=== PATIENT | male | born 1975 | race Caucasian/White ===

== ENCOUNTER 2017-08-06 19:49 | Emergency (ER) | payer BC, SELFPAY ==
[2017-08-06 19:50] VITALS: BP 150/102; PULSE 95; RESP 18; TEMP 36.6; O2SAT 98; BMI 28.3
--- NOTE | 2017-08-06 21:22 | RAD_ITS ---
STUDY: X-RAY CHEST REASON FOR EXAM: Male, 42 years old. Chest pain TECHNIQUE: Single AP portable view of the chest. COMPARISON: 11/21/13. FINDINGS: The lungs are clear and expanded. There is no demonstrated pleural abnormality. Normal size heart. Normal mediastinum and yvonne. Normal visualized pulmonary arteries. Normal visualized aortic arch and descending thoracic aorta. Normal visualized thoracic spine. Normal visualized ribs, clavicles, and shoulders. There is no demonstrated abnormality of the visualized soft tissue structures of the upper abdomen. RAD/Chest 1 View (Portable) IMPRESSION: Normal x-ray examination of the chest. Electronically Signed: Alexandro Mishra MD at 21:53 EDT , Service support ,
--- NOTE | 2017-08-06 21:22 | EKG12_ITS ---
Test Reason : CP Blood Pressure : / mmHG Vent. Rate : 086 BPM Atrial Rate : 086 BPM P-R Int : 134 ms QRS Dur : 090 ms QT Int : 362 ms P-R-T Axes : 031 024 010 degrees QTc Int : 433 ms Normal sinus rhythm with sinus arrhythmia Normal ECG Confirmed by NIKITA STEVENS, CHRISSIE ([id number]), assistant production editor RUPINDER EPREZ ([id number] on 08/08/2017 1:10:08 PM Referred By: LINDA BASS Confirmed By:CHRISSIE SHELTON MD
[2017-08-06] MEDS: 0.9% Normal Saline 1,000 ML 1000 ML IV (21:24)
[2017-08-06 21:42] VITALS: BP 120/78; PULSE 78; RESP 17; O2SAT 95
[2017-08-06 22:11] VITALS: PULSE 61; RESP 15; O2SAT 97
--- NOTE | 2017-08-06 22:13 | ED.VISSUMM ---
- ER Visit Summary Date of Service: 08/06/17 Chief Complaint: Chest pain History of Present Illness: The patient is a 42 M evaluation of chest pain. Patient states that this afternoon between 2 and 3:00 can have a chest pain which she describes as a pressure and feeling very anxious and short of breath. He states he had tingling in his arms which she describes as icicles. This is been under a lot of stress. His dad recently is now having to move his mom to his place. He has children 19-year-old daughter who is etc. States he tried rest but could not. He states he feels exhausted now but the pain has subsided. He states he gets nervous about chest pain because his father had his first HI in his 40s. Mr. Estes is a smoker and chews tobacco. Physical Examination: Afebrile vital signs are stable Gen: Well-nourished well-developed Head: Normocephalic atraumatic Eyes: Perrl EOMI ENT: TMs clear no rhinorrhea moist mucous membranes Neck: Supple no lymphadenopathy no JVD nontender CVS: Regular rate rhythm no murmurs normal S1-S2 Respiratory: No distress clear to auscultation bilaterally chest nontender Abdomen: Soft nontender nondistended normal bowel sounds no masses Back: Nontender Extremity: Nontender no edema Skin: Normal color no rash Neuro: alert orientated ?3 CN II-XII intact normal strength sensation reflexes gait cerebellar Psych: Patient is slightly anxious Test Results: G shows a sinus rhythm at a rate of 86. This is unchanged from April 2017. His troponin is negative. Chest x-ray negative. Emergency Department Course and Treatment: The patient will be discharged home. He is to follow-up with his doctor. He is to do relaxation techniques when he is feeling stressed. Return if worsening. Impression: 1. Chest pain This note was generated with [employer] dictation software. It may contain incorrect words, spelling, and punctuation that were not noted in review of the chart prior to signing ED Disposition - Plan for ED Patient: Disposition: Home or Assisted Living Chief Complaint: Chest Pain Instructions: ED Panic Attack, ED Chest Pain Atypical Unkn Cause Referrals: Thony Neves DO [STAFF PHYSICIAN] - 1-2 Weeks
[2017-08-06 22:16] VITALS: BP 130/82
--- NOTE | 2017-08-06 22:17 | ED.DCSUM_ITS ---
- ER Visit Summary Date of Service: 08/06/17 Chief Complaint: Chest pain History of Present Illness: The patient is a 42 M evaluation of chest pain. Patient states that this afternoon between 2 and 3:00 can have a chest pain which she describes as a pressure and feeling very anxious and short of breath. He states he had tingling in his arms which she describes as icicles. This is been under a lot of stress. His dad recently is now having to move his mom to his place. He has children 19-year-old daughter who is etc. States he tried rest but could not. He states he feels exhausted now but the pain has subsided. He states he gets nervous about chest pain because his father had his first CT in his 40s. Mr. Estes is a smoker and chews tobacco. Physical Examination: Afebrile vital signs are stable Gen: Well-nourished well-developed Head: Normocephalic atraumatic Eyes: Perrl EOMI ENT: TMs clear no rhinorrhea moist mucous membranes Neck: Supple no lymphadenopathy no JVD nontender CVS: Regular rate rhythm no murmurs normal S1-S2 Respiratory: No distress clear to auscultation bilaterally chest nontender Abdomen: Soft nontender nondistended normal bowel sounds no masses Back: Nontender Extremity: Nontender no edema Skin: Normal color no rash Neuro: alert orientated ?3 CN II-XII intact normal strength sensation reflexes gait cerebellar Psych: Patient is slightly anxious Test Results: G shows a sinus rhythm at a rate of 86. This is unchanged from April 2017. His troponin is negative. Chest x-ray negative. Emergency Department Course and Treatment: The patient will be discharged home. He is to follow-up with his doctor. He is to do relaxation techniques when he is feeling stressed. Return if worsening. Impression: 1. Chest pain This note was generated with [employer] dictation software. It may contain incorrect words, spelling, and punctuation that were not noted in review of the chart prior to signing ED Disposition - Plan for ED Patient: Disposition: Home or Assisted Living Chief Complaint: Chest Pain Instructions: ED Panic Attack, ED Chest Pain Atypical Unkn Cause Referrals: Thony Neves DO [STAFF PHYSICIAN] - 1-2 Weeks
== END 2017-08-06 22:23 | disposition home or self-care (01) ==
PROVIDERS: Emergency Provider Emergency Medicine
DX: R07.9 Chest pain, unspecified (principal); R06.00 Dyspnea, unspecified; R20.2 Paresthesia of skin; R68.2 Dry mouth, unspecified; F17.200 Nicotine dependence, unspecified, uncomplicated; F17.220 Nicotine dependence, chewing tobacco, uncomplicated
CPT/HCPCS: 71045; 84484; 93005; 99285; J7030

== ENCOUNTER 2017-11-11 05:20 | Emergency (ER) | payer BC, SELFPAY ==
[2017-11-11 05:20] VITALS: BP 124/77; PULSE 66; RESP 16; TEMP 36.6; O2SAT 96; BMI 30.8
--- NOTE | 2017-11-11 05:54 | CT_ITS ---
STUDY: CT ABDOMEN AND PELVIS WITH CONTRAST REASON FOR EXAM: Male, 42 years old. RIGHT lower quadrant abdominal pain RADIATION DOSAGE (If Supplied By Facility): CTDIvol = ( 15.77 ) mGy, DLP = ( 982.42 ) mGycm TECHNIQUE: Transaxial images were obtained from the dome of the diaphragm to the symphysis pubis without oral contrast. 100 ml of Isovue 300 contrast was administered. Sagittal and coronal images were reconstructed. Individualized dose optimization techniques were used for this CT. COMPARISON: None. FINDINGS: The visualized lung bases are unremarkable. The visualized portions of the heart are within normal limits. Normal liver. Normal gallbladder and extrahepatic biliary system. Normal spleen. Normal pancreas. Normal bilateral adrenal glands. Normal right kidney. There is a 4 mm stone in the upper pole of the LEFT kidney. There are NO ureteral stones. There is NO hydronephrosis. Normal visualized stomach. Normal small intestine. Normal colon. The appendix is visualized and appears normal. Normal abdominal aorta. 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 Normal retroperitoneum. Normal urinary bladder. There is NO ascites, free air, abscess or adenopathy. Normal abdominal wall. Normal osseous structures. CT/Abdomen/Pelvis W IV Cont ONLY IMPRESSION: There is a 4 mm stone in the upper pole of the LEFT kidney. There are NO ureteral stones. There is NO hydronephrosis. Normal visualized stomach. Normal small intestine. Normal colon. The appendix is visualized and appears normal. 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 There is NO ascites, free air, abscess or adenopathy. Electronically Signed: Max Davis MD at 7:18 EDT , Service support ,
--- NOTE | 2017-11-11 05:58 | ED.DCSUM_ITS ---
- ER Visit Summary Date of Service: 11/11/17 Chief Complaint: Right lower quadrant abdominal pain History of Present Illness: The patient is a 42 M worsening right lower quadrant abdominal pain in the past 2 days. States pain started inside hip region radiated down into his back. Denies fever, chills, sweats. Worsen this morning. Worse with car rides. No history of similar. No past medical history. Last meal was 8 hours ago. No urinary symptoms. No surgical history. No allergies. Physical Examination: General: Alert and oriented ?3, mild distress HEENT: Normocephalic, atraumatic. Moist mucosa membranes Neck: supple, nontender. Cardiovascular: Regular rate and rhythm, no murmurs Respiratory: Normal breath sounds, symmetric, no distress Abdomen: Soft, positive McBurney's, positive Rovsing's, positive obturators. Positive peritoneal right lower quadrant. Extremities: Nontender, no edema, pulses intact ?4 Neuro: no focal neurological deficits. Test Results: CBC white count 8.3, hemoglobin 15.3. Potassium 4.0. Creatinine 0.85. Coags normal. CT abdomen pelvis pending. UA pending Emergency Department Course and Treatment: Patient peritoneal findings on my examination. Progressing symptoms. Workup initiated with labs and IV contrast scan. Given morphine, IV fluids, kept n.p.o. Initial discussion with on-call surgeon, Dr. Altamirano, states he has office and would not have time to see the patient immediately or to surgery this morning. He deferred to a.m. team. I spoke with Dr. Levy, who came and evaluated the patient in the ED. Labs were stable. Reviewed IV contrast studies of CT, he did not see any inflammation around the appendix, he evaluated the patient. He recommended p.o. delayed contrast for visualization of the appendix. This is pending. Patient will be signed out to morning physician. Treatment Plan: [] Disposition: Pending Impression: Right lower quadrant abdominal pain This note was generated with [employer] dictation software. It may contain incorrect words, spelling, and punctuation that were not noted in review of the chart prior to signing ED Disposition - Plan for ED Patient: Chief Complaint: Abd Pain Referrals: Care Physician,No Primary [Primary Care Provider] -
[2017-11-11] MEDS: 0.9% Normal Saline 1,000 ML 1000 ML IV (06:07)
[2017-11-11] MEDS: Morphine 4 MG/ML Syringe IV (06:07)
[2017-11-11 06:17] LABS: Absolute Lymphocyte Count 2.13 X10^3/ul (0.83-4.51); Basophil# 0.03 X10^3/uL; Basophil% 0.4 % (0-1); Eosinophil# 0.22 X10^3/uL; Eosinophils% 2.7 % (0-5); Hematocrit 43.8 % (40-54); Hemoglobin 15.3 g/dl (13.0-16.5); Lymphocyte # 2.13 X10^3/ul (4.0); Lymphocyte % 25.7 % (19-41); Mean Corp Hgb Conc 34.9 g/gl (32-36); Mean Corpuscular Volume 88.7 fL (80-94); Mean Platelet Vol. 8.6 fl (6.2-12.0); Monocyte# 0.89 X10^3/uL; Monocyte% 10.7 % (0-10); Neutrophil # 5.01 X10^3/uL (2.7-7.7); Neutrophil % 60.4 % (47-70); Platelet Count 208 K/mm3 (150-450); RBC Distribution Width CV 13.2 % (11.6-14.6); RBC Distribution Width SD 42.9 fl (35.1-43.9); Red Blood Count 4.94 M/mm3 (4.6-6.2); White Blood Count 8.3 K/mm3 (4.4-11.0)
[2017-11-11 06:25] LABS: POSITIVE COUNT NO; POSITIVE DIFFERENTIAL NO; POSITIVE MORPHOLOGY NO
[2017-11-11 06:26] LABS: Prothrombin Time (Protime)PT. 13.4 SECONDS (11.7-14.9)
[2017-11-11 06:27] LABS: Partial Thromboplast Time 30.8 Seconds (24.1-36.2)
[2017-11-11 06:28] LABS: Anion Gap 5 (5-15); BUN 8 mg/dL (7-18); BUN/Creat Ratio 9.5 RATIO (10-20); Calcium,Total 8.8 mg/dL (8.5-10.1); Chloride 108 mmol/L (98-107); Creatinine, Serum 0.85 mg/dL (0.70-1.30); EST Glomerular Filtration Rate 106 mL/min (>60); Est Glom Filt Rate - Afr Amer 128 mL/min (>60); Estimated Creatinine Clearance 103.21 ml/min; Glucose 101 mg/dL (74-106); Sodium Level 141 mmol/L (136-145)
--- NOTE | 2017-11-11 06:48 | NURSING ---
DR MADRID IN WITH PATIENT
--- NOTE | 2017-11-11 07:01 | CT_ITS ---
STUDY: CT ABDOMEN AND PELVIS WITHOUT CONTRAST REASON FOR EXAM: Male, 42 years old. Right lower quadrant pain. RADIATION DOSAGE (If Supplied By Facility): CTDIvol = ( 11.33 ) mGy, DLP = ( 336.61 ) mGycm TECHNIQUE: Transaxial images were obtained from the dome of the diaphragm to the symphysis pubis without oral contrast, and without intravenous contrast. Sagittal and coronal images were reconstructed. Individualized dose optimization techniques were used for this CT. COMPARISON: Comparison is made with prior examination done earlier in the day at 6:40 AM. FINDINGS: Mild degree of mucosal thickening of the terminal ileum. Small mesenteric lymph nodes are seen in the mesentery in the right lower quadrant. Normal colon. The appendix is visualized and appears normal. Normal abdominal aorta. 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 Normal retroperitoneum. Normal urinary bladder. Normal abdominal wall. Normal osseous structures. CT/Limited or Localized F/U CT IMPRESSION: Mild degree of mucosal thickening of the terminal ileum. Small mesenteric lymph nodes in the right lower quadrant. The appendix is unremarkable. Electronically Signed: Noe Barr MD at 10:25 EDT Tel [phone], Service support ,
[2017-11-11 07:20] LABS: Bacteria 0 SEEN /hpf (None Seen); Mucous, Urine 0 SEEN /hpf (<or=2+); Red Blood Cells-Urine 0 SEEN /hpf (0-5); Squamous Epithelial Cells - UA 0 SEEN /hpf (0-5); White Blood Cells 0 SEEN /hpf (0-5)
[2017-11-11 07:27] LABS: Color, Urine Yellow (Yellow); Glucose, Dipstick Normal (Normal); Ketone-Dipstick Negative (Negative); Leukocyte Esterase-Dipstick Negative /ul (Negative); Nitrite-Dipstick Negative (Negative); Occult Blood-Urine Negative /ul (Negative); Protein-Dipstick Negative (Negative); Urine Bilirubin Dipstick Negative (Negative); Urine Clarity Clear (Clear); Urine Urobilinogen Normal (Normal); Urine pH 6.5 (5.0 - 8.0)
[2017-11-11 08:29] VITALS: BP 97/66; PULSE 58; RESP 14; O2SAT 99
[2017-11-11] MEDS: 0.9% Normal Saline 1,000 ML 150 ML IV (08:30)
[2017-11-11 10:06] VITALS: BP 110/52; PULSE 66; RESP 18; O2SAT 100
--- NOTE | 2017-11-11 11:17 | NURSING ---
DR MADRID PAGEYamilet
--- NOTE | 2017-11-11 11:35 | PCM.CONS.GEN ---
Reason for Consult Date of Consultation: 11/11/17 History of Present Illness: The patient is a 42 year old M with a 2 day history of right lower quadrant abdominal pain. The pain started in his right lower quadrant and his persistent in his right lower quadrant since Friday evening. The pain has actually seemed to spread and is a little more posterior and heading towards the entire right side. He notes no true peritoneal signs, but does note discomfort when going over bumps in the car. He denies diarrhea. He denies change in bowel habits. He denies fever or chills. He notes some degree of anorexia but ate last night. He notes no nausea or vomiting. Due to persistent pain. The patient presented to [facility] emergency department. Clinically, with significant pain in the right lower quadrant. I was contacted for probable appendicitis early on in his presentation. I presented to evaluate the patient. A CT scan of the abdomen and pelvis was obtained with IV and without oral contrast. This demonstrated a left-sided renal stone. Normal-appearing appendix without obvious abnormalities. Laboratory studies demonstrated normal white blood cell count with a degree of monocytosis. the patient had been in the emergency department approximately 7 months previously for epigastric symptoms. He had an unremarkable CT scan of the abdomen and pelvis at that time. Past Medical History Past Medical History (Chronic Problems): Chronic Problems Tobacco use (Chronic) Chew and cigarette usage Irritable bowel syndrome (Chronic) Anxiety disorder (Chronic) Allergies No Known Allergies Allergy (Verified 11/11/17 05:23) Home Medications: Ambulatory Orders Medication Instructions Recorded Naproxen [Naprosyn] 500 mg PO BID PRN #20 tab 11/11/17 Surgical History: no surgical history Psychiatric History: Anxiety Smoking Status: Current every day smoker - *Family History Maternal History Items: Diabetes, Hypertension Paternal History Items: Heart Disease Review of Systems Constitutional: Reports: Malaise. Denies: Chills, Fever, Weight Change HEENT: Denies: Head Aches, Sinus Congestion, Sinus Drainage Cardiovascular: Denies: Chest Pain, Palpitations Respiratory: Denies: Cough, Shortness of breath at rest, Sputum production Gastrointestinal: Reports: Abdominal Pain. Denies: Nausea, Vomiting Genitourinary: Denies: Dysuria Musculoskeletal: Denies: Joint Pain, Joint Tenderness Skin: Denies: Rash, Wounds Neurological: Denies: Numbness, Tingling, Focal weakness Psychiatric: Denies: Anxiety, Depression, Homicidal Ideations, Suicidal Ideations Hematologic/ Lymphatic: Denies: Easy Bruising, Easy Bleeding - Physical Exam General: Alert, Oriented x3, Cooperative Lungs: Clear to auscultation, Normal air movement Cardiovascular: Regular rate, No murmurs Abdomen: Bowel Sounds Present, Soft, Tender - right side, mostly in the right lower quadrant without peritoneal signs. No CVA tenderness. No suprapubic tenderness. No palpable hernias Vital Signs Temp Pulse Resp BP Pulse Ox 97.8 F 66 18 110/52 L 100 11/11/17 05:20 11/11/17 10:06 11/11/17 10:06 11/11/17 10:06 11/11/17 10:06 Oxygen Delivery Method Room Air Weight: 86.6 kg Body Mass Index (BMI) 30.8 Laboratory Tests Past 24 Hrs 11/11/17 11/11/17 11/11/17 06:00 06:00 06:00 WBC 8.3 RBC 4.94 Hgb 15.3 Hct 43.8 MCV 88.7 MCH 31.0 MCHC 34.9 RDW 13.2 RDW Differential 42.9 Plt Count 208 MPV 8.6 Immature Gran % (Auto) 0.100 Neut % (Auto) 60.4 Lymph % (Auto) 25.7 [place] % (Auto) 10.7 H Eos % (Auto) 2.7 Baso % (Auto) 0.4 Absolute Neuts (auto) 5.0 Absolute Lymphs (auto) 2.13 Total Counted Not Reportable PT 13.4 INR 1.0 APTT 30.8 Sodium 141 Potassium 4.0 Chloride 108 H Carbon Dioxide 28.0 Anion Gap 5 BUN 8 Creatinine 0.85 Estim Creat Clear Calc 103.21 Est GFR (MDRD) Af Amer 128 Est GFR (MDRD) Non-Af 106 BUN/Creatinine Ratio 9.5 L Glucose 101 Calcium 8.8 Urine Color Urine Clarity Urine pH Ur Specific [place] Urine Protein Urine Glucose (UA) Urine Ketones Urine Occult Blood Urine Nitrite Urine Bilirubin Urine Urobilinogen Ur Leukocyte Esterase Urine RBC Urine WBC Ur Squamous Epith Cells Urine Bacteria Urine Mucus Blood Type Antibody Screen 11/11/17 11/11/17 06:00 07:15 WBC RBC Hgb Hct MCV MCH MCHC RDW RDW Differential Plt Count MPV Immature Gran % (Auto) Neut % (Auto) Lymph % (Auto) [place] % (Auto) Eos % (Auto) Baso % (Auto) Absolute Neuts (auto) Absolute Lymphs (auto) Total Counted PT INR APTT Sodium Potassium Chloride Carbon Dioxide Anion Gap BUN Creatinine Estim Creat Clear Calc Est GFR (MDRD) Af Amer Est GFR (MDRD) Non-Af BUN/Creatinine Ratio Glucose Calcium Urine Color Yellow Urine Clarity Clear Urine pH 6.5 Ur Specific [place] 1.010 Urine Protein Negative Urine Glucose (UA) Normal Urine Ketones Negative Urine Occult Blood Negative Urine Nitrite Negative Urine Bilirubin Negative Urine Urobilinogen Normal Ur Leukocyte Esterase Negative Urine RBC 0 SEEN Urine WBC 0 SEEN Ur Squamous Epith Cells 0 SEEN Urine Bacteria 0 SEEN Urine Mucus 0 SEEN Blood Type O POSITIVE Antibody Screen NEGATIVE Assessment/Plan All Active Problems GI bleed (Acute) given the relatively impressive right lower quadrant exam and a negative CT scan without oral contrast, I asked that the CT scan be repeated with oral contrast and the urinalysis be obtained. Urinalysis was unremarkable. Repeat CT scan was interpreted as some terminal ileal thickening and lymph nodes, possibly consistent with ileitis. When impression therefore is right lower quadrant abdominal pain-not consistent with appendicitis. Questionable viral infection. Feel its reasonable for the patient discharged home on nonsteroidal medications and liquid diet until his symptoms improve. If the patient is a persistent issues, I would have him follow up in my office for repeat evaluation and likely plan for colonoscopy, hopefully, small bowel enteroscopy.
--- NOTE | 2017-11-11 11:35 | ED.DEP ---
ED Disposition - Plan for ED Patient: Disposition: Home or Assisted Living Chief Complaint: Abd Pain Instructions: ED Abdominal Pain Unkn Cause Prescriptions: Naproxen [Naprosyn] 500 mg PO BID PRN #20 tab Referrals: Care Physician,No Primary [Primary Care Provider] - Tom Levy MD [STAFF PHYSICIAN] -
[2017-11-11 11:48] VITALS: BP 123/95; PULSE 76; RESP 18; O2SAT 99
== END 2017-11-11 11:52 | disposition home or self-care (01) ==
PROVIDERS: Surgery; Emergency Provider Emergency Medicine
PROC: 0DTJ4ZZ Resection of Appendix, Percutaneous Endoscopic Approach (ICD-10-PCS; CPT 44970; principal; 2017-11-11 11:40)
DX: K52.9 Noninfective gastroenteritis and colitis, unspecified (principal); R10.31 Right lower quadrant pain; Z72.0 Tobacco use
CPT/HCPCS: 74177; 76380; 80048; 81001; 85025; 85610; 85730; 86850; 86900; 96361; 96374; 99283; J7030; Q9967; A4216

== ENCOUNTER 2021-08-15 23:20 | Emergency (ER) | payer MEDICAID, SELFPAY ==
[2021-08-15 23:21] VITALS: BP 129/88; PULSE 126; RESP 19; TEMP 36.4; O2SAT 99; BMI 30.5
--- NOTE | 2021-08-15 23:37 | EKG12_ITS ---
Test Reason : OTHER\PAIN Blood Pressure : / mmHG Vent. Rate : 072 BPM Atrial Rate : 072 BPM P-R Int : 128 ms QRS Dur : 094 ms QT Int : 380 ms P-R-T Axes : 030 055 023 degrees QTc Int : 416 ms Normal sinus rhythm Normal ECG Confirmed by KRISTOFER STEVENS, SAMINA ([id number]), brands editor ADRIENNE BOOTH ([id number]) on 08/17/2021 9:41:43 AM Referred By: XIN Confirmed By:TRISTAN MINER MD
--- NOTE | 2021-08-15 23:44 | EX.ED.DYSGE1 ---
HPI History of Present Illness Chief Complaint: Other, Pain/Inj Narrative Narrative: Patient is a 46-year-old male who states for the past 2 days he has been having intractable hiccups. He states with this intermittent bouts where he has shortness of breath. He states that he also has noticed some pain radiating up into the mid chest after the hiccups have been present for the past 24 hours. He denies any nausea or vomiting or diaphoresis with the persistent hiccups and worsening symptoms presents for evaluation [facility] Medical History no medical history Home Medications NK 08/15/21 [History Last Taken Unknown] Allergy/AdvReac Type Severity Reaction Status Date / Time No Known Allergies Allergy Verified 08/15/21 23:22 Social History Smoking Status: Current every day smoker tobacco type: cigarettes ROS ROS ED Constitutional Constitutional ED: Denies chills or fever(s) ENT ENT ED: Denies sore throat Cardiovascular Cardiovascular: Denies chest pain Respiratory/Chest Respiratory/Chest: Reports dyspnea; Denies cough Gastrointestinal Gastrointestinal: Denies abdominal pain, diarrhea, nausea or vomiting Genitourinary Genitourinary ED: Denies dysuria Musculoskeletal Musculoskeletal: Denies myalgias Integumentary Denies rash Neurologic Neurologic: Denies headache(s) Hematologic/Lymphatic Hematologic/Lymphatic: Denies easy bleeding or easy bruising EXAM Physical Exam Const Vital Signs: 08/15/21 23:21 Temperature 97.6 F L Temperature Source Temporal Pulse Rate 126 H Respiratory Rate 19 H Blood Pressure 129/88 H Blood Pressure Mean 101 Pulse Ox 99 Oxygen Delivery Method Room Air Positive well nourished and well developed General Appearance ED: well developed HEENT Reports moist mucous membranes HEENT Narrative: No tongue or lip swelling no oral lesions no airway edema or compromise Eyes PERRL and EOMs intact bilaterally Neck supple Neck Narrative: No crepitance palpated Resp normal respiratory effort and clear to auscultation bilaterally Cardio regular rhythm Rate: tachycardic and other Other Details: Radial pulses are +2-4 bilaterally are equal and symmetric GI normal to inspection, nondistended, normoactive bowel sounds, non-tender, non-distended and no masses Auscultation: normoactive bowel sounds Palpation: soft Extremity normal to inspection Extremity Narrative: No asymmetric edema no pitting edema negative Homans' sign bilaterally Neuro oriented x3 and CN's II-XII intact bilaterally Sensorium / Orientation: alert Motor Exam: strength 5/5 throughout Psych mental status grossly normal Skin no rashes or lesions noted MDM MDM MDM Narrative Medical decision making narrative: Patient presented to the ER slightly tachycardic but afebrile. He was able to talk in full sentences and his pulse ox on room air was 99%. I felt that based on his history and physical exam his symptoms of shortness of breath remain related to spasm of the diaphragm. However as he did complain of mild shortness of breath I did elect to perform basic laboratory studies EKG and chest x-ray. Work-up revealed no acute findings and after treatment with Thorazine the hiccups resolved. He also had normalization of his vital signs. On reevaluation he is resting comfortably and remains in no acute respiratory distress and is therefore safe for discharge. Lab Data Attestation: I reviewed the patient's lab results. Labs: Laboratory Results - last 24 hr 08/15/21 08/15/21 23:54 23:54 WBC 9.5 RBC 4.62 Hgb 14.5 Hct 41.2 MCV 89.2 MCH 31.4 MCHC 35.2 RDW Std Deviation 39.8 RDW Coeff of Jorge 12.4 Plt Count 282 MPV 9.2 Immature Gran % (Auto) 0.300 Neut % (Auto) 66.4 Lymph % (Auto) 20.0 [place] % (Auto) 9.3 Eos % (Auto) 3.4 Baso % (Auto) 0.6 Absolute Neuts (auto) 6.3 Absolute Lymphs (auto) 1.90 Nucleated RBC % 0 Sodium 136 Potassium 3.7 Chloride 101 Carbon Dioxide 29.0 Anion Gap 6 BUN 16 Creatinine 0.87 Estim Creat Clear Calc 100.25 Est GFR (MDRD) Af Amer 121 Est GFR (MDRD) Non-Af 100 BUN/Creatinine Ratio 18.3 Glucose 130 H Calcium 8.8 Magnesium 2.2 Radiography Diagnostic Testing: Clinical Impression(s) from Imaging Studies Chest X-Ray 08/16/21 00:00 IMPRESSION: Normal x-ray examination of the chest. Electronically Signed: Moris Blackwood MD at 0:26 EDT , 2 view chest x-ray as interpreted by the emergency medicine physician reveals no acute infiltrate pneumothorax or pleural effusion Discharge Plan Triage Chief Complaint: Other, Pain/Inj ED Provider: Carmelo Barnett Dx/Rx/DC Orders Clinical Impression: Intractable hiccups Instructions: ED Hiccups Prescriptions: No Action NK RF: 0 Primary Care Provider: Care Physician,No Primary Referrals: Teo Mora MD [STAFF PHYSICIAN] - 3-5 Days if not improving Care Physician,No Primary [Primary Care Provider] - Disposition Disposition: Home, Self Care
[2021-08-15] MEDS: 0.9% Normal Saline 1,000 ML 999 ML IV (23:49)
[2021-08-15 23:57] LABS: Absolute Neutrophil Count 6.3 X10^3/uL (2.0-7.7); Basophil# 0.06 X10^3/uL; Basophil% 0.6 % (0-1); Eosinophil# 0.32 X10^3/uL; Eosinophils% 3.4 % (0-5); Hematocrit 41.2 % (40-54); Hemoglobin 14.5 g/dL (13.0-16.5); Mean Corp Hgb Conc 35.2 g/dL (32-36); Mean Corpuscular Hgb 31.4 pg (27.0-32.0); Mean Corpuscular Volume 89.2 fL (80-94); Mean Platelet Vol. 9.2 fl (6.2-12.0); Monocyte# 0.88 X10^3/uL; Monocyte% 9.3 % (0-10); NRBC Flagged by Analyzer 0 % (0-5); Neutrophil # 6.29 X10^3/uL (2.7-7.7); Neutrophil % 66.4 % (47-70); Platelet Count 282 K/mm3 (150-450); RBC Distribution Width CV 12.4 % (11.6-14.6); RBC Distribution Width SD 39.8 fl (35.1-43.9); Red Blood Count 4.62 M/mm3 (4.6-6.2); White Blood Count 9.5 K/mm3 (4.4-11.0)
[2021-08-16] MEDS: ChlorproMAZINE 50 MG/2 ML Ampul IM
--- NOTE | 2021-08-16 | RAD_ITS ---
STUDY: X-RAY CHEST REASON FOR EXAM: Male, 46 years old. dyspnea TECHNIQUE: PA and lateral COMPARISON: 08/06/2017 FINDINGS: The lungs are clear and expanded. There is no demonstrated pleural abnormality. Normal size heart. Normal mediastinum and yvonne. Normal visualized pulmonary arteries. Normal visualized aortic arch and descending thoracic aorta. Normal visualized thoracic spine. Normal visualized ribs, clavicles, and shoulders. There is no demonstrated abnormality of the visualized soft tissue structures of the upper abdomen. RAD/Chest PA and Lateral IMPRESSION: Normal x-ray examination of the chest. Electronically Signed: Moris Blackwood MD at 0:26 EDT ,
[2021-08-16 00:18] LABS: Anion Gap 6 (5-15); BUN 16 mg/dL (7-18); BUN/Creat Ratio 18.3 RATIO (10-20); Calcium,Total 8.8 mg/dL (8.5-10.1); Chloride 101 mmol/L (98-107); Creatinine, Serum 0.87 mg/dL (0.70-1.30); EST Glomerular Filtration Rate 100 mL/min (>60); Est Glom Filt Rate - Afr Amer 121 mL/min (>60); Estimated Creatinine Clearance 100.25 ml/min; Glucose 130 mg/dL (74-106); Magnesium 2.2 mg/dL (1.6-2.6); Potassium 3.7 mmol/L (3.5-5.1); Sodium Level 136 mmol/L (136-145)
== END 2021-08-16 00:45 | disposition home or self-care (01) ==
PROVIDERS: Emergency Provider Emergency Medicine; Visit Provider Emergency Medicine
DX: R06.6 Hiccough (principal); R07.9 Chest pain, unspecified; R06.02 Shortness of breath; F17.210 Nicotine dependence, cigarettes, uncomplicated
CPT/HCPCS: 71046; 80048; 83735; 85025; 93005; 96360; 96372; 99283; J7030; A4216

== ENCOUNTER 2023-08-14 20:50 | Observation (INO) | payer MEDICAID, SELFPAY ==
[2023-08-14 20:51] VITALS: BP 134/87; PULSE 115; RESP 18; TEMP 36.4; O2SAT 99; BMI 28.2
[2023-08-14 21:07] VITALS: BP 128/90; PULSE 111; RESP 18; O2SAT 97
--- NOTE | 2023-08-14 21:10 | EDS_ITS ---
HPI History of Present Illness Chief Complaint: Substance Abuse Informant: patient Narrative Narrative: Presents requesting detox from fentanyl. Has been using this for years. Relapse in 2020 uses almost daily multiple times a day. Last use this morning. Will have withdrawal symptoms with cramps and sweats. Currently denies any other symptoms. 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 His last rehab was 2018. Denies alcohol denies any other recreational drugs. He is IV drug user and denies any serious infections in the past. Prior similar symptoms: Yes PFSH PFSH Medical History Anxiety and depression Irritable bowel syndrome IV drug abuse Polysubstance abuse Tobacco use Home Medications NK 08/15/21 [History Last Taken Unknown] Allergy/AdvReac Type Severity Reaction Status Date / Time No Known Allergies Allergy Verified 08/14/23 20:52 Family History (Updated 08/14/23 @ 22:[address] Carmita Spann MD) Mother Rheumatoid arthritis Diabetes Father CAD (coronary artery disease) Heart disease Hypertension Myocardial infarction Surgical History History of dental surgery Social History (Updated 08/14/23 @ 22:[address] Carmita Spann MD) household members: family Smoking Status: Current every day smoker tobacco type: cigarettes Smoking packs per day: 1 Smoking cigarettes per day: 20.0 alcohol intake: former details: Used to remotely drink more heavy, currently rare intake. substance use type: heroin, opiates, IV drugs and methamphetamine ROS ROS ED Constitutional Constitutional ED: Denies chills, fever(s) or sweats Eyes Eyes: Denies change in vision ENT ENT ED: Denies dysphagia or sore throat Cardiovascular Cardiovascular: Denies chest pain, leg edema, palpitations or racing heartbeat Respiratory/Chest Respiratory/Chest: Denies cough, dyspnea or dyspnea on exertion Gastrointestinal Gastrointestinal: Denies abdominal pain, diarrhea, nausea or vomiting Genitourinary Genitourinary ED: Denies dysuria, hematuria or urinary frequency Musculoskeletal Musculoskeletal: Denies back pain, extremity pain or neck pain Integumentary Denies rash or wounds Neurologic Neurologic: Denies headache(s), paresthesias or weakness EXAM Physical Exam Const Vital Signs: 08/14/23 20:51 08/14/23 21:07 Temperature 97.6 F L Temperature Source Temporal Pulse Rate 115 H 111 H Respiratory Rate 18 18 Blood Pressure 134/87 H 128/90 H Blood Pressure Mean 102 102 Pulse Ox 99 97 Oxygen Delivery Method Room Air Room Air Positive well nourished and well developed General Appearance ED: well developed and NAD HEENT Reports moist mucous membranes normocephalic and atraumatic Eyes PERRL, EOMs intact bilaterally and conjunctivae normal General Eye ED: Yes normal appearance of both eyes Neck no lymphadenopathy and supple General: Negative for tenderness Chest Wall Chest: Negative for tenderness Resp normal respiratory effort and normal air movement Effort and Inspection: symmetric chest movement; Negative for respiratory distress Cardio regular rhythm and no murmurs Rate: tachycardic Peripheral Pulses: pulses 2+ throughout GI normal to inspection, nondistended, normoactive bowel sounds and non-tender Palpation: Negative for guarding or rebound tenderness present Back/Spine no CVA tenderness and no thoracic nor lumbar tenderness Extremity normal to inspection General Extremety ED: Negative for edema or tenderness General Extremity: Negative for edema Neuro oriented x3 and no sensory deficits noted Sensorium / Orientation: awake and alert Skin Skin Narrative: Multiple puncture IV sticks right forearm, no surrounding erythema or drainage. MDM MDM MDM Narrative Medical decision making narrative: Interventions / MDM: Differential diagnosis: Opioid dependence, opiate withdrawal, IV drug user Diagnosis considered but do not suspect: N/A My EKG interpretation: N/A Imaging independently reviewed and interpreted by myself: N/A External documents reviewed: N/A Test considered but not ordered:N/A ED course: Patient nontoxic no active symptoms. No infections from IV punctures. Medical labs will be obtained. Will discuss with hospitalist for admission. Patient labs are stable alcohol negative. His talk screen was pending. I discussed with hospitalist Dr. Spann for admission. After admission toxicology screen returning positive for cocaine, amphetamines, ecstasy. Re-evaluation: stable Disposition discussed with patient/family/significant other: Patient Case discussed with consulting clinician: Hospitalist This note was generated with [employer] dictation software. It may contain incorrect words, spelling, and punctuation that were not noted in checking the note before signing. Lab Data Attestation: I reviewed the patient's lab results. Labs: Laboratory Results - last 24 hr 08/14/23 08/14/23 21:14 22:00 WBC 7.7 RBC 4.98 Hgb 14.5 Hct 42.3 MCV 84.9 MCH 29.1 MCHC 34.3 RDW Std Deviation 39.0 RDW Coeff of Jorge 12.6 Plt Count 286 MPV 8.6 Immature Gran % (Auto) 0.300 Neut % (Auto) 56.6 Lymph % (Auto) 29.3 [place] % (Auto) 8.2 Eos % (Auto) 4.8 Baso % (Auto) 0.8 Absolute Neuts (auto) 4.4 Absolute Lymphs (auto) 2.25 Nucleated RBC % 0 Sodium 142 Potassium 3.6 Chloride 108 H Carbon Dioxide 27.0 Anion Gap 7 BUN 16 Creatinine 0.95 Estim Creat Clear Calc 98.37 Est GFR (MDRD) Af Amer 109 Est GFR (MDRD) Non-Af 90 BUN/Creatinine Ratio 16.8 Glucose 109 H Calcium 9.1 Total Bilirubin 0.50 AST 18 ALT 24 Alkaline Phosphatase 83 Total Protein 7.8 Albumin 3.7 Globulin 4.1 Albumin/Globulin Ratio 0.9 Urine Opiates Screen NEGATIVE Urine Methadone Screen NEGATIVE Ur Barbiturates Screen NEGATIVE Ur Phencyclidine Scrn NEGATIVE Ur Amphetamines Screen POSITIVE H MDMA (Ecstasy) Screen POSITIVE H U Benzodiazepines Scrn NEGATIVE Urine Cocaine Screen POSITIVE H U Cannabinoids Screen NEGATIVE Ur Drug Screen Comment Ethyl Alcohol < 3.0 Discharge Plan Dx/Rx/DC Orders Clinical Impression: Opioid withdrawal, Opioid dependence, Intravenous drug user Disposition Disposition: Acute Care Hospital [facility] Discharge Date/Time: 08/14/23 23:00
[2023-08-14 21:35] LABS: Absolute Lymphocyte Count 2.25 X10^3/uL (0.83-4.51); Absolute Neutrophil Count 4.4 X10^3/uL (2.0-7.7); Basophil# 0.06 X10^3/uL; Basophil% 0.8 % (0-1); Eosinophil# 0.37 X10^3/uL; Eosinophils% 4.8 % (0-5); Hematocrit 42.3 % (40-54); Hemoglobin 14.5 g/dL (13.0-16.5); Lymphocyte # 2.25 X10^3/ul (0.83-4.51); Lymphocyte % 29.3 % (19-41); Mean Corp Hgb Conc 34.3 g/dL (32-36); Mean Corpuscular Hgb 29.1 pg (27.0-32.0); Mean Corpuscular Volume 84.9 fL (80-94); Mean Platelet Vol. 8.6 fl (6.2-12.0); Monocyte# 0.63 X10^3/uL; Monocyte% 8.2 % (0-10); NRBC Flagged by Analyzer 0 % (0-5); Neutrophil # 4.35 X10^3/uL (2.7-7.7); Neutrophil % 56.6 % (47-70); Platelet Count 286 K/mm3 (150-450); RBC Distribution Width CV 12.6 % (11.6-14.6); Red Blood Count 4.98 M/mm3 (4.6-6.2); White Blood Count 7.7 K/mm3 (4.4-11.0)
[2023-08-14 21:48] LABS: Alcohol, Blood (Medical)-Serum < 3.0 mg/dL
[2023-08-14 21:53] LABS: ALB/GLOB Ratio 0.9 RATIO (0.9-2.4); AST(SGOT) 18 U/L (15-37); Alanine Aminotransfer ALT/SGPT 24 U/L (16-61); Albumin, Serum 3.7 g/dL (3.2-5.0); Alkaline Phosphatase 83 U/L (45-117); Anion Gap 7 (5-15); BUN 16 mg/dL (7-18); BUN/Creat Ratio 16.8 RATIO (10-20); Calcium,Total 9.1 mg/dL (8.5-10.1); Chloride 108 mmol/L (98-107); Creatinine, Serum 0.95 mg/dL (0.70-1.30); EST Glomerular Filtration Rate 90 mL/min (>60); Est Glom Filt Rate - Afr Amer 109 mL/min (>60); Estimated Creatinine Clearance 98.37 ml/min; Globulin 4.1 g/dL (2.2-4.2); Glucose 109 mg/dL (74-106); Potassium 3.6 mmol/L (3.5-5.1); Protein, Total 7.8 g/dL (6.4-8.2); Sodium Level 142 mmol/L (136-145)
[2023-08-14 22:26] LABS: Amphetamine Urine VISTA POSITIVE (<1000 ng/mL); Barbiturate Urine VISTA NEGATIVE (< 200 ng/mL); Benzodiazepine Urine VISTA NEGATIVE (< 200 ng/mL); Cocaine Urine VISTA POSITIVE (< 300 ng/mL); Ecstacy Urine VISTA POSITIVE (< 500 ng/mL); Methadone Urine VISTA NEGATIVE (< 300 ng/mL); PCP Urine VISTA NEGATIVE (< 25 ng/mL); THC Urine VISTA NEGATIVE (< 50 ng/mL); Vista UDS pH Range 5
--- NOTE | 2023-08-14 22:27 | HP.PCM.HOS_ITS ---
HPI - General General Date of Admission: 08/14/23 Date of Service: 08/14/23 Chief Complaint: Acute Opiate Withdrawal HPI Narrative The patient is a 48 y/o M w/ PMHx: Prior diagnosis Anxiety/Depression but patient believes it was misdiagnosis in his youth, Tobacco use, Polysubstance use (Prior Heroin/Meth, currently IV Fentanyl 1/2 gm daily, started using again 2020 has been clean on suboxone prior) who presents to the [facility] ED on 08/14/23 w/ noted acute opiate withdrawal onset starting this evening following last dose of Fentanyl at ~ 11 am-noon on day of presentation with abdominal cramping, generalized body aches and pains, rhinorrhea, fatigue, restless leg, mild diaphoresis. Patient interested in attaining clean status. Workup in the ED included T97.6, heart rate 115, BP 134/87, respiratory rate 18, 99% on room air, CBC with WBC 7.7, hemoglobin 14.5, platelet 286 without marked shift, CMP with chloride 108, glucose 109 otherwise unremarkable, UDS with positive amphetamine, MDMA, cocaine, ethyl alcohol less than 3. [facility] Medical History Anxiety and depression Irritable bowel syndrome IV drug abuse Polysubstance abuse Tobacco use Home Medications NK 08/15/21 [History Last Taken Unknown] Allergy/AdvReac Type Severity Reaction Status Date / Time No Known Allergies Allergy Verified 08/14/23 20:52 Family History (Updated 08/14/23 @ 22:[address] Carmita Spann MD) Mother Rheumatoid arthritis Diabetes Father CAD (coronary artery disease) Heart disease Hypertension Myocardial infarction Surgical History (Updated 08/14/23 @ 22:[address] Carmita Spann MD) History of dental surgery Social History (Updated 08/14/23 @ 22:[address] Carmita Spann MD) household members: family Smoking Status: Current every day smoker tobacco type: cigarettes Smoking packs per day: 1 Smoking cigarettes per day: 20.0 alcohol intake: former details: Used to remotely drink more heavy, currently rare intake. substance use type: heroin, opiates, IV drugs and methamphetamine ROS ROS Narrative Admission Review of Systems: CONSTITUTIONAL: No weight loss, fever, chills, + weakness or fatigue. HEENT: + Rhinorrhea, congestion. Eyes: No visual loss, blurred vision, double vision or yellow sclerae. Ears, Nose, Throat: No hearing loss, sneezing. SKIN: No rash or itching, lesions, wounds. CARDIOVASCULAR: No chest pain, chest pressure or chest discomfort, palpitations, edema, orthopnea, syncopal events. RESPIRATORY: No shortness of breath, cough or sputum, wheezing, hemoptysis. GASTROINTESTINAL: + anorexia, mild abdominal cramping, nausea. No emesis, abdominal pain, melena, BRBPR. GENITOURINARY: No dysuria, frequency, urgency or retention. NEUROLOGICAL: No headache, dizziness, syncope, paralysis, ataxia, numbness or tingling in the extremities, focal weakness, change in bowel or bladder control, seizure. MUSCULOSKELETAL: + muscle, back pain, joint pain or stiffness. HEMATOLOGIC: No anemia, bleeding or bruising. LYMPHATICS: No enlarged nodes. No history of splenectomy. PSYCHIATRIC: + Prior diagnosis of anxiety and depression, denied per patient. ENDOCRINOLOGIC: + reports of sweating, cold or heat intolerance. No polyuria or polydipsia. ALLERGIES: No history of asthma, hives, eczema or rhinitis. Vital Signs Vital Signs Vital Signs: 08/14/23 20:51 08/14/23 21:07 Temperature 97.6 F L Temperature Source Temporal Pulse Rate 115 H 111 H Respiratory Rate 18 18 Blood Pressure 134/87 H 128/90 H Blood Pressure Mean 102 102 Pulse Ox 99 97 Oxygen Delivery Method Room Air Room Air Weight Weight: 180 lb 3 oz Body Mass Index (BMI) 28.2 Physical Exam Narrative Physical Examination: General: Awake, alert, oriented x 3 and cooperative, seated upright in the ED bed, fatigued, yawning, restless. Skin: Normal color, normal turgor, no icterus, no cyanosis except various tattoos, staged ecchymoses. HEENT: AT/NC, EOMI, PERRLA, dry MM, no carotid bruits or JVD noted. Lungs: CTA bilaterally, moderate effort, mild decrease BL bases, no rales, ronchi or wheezing. Heart: Tachycardic with regular rhythm; no gallop, rub audible. Abdomen: Soft, mild generalized discomfort but no rebound or guarding, ND, hyperactive BS, no appreciated HSM. Extremities: No cyanosis, clubbing, or edema. Neurological: Patient awake, alert, oriented as noted, cognitive function intact; pupils equally reactive to light and accommodation, cranial nerves grossly normal, moving all 4 extremities, no focal deficits, strength moderately globally decreased given withdrawal symptoms, restless. Psychiatric: Affect appears fatigued, restless, no acute evidence of depressive or anxiety feelings but does report a remote history but reports feeling this was a misdiagnosis. Results Lab / Micro Data 08/14/23 21:14 08/14/23 21:14 Labs: Laboratory Results - last 24 hr 08/14/23 21:14: WBC 7.7, RBC 4.98, Hgb 14.5, Hct 42.3, MCV 84.9, MCH 29.1, MCHC 34.3, RDW Std Deviation 39.0, RDW Coeff of Jorge 12.6, Plt Count 286, MPV 8.6, Immature Gran % (Auto) 0.300, Neut % (Auto) 56.6, Lymph % (Auto) 29.3, [place] % (Auto) 8.2, Eos % (Auto) 4.8, Baso % (Auto) 0.8, Absolute Neuts (auto) 4.4, Absolute Lymphs (auto) 2.25, Nucleated RBC % 0, Sodium 142, Potassium 3.6, Chloride 108 H, Carbon Dioxide 27.0, Anion Gap 7, BUN 16, Creatinine 0.95, Estim Creat Clear Calc 98.37, Est GFR (MDRD) Af Amer 109, Est GFR (MDRD) Non-Af 90, BU N/Creatinine Ratio 16.8, Glucose 109 H, Calcium 9.1, Total Bilirubin 0.50, AST 18, ALT 24, Alkaline Phosphatase 83, Total Protein 7.8, Albumin 3.7, Globulin 4.1, Albumin/Globulin Ratio 0.9, Ethyl Alcohol < 3.0 08/14/23 22:00: Urine Opiates Screen NEGATIVE, Urine Methadone Screen NEGATIVE, Ur Barbiturates Screen NEGATIVE, Ur Phencyclidine Scrn NEGATIVE, Ur Amphetamines Screen POSITIVE H, MDMA (Ecstasy) Screen POSITIVE H, U Benzodiazepines Scrn NEGATIVE, Urine Cocaine Screen POSITIVE H, U Cannabinoids Screen NEGATIVE, Ur Drug Screen Comment Assessment & Plan Assessment/Plan (1) Opioid withdrawal: PLAN: Plan The patient is a 48 y/o M w/ PMHx: Prior diagnosis Anxiety/Depression but patient believes it was misdiagnosis in his youth, Tobacco use, Polysubstance use (Prior Heroin/Meth, currently IV Fentanyl 1/2 gm daily, started using again 2020 has been clean on suboxone prior) who presents to the [facility] ED on 08/14/23 w/ noted acute opiate withdrawal. #1. Acute Opiate Withdrawal: Will admit to [facility], routine labs including CBC, CMP, urine for drug screen obtained in the ED, will initiate and continue on protocol with tapering course of Subutex, as needed tylenol, ibuprofen, bowel regimen, gabapentin, Bentyl, Vistaril, methocarbamol, clonidine, PRN nightly trazodone for insomnia, IV fluids, IV antiemetics. Once patient clinically improved and completion of taper nearing will plan consultation with case management for transition to next level of rehabilitation care. #2. Elevated BP without hypertensive diagnosis: BP in the ED with elevated diastolic blood pressure, potentially related with withdrawal, continue to monitor and add regimen if appropriate. #3. Polysubstance Abuse, IVDA: Given ongoing substance abuse with IV drug abuse discussed with patient and will obtain hepatitis panel, HIV and syphilis. #4. Prior diagnoses anxiety/depression: Noted to been diagnosed in his youth, he believes it was a misdiagnosis but given polysubstance abuse certainly could be an underlying diagnosis and encourage continued outpatient evaluation and treatment if appropriate. #5. Tobacco Abuse: Encouraged cessation, inpatient consultation per RT, NR if desired. #6. DVT prophylaxis: Low risk for type of admission. Charges/Coding Visit Charges Inpatient E&M: 89511 Init Hosp L2
[2023-08-14 22:53] VITALS: BP 121/110; PULSE 100; RESP 18; TEMP 36.4; O2SAT 97
[2023-08-14 23:37] VITALS: BMI 28.4
[2023-08-14 23:44] VITALS: BP 133/93; PULSE 84; RESP 18; TEMP 36.6; O2SAT 100
[2023-08-15 06:19] VITALS: BP 110/80; PULSE 73; RESP 18; TEMP 36.6; O2SAT 97
[2023-08-15 08:42] LABS: HIV - WCH Non-Reactive (Nonreactive); Hepatitis B Surface Antibody Reactive; Hepatitis B Surface Antigen Non-Reactive (Nonreactive); Hepatitis C Antibody Non-Reactive (Nonreactive); Syphilis Antibodies Non-reactive
[2023-08-15 11:03] VITALS: BP 129/83; PULSE 72; RESP 18; TEMP 37.1; O2SAT 98
--- NOTE | 2023-08-15 11:44 | PCM.PN.HOSP ---
Reason for Visit Reason for Visit: Diagnoses Opioid use, unspecified with withdrawal (08/14/23) Subjective Subjective Patient admitted yesterday evening for opiate detoxification. Seen at bedside this morning. Patient had not received any doses of Subutex yet when I saw him apparently given concern for other substances noted on his UDS. He did appear fatigued and mildly diaphoretic. Noted that he felt fairly nauseous but did want to try to eat breakfast this morning. He otherwise felt generally achy and somewhat sick. Denies any fevers or chills. No other acute concerns. Objective Data Objective Data Vital Signs: Vital Signs Temp Pulse Resp BP Pulse Ox O2 Del Method 98.7 F 72 18 129/83 H 98 Room Air 08/15/23 11:03 08/15/23 11:08/15/23 11:03 08/15/23 11:03 08/15/23 11:03 08/15/23 11:03 Oxygen Delivery Method Room Air Weight: 82.372 kg Body Mass Index (BMI) 28.4 Lab / Micro Data 08/14/23 21:14 08/14/23 21:14 Labs: Laboratory Results - last 24 hr 08/14/23 21:14: WBC 7.7, RBC 4.98, Hgb 14.5, Hct 42.3, MCV 84.9, MCH 29.1, MCHC 34.3, RDW Std Deviation 39.0, RDW Coeff of Jorge 12.6, Plt Count 286, MPV 8.6, Immature Gran % (Auto) 0.300, Neut % (Auto) 56.6, Lymph % (Auto) 29.3, [place] % (Auto) 8.2, Eos % (Auto) 4.8, Baso % (Auto) 0.8, Absolute Neuts (auto) 4.4, Absolute Lymphs (auto) 2.25, Nucleated RBC % 0, Sodium 142, Potassium 3.6, Chloride 108 H, Carbon Dioxide 27.0, Anion Gap 7, BUN 16, Creatinine 0.95, Estim Creat Clear Calc 98.37, Est GFR (MDRD) Af Amer 109, Est GFR (MDRD) Non-Af 90, BUN/Creatinine Ratio 16.8, Glucose 109 H, Calcium 9.1, Total Bilirubin 0.50, AST 18, ALT 24, Alkaline Phosphatase 83, Total Protein 7.8, Albumin 3.7, Globulin 4.1, Albumin/Globulin Ratio 0.9, Ethyl Alcohol < 3.0 08/14/23 22:00: Urine Opiates Screen NEGATIVE, Urine Methadone Screen NEGATIVE, Ur Barbiturates Screen NEGATIVE, Ur Phencyclidine Scrn NEGATIVE, Ur Amphetamines Screen POSITIVE H, MDMA (Ecstasy) Screen POSITIVE H, U Benzodiazepines Scrn NEGATIVE, Urine Cocaine Screen POSITIVE H, U Cannabinoids Screen NEGATIVE, Ur Drug Screen Comment 08/15/23 06:19: Syphilis Total Ab Non-reactive, Hep Bs Antigen Non-Reactive, Hep Bs Antibody Reactive, Hepatitis C Antibody Non-Reactive, HIV 1&2 Antibody Non-Reactive Physical Exam Const alert and oriented x3 Constitutional Narrative: Middle-age male, sitting up in bed, fatigued and somewhat diaphoretic appearing, otherwise answering questions appropriately and conversing normally. General Appearance: cooperative HEENT normocephalic, head/scalp atraumatic, hearing grossly normal bilaterally and nasal mucous membranes and turbinates normal Eyes PERRL, EOMs intact bilaterally and conjunctivae normal Neck full ROM Chest inspection of chest normal Resp normal respiratory effort, normal air movement, no use of accessory muscles and clear to auscultation bilaterally Cardio regular rate, regular rhythm, no murmurs and peripheral pulses 2+ throughout GI normal to inspection, nondistended, normoactive bowel sounds, soft to palpation, non-tender and non-distended Back/Spine normal ROM Extremity normal to inspection, full ROM and no pedal edema Skin no rashes or lesions noted Neuro moves all extremities and no focal motor deficits Speech: speech normal Psych mental status grossly normal Mood & Affect: anxious Assessment & Plan Assessment/Plan (1) Opioid withdrawal: (2) Opioid dependence: PLAN: Plan Patient is a 48-year-old male who presented to [facility] ED on 08/14/2023 for opiate detoxification. 1. Opiate use disorder with acute withdrawal, polysubstance abuse ? Reported IV fentanyl use daily recently with prior history of heroin and meth abuse. Last used on morning of admission. UDS on admit positive for amphetamines, MDMA, cocaine. Notably negative for opiates but fentanyl does not show up. Suspect patient's fentanyl was being cut with these other drugs. Okay for Subutex taper and other as needed medications per opiate withdrawal order set. Addiction medicine following. 2. Tobacco abuse ? Encouraged cessation. Nicotine patch ordered per patient request. DVT prophylaxis: Lovenox CODE STATUS: Full code, verified Expected disposition: Home, 2 to 3 days Total clinical time spent by myself addressing the patient's medical issues, reviewing all the data, and collaborating with patient's care team: 25 minutes. Charges/Coding Visit Charges Inpatient E&M: 89275 Subs Hosp L1
[2023-08-15] MEDS: hydrOXYzine PAM 25 MG Capsule 50 MG PO (13:43)
[2023-08-15] MEDS: Ibuprofen 600 MG Tablet PO (13:43)
[2023-08-15] MEDS: Gabapentin 300 MG Capsule PO (13:43)
[2023-08-15] MEDS: Buprenorphine HCl 2 MG TAB.SUBL SL ×2 (16:08→22:25)
[2023-08-15 18:00] VITALS: BP 127/81; PULSE 70; RESP 18; TEMP 36.8; O2SAT 98
[2023-08-15 19:36] VITALS: O2SAT 97
[2023-08-15 22:23] VITALS: BP 138/91; PULSE 65; RESP 18; TEMP 36.6; O2SAT 97
[2023-08-16] MEDS: cloNIDine HCl 0.1 MG Tablet PO ×2 (00:03→16:46)
[2023-08-16] MEDS: traZODone 100 MG Tablet PO ×2 (00:03→20:14)
[2023-08-16] MEDS: Gabapentin 300 MG Capsule PO ×2 (00:03→18:38)
[2023-08-16] MEDS: Methocarbamol 750 MG Tablet PO ×3 (00:03→18:38)
[2023-08-16] MEDS: hydrOXYzine PAM 25 MG Capsule 50 MG PO ×4 (00:03→20:13)
[2023-08-16] MEDS: Dicyclomine 10 MG Capsule 20 MG PO ×2 (00:46→18:38)
[2023-08-16] MEDS: Ibuprofen 600 MG Tablet PO ×2 (00:46→23:20)
[2023-08-16 06:12] VITALS: BP 131/91; PULSE 80; RESP 18; TEMP 36.4; O2SAT 96
[2023-08-16 08:01] VITALS: O2SAT 96
--- NOTE | 2023-08-16 09:24 | PCM.PN.HOSP ---
Reason for Visit Reason for Visit: Diagnoses Opioid dependence, uncomplicated (08/14/23) Opioid use, unspecified with withdrawal (08/14/23) Subjective Subjective No acute events overnight. Patient seen in bed this morning. Patient was sleeping on my arrival to the room. He did appear fatigued during our encounter. Patient took 2 doses of Subutex yesterday but notably refused his dose this morning; when asked why he stated he felt like the Subutex caused worsening withdrawal symptoms yesterday. Stated he would not like to take anymore Subutex going forward, would rather like to manage the withdrawal symptoms with the other as needed medications. He reported mild to moderate withdrawal symptoms this morning, slightly improved from yesterday. No other acute concerns this morning. Objective Data Objective Data Vital Signs: Vital Signs Temp Pulse Resp BP Pulse Ox O2 Del Method 97.6 F L 80 18 131/91 H 96 Room Air 08/16/23 06:12 08/16/23 06:12 08/16/23 06:12 08/16/23 06:12 08/16/23 08:01 08/16/23 08:01 Oxygen Delivery Method Room Air Weight: 82.372 kg Body Mass Index (BMI) 28.4 Intake & Output: Intake and Output for Last 24 Hours 08/14/23 08/15/23 08/16/23 23:59 23:59 23:59 Intake Total 1650 / 1650 Balance 1650 / 1650 Lab / Micro Data 08/14/23 21:14 08/14/23 21:14 Physical Exam Const alert and oriented x3 Constitutional Narrative: Middle-age male, lying comfortably in bed, fatigued appearing, otherwise answering questions appropriately and conversing normally. General Appearance: cooperative HEENT normocephalic, head/scalp atraumatic, hearing grossly normal bilaterally and nasal mucous membranes and turbinates normal Eyes PERRL, EOMs intact bilaterally and conjunctivae normal Neck full ROM Chest inspection of chest normal Resp normal respiratory effort, normal air movement, no use of accessory muscles and clear to auscultation bilaterally Cardio regular rate, regular rhythm, no murmurs and peripheral pulses 2+ throughout GI normal to inspection, nondistended, normoactive bowel sounds, soft to palpation, non-tender and non-distended Back/Spine normal ROM Extremity normal to inspection, full ROM and no pedal edema Skin no rashes or lesions noted Neuro moves all extremities and no focal motor deficits Speech: speech normal Psych mental status grossly normal Mood & Affect: anxious Assessment & Plan Assessment/Plan (1) Opioid withdrawal: (2) Opioid dependence: PLAN: Plan Patient is a 48-year-old male who presented to [facility] ED on 08/14/2023 for opiate detoxification. 1. Opiate use disorder with acute withdrawal, polysubstance abuse ? Reported IV fentanyl use daily recently with prior history of heroin and meth abuse. Last used on morning of admission. UDS on admit positive for amphetamines, MDMA, cocaine. Notably negative for opiates but fentanyl does not show up. Suspect patient's fentanyl was being cut with these other drugs. Started on Subutex taper with other as needed medications per opiate withdrawal order set on admission. Took 2 doses of Subutex and felt like this precipitated withdrawal symptoms so he does not want to take this going forward, prefers to manage withdrawal symptoms with other as needed medications which is reasonable. Addiction medicine following. Likely planning for outpatient follow-up with 180 on discharge. 2. Tobacco abuse ? Encouraged cessation. Nicotine patch ordered per patient request. DVT prophylaxis: Lovenox CODE STATUS: Full code, verified Expected disposition: Home, 1 to 2 days Total clinical time spent by myself addressing the patient's medical issues, reviewing all the data, and collaborating with patient's care team: 25 minutes. Charges/Coding Visit Charges Inpatient E&M: 27083 Subs Hosp L1
--- NOTE | 2023-08-16 09:59 | ADDICTION ---
This selling underwriter met with patient for ASAM and discharge planning. Pt. is a 48 year old male, admitted 08/14/23 for fentanyl detox. Reports IV use for the last few years, has been using Opiods for the last 20 years-denied further use of substances. Pt.is lying in bed, appears avoidant-turns away from this selling underwriter multiple times during assessment. Answering yes/no questions-not engaged in conversation. Refused AoD referrals. Verbalizes he plans to contact/follow-up with [facility] for outpatient services. He signed DUSTY for [facility] strategic intelligence officer (Crow Chau). No further plans noted at this time. Charge nurse and hospital liaison notified.
[2023-08-16 11:00] VITALS: BP 109/70; PULSE 65; RESP 12; TEMP 36.8; O2SAT 98
[2023-08-16] MEDS: Enoxaparin 40 MG/0.4 ML Syringe SC (11:03)
[2023-08-16] MEDS: Ondansetron 8 MG Tablet PO (16:46)
[2023-08-16] MEDS: Buprenorphine HCl 2 MG TAB.SUBL SL ×2 (16:47→23:21)
[2023-08-16 16:51] VITALS: BP 133/98; PULSE 83; RESP 12; TEMP 36.5; O2SAT 99
[2023-08-16 20:05] VITALS: BP 104/70; PULSE 94; RESP 16; TEMP 36.8; O2SAT 99
[2023-08-16] MEDS: Acetaminophen 325 MG Tablet 650 MG PO ×2 (20:14→23:21)
[2023-08-16 23:29] VITALS: BP 122/83; PULSE 70; RESP 16; TEMP 36.9; O2SAT 98
[2023-08-17 06:00] VITALS: BP 121/74; PULSE 79; RESP 20; TEMP 36.7; O2SAT 96
[2023-08-17] MEDS: Methocarbamol 750 MG Tablet PO (06:11)
[2023-08-17] MEDS: hydrOXYzine PAM 25 MG Capsule 50 MG PO ×2 (06:11→12:16)
[2023-08-17] MEDS: Dicyclomine 10 MG Capsule 20 MG PO (06:11)
[2023-08-17] MEDS: Buprenorphine HCl 2 MG TAB.SUBL SL (06:12)
[2023-08-17 10:00] VITALS: O2SAT 96
--- NOTE | 2023-08-17 11:14 | PN.HOSP_ITS ---
Reason for Visit Reason for Visit: Diagnoses Opioid dependence, uncomplicated (08/14/23) Opioid use, unspecified with withdrawal (08/14/23) Subjective Subjective No acute events overnight. Patient seen at bedside this morning. Patient was sleeping on arrival to the room. Reported feeling fatigued but withdrawal symptoms were improved today. Did start taking Subutex again yesterday evening with some relief of withdrawal symptoms. No other acute concerns today. Objective Data Objective Data Vital Signs: Vital Signs Temp Pulse Resp BP Pulse Ox O2 Del Method 98.1 F 79 20 H 121/74 H 96 Room Air 08/17/23 06:00 08/17/23 06:00 08/17/23 06:00 08/17/23 06:00 08/17/23 06:00 08/17/23 06:00 Oxygen Delivery Method Room Air Weight: 82.372 kg Body Mass Index (BMI) 28.4 Intake & Output: Intake and Output for Last 24 Hours 08/15/23 08/16/23 08/17/23 23:59 23:59 23:59 Intake Total 1650 / 1650 500 / 500 Balance 1650 / 1650 500 / 500 Lab / Micro Data 08/14/23 21:14 08/14/23 21:14 Physical Exam Const alert and oriented x3 Constitutional Narrative: Middle-age male, lying comfortably in bed, fatigued appearing, otherwise answering questions appropriately and conversing normally. General Appearance: cooperative HEENT normocephalic, head/scalp atraumatic, hearing grossly normal bilaterally and nasal mucous membranes and turbinates normal Eyes PERRL, EOMs intact bilaterally and conjunctivae normal Neck full ROM Chest inspection of chest normal Resp normal respiratory effort, normal air movement, no use of accessory muscles and clear to auscultation bilaterally Cardio regular rate, regular rhythm, no murmurs and peripheral pulses 2+ throughout GI normal to inspection, nondistended, normoactive bowel sounds, soft to palpation, non-tender and non-distended Back/Spine normal ROM Extremity normal to inspection, full ROM and no pedal edema Skin no rashes or lesions noted Neuro moves all extremities and no focal motor deficits Speech: speech normal Psych mental status grossly normal Mood & Affect: anxious Assessment & Plan Assessment/Plan (1) Opioid withdrawal: (2) Opioid dependence: PLAN: Plan Patient is a 48-year-old male who presented to [facility] ED on 08/14/2023 for opiate detoxification. 1. Opiate use disorder with acute withdrawal, polysubstance abuse Reported IV fentanyl use daily recently with prior history of heroin and meth abuse. Last used on morning of admission. UDS on admit positive for amphetamines, MDMA, cocaine. Notably negative for opiates but fentanyl does not show up. Suspect patient's fentanyl was being cut with these other drugs. ? Continue Subutex taper with other as needed medications per opiate withdrawal order set. Addiction medicine following. Likely stable for home tomorrow with outpatient follow up with [facility] on discharge. 2. Tobacco abuse ? Encouraged cessation. Nicotine patch ordered per patient request. DVT prophylaxis: Lovenox CODE STATUS: Full code, verified Expected disposition: Home, 1 to 2 days Total clinical time spent by myself addressing the patient's medical issues, reviewing all the data, and collaborating with patient's care team: 25 minutes. Charges/Coding Visit Charges Inpatient E&M: [address] [facility] Hosp L1
[2023-08-17 12:00] VITALS: BP 127/83; PULSE 71; RESP 14; TEMP 36.2; O2SAT 98
[2023-08-17] MEDS: Ondansetron 8 MG Tablet PO (12:16)
[2023-08-17] MEDS: Enoxaparin 40 MG/0.4 ML Syringe SC (12:16)
--- NOTE | 2023-08-17 14:35 | PCM.DC ---
Discharge Instructions Diet Discharge Diet: No restrictions Activity Discharge Activity: No Restrictions Follow Up Care Test Results: Test results from this visit will be discussed in further detail at your follow-up appointment, if applicable. Discharge Plan Admission Admit Date/Time: 08/14/23 22:28 Primary Reason for Your Visit: opiate detox Attending Provider: Anthony Villanueva Primary Care Provider: Care Physician,No Primary Consulting Providers: Carmita Spann Discharge Orders/Prescriptions Prescriptions: No Action NK Referrals / Follow Up: Care Physician,No Primary [Primary Care Provider] - Disposition Disposition (needs filled in before D/C Order can be placed): Home, Self Care
--- NOTE | 2023-08-17 14:36 | DS.PCM_ITS ---
Providers Date of Admission: 08/14/23 Date of Discharge: 08/17/23 Primary Care Physician: No Primary Care Phys Reason For Visit: ACUTE OPIATE WITHDRAWL Diagnosis Discharge Diagnosis (1) Opioid withdrawal: Status: Acute Code(s): F11.93 - Opioid use, unspecified with withdrawal (2) Opioid dependence: Status: Acute Code(s): F11.20 - Opioid dependence, uncomplicated Medications at Discharge Home Medications NK 08/15/21 Hospital Course Operations None Procedures None Summary of Care Provided Minutes Spent on Discharge: 25 Hospital Course: Patient is a 48-year-old male who presented to [facility] ED on 08/14/2023 for opiate detoxification. Hospital course as noted below. Patient discharged home in stable condition on 08/16. 1. Opiate use disorder with acute withdrawal, polysubstance abuse Reported IV fentanyl use daily recently with prior history of heroin and meth abuse. Last used on morning of admission. UDS on admit positive for amphetamines, MDMA, cocaine. Notably negative for opiates but fentanyl does not show up. Suspect patient's fentanyl was being cut with these other drugs. ? Treated with Subutex taper with other as needed medications per opiate withdrawal order set during hospitalization with good symptom control. Addiction medicine followed. Discharged home with plan for outpatient follow-up with [facility]. 2. Tobacco abuse ? Encouraged cessation. Nicotine patch provided per patient request while inpatient. Total clinical time spent by myself addressing the patient's medical issues, reviewing all the data, and collaborating with patient's care team: 25 minutes. Physical Exam Const alert and oriented x3 Constitutional Narrative: Middle-age male, lying comfortably in bed, fatigued appearing, otherwise answering questions appropriately and conversing normally. General Appearance: cooperative HEENT normocephalic, head/scalp atraumatic, hearing grossly normal bilaterally and nasal mucous membranes and turbinates normal Eyes PERRL, EOMs intact bilaterally and conjunctivae normal Neck full ROM Chest inspection of chest normal Resp normal respiratory effort, normal air movement, no use of accessory muscles and clear to auscultation bilaterally Cardio regular rate, regular rhythm, no murmurs and peripheral pulses 2+ throughout GI normal to inspection, nondistended, normoactive bowel sounds, soft to palpation, non-tender and non-distended Back/Spine normal ROM Extremity normal to inspection, full ROM and no pedal edema Skin no rashes or lesions noted Neuro moves all extremities and no focal motor deficits Speech: speech normal Psych mental status grossly normal Mood & Affect: anxious Weight / BMI Weight Weight: 82.372 kg Body Mass Index (BMI) 28.4 ABG / Lab / Microbiology Data 08/14/23 21:14 08/14/23 21:14 D/C Instructions Discharge Diet: No restrictions Meaningful Use Info Meaningful Use Meaningful Use Diagnoses (Choose all that apply): None applicable Ischemic Stroke Statin Dosing Therapy Reference: STATIN DOSE THERAPY REFERENCE: * Patients > 75 years receive moderate or high dose statin therapy. * Patients 75 years or YOUNGER should receive HIGH intensity statin dose unless contraindicated. You will be required to document reason for non-treatment if statin daily dose does not meet guidelines. HIGH DOSE STATIN THERAPY DAILY Atorvastatin > than or = to 40 mg Rosuvastatin > than or = to 20 mg Amlodipine + Atorvastatin > than or = to 2.5/40 mg Ezetimibe + Simvastatin 10/80 mg Simvastatin 80mg Discharge Plan Admission Admit Date/Time: 08/14/23 22:28 Primary Reason for Your Visit: opiate detox Attending Provider: Anthony Villanueva Primary Care Provider: Care Physician,No Primary Consulting Providers: Carmita Spann Discharge Orders/Prescriptions Prescriptions: No Action NK Referrals / Follow Up: Care Physician,No Primary [Primary Care Provider] - Disposition Disposition (needs filled in before D/C Order can be placed): Home, Self Care Charges/Coding Visit Charges Inpatient E&M: 69658 Disch Hosp
== END 2023-08-17 15:23 | disposition home or self-care (01) | DRG 897 ==
LOC: ED 21:27 → MS3 22:53
PROVIDERS: Admitting Provider Family Medicine; Emergency Provider Emergency Medicine; Visit Provider Hospitalist
DX: F11.23 Opioid dependence with withdrawal (principal); F14.19 Cocaine abuse with unspecified cocaine-induced disorder; F15.10 Other stimulant abuse, uncomplicated; F16.10 Hallucinogen abuse, uncomplicated; F17.210 Nicotine dependence, cigarettes, uncomplicated; R03.0 Elevated blood-pressure reading, without diagnosis of hypertension
CPT/HCPCS: 36415; 80053; 80307; 82077; 85025; 86703; 86706; 86780; 86803; 87340; 96372; 99221; 99283; G0378

== ENCOUNTER 2024-12-31 17:09 | Emergency (ER) | payer MEDICAID, SELFPAY ==
[2024-12-31 17:11] VITALS: BP 131/94; PULSE 109; RESP 18; TEMP 37; O2SAT 97; BMI 36.1
--- OUTSIDE RECORDS SUMMARY | 2024-12-31 19:08 | XMS RPT_ITS | CCD ---
Author Organization [facility] Care Team Providers Care Issue Clerk Name Role Phone PROVIDER, UNKNOWN Unavailable Unavailable Marisa, PCP Unavailable Unavailable Almaz Cagle Unavailable Unavailable ADRIENNE RICHEY (PA) Unavailable Unavailable TOM MADRID Unavailable Unavailable Care Physician, No Primary Primary Care Provider Unavailable Dr. Davonte Cole Emergency Provider Dr. Carmita Spann Admit Provider [phone] Carmita Spann Other Provider [phone] Anthony Villanueva Attending Provider [phone] Dr. Anthony Villanueva Other Provider [phone] Carmita Spann Consulting Unavailable Anthony Villanueva Attending Unavailable Carmita Spann Admitting Unavailable Care Physician, No Primary Primary Care Unava ilable Anthony Villanueva Consulting Unavailable Carmita Spann Attending Unavailable Anthony Villanueva Attending Unavailable Carmita Spann Consulting Unavailable Care Physician, No Primary Primary Care Unava ilable Carmita Spann Admitting Unavailable Problems Active Problems Problem Classification Problem Date Documented Da te Episodic/Chronic Anxiety disorders (2 sources) Anxiety disorder; Translations: [Anxiety disorder, unspecified] 11-11-2017 Chronic Gastrointestinal hemorrhage (2 sources) Gastrointestinal hemorrhage; Translations: [Gastrointestinal hemorrhage, unspecified] 11-11-2017 Episodic Other gastrointestinal disorders (2 sources) Irritable bowel syndrome; Translations: [Irritable bowel syndrome without diarrhea] 08-14-2023 Chronic Other lower respiratory disease (2 sources) Hiccoughs; Translations: [Hiccough] 08-24-2021 Episodic Residual codes; unclassified (2 sources) Tobacco use and exposure - finding; Translations: [Tobacco use] 08-14-2023 Episodic Substance-related disorders (6 sources) Opioid dependence; Translations: [Opioid dependence, uncomplicated] Onset: 4 08-14-2023 Chronic Past or Other Problems Problem Classification Problem Date Documented Da te Episodic/Chronic Substance-related disorders (9 sources) Opioid withdrawal; Translations: [Opioid use, unspecified with withdrawal] Onset: 08-21-2023 08-14-2023 Episodic Results Test Name Value Interpretation Reference Range Facility Discharge Instructionon Discharge Instruction [facility] Medical Records Department [address] [place] [address] Instructions for Home/Discharge Instructions 08/17/23 1435 MR#: [id number] Acct: [id number] Name: ALMAZ ESTES Rep #: [id number] : 1975 48 From: Anthony Villanueva DO PCP: Care Physician,No Primary Status:ADM IN Discharge Instructions Diet Discharge Diet: No restrictions Activity Discharge Activity: No Restrictions Follow Up Care Test Results: Test results from this visit will be discussed in further detail at your follow-up appointment, if applicable. Discharge Plan Admission Admit Date/Time: 08/14/23 22:28 Primary Reason for Your Visit: opiate detox Attending Provider: Anthony Villanueva Primary Care Provider: Care Physician,No Primary Consulting Providers: Carmita Spann Discharge Orders/Prescriptions Prescriptions: No Action NK Referrals / Follow Up: Care Physician,No Primary [Primary Care Provider] - Disposition Disposition (needs filled in before D/C Order can be placed): Home, Self Care 08/17/231435 Anthony Villanueva DO CC: Dr. Carmita Spann MD; No Primary Care Physician Signed Normal [facility] HIV - WCHon 08-15-2023 HIV Non-Reactive Normal Nonreactive [facility] Comment on above: Order Comment: Reaso n for Exam: substance abuse Reason for Exam: Hepatitis Screen Performed By: #### L 3890.6200, L3890.6005, L3890.6300, L509.8000, L3890.6100 #### [facility] [address] [place], [address] HIV 1 and HIV-2 antibody ass ay with HIV-1 p24 antigen detectionOrdered By: Carmita Spann on 08-15-2023 HIV 1+2 Ab+HIV1 p24 Ag IA Ql Non-Reactive Nonreactive [facility] Hepatitis B Surface Antibody on 08-15-2023 HEP B Surf Ab Reactive Normal [facility] Comment on above: Order Comment: Reaso n for Exam: substance abuse Reason for Exam: Hepatitis Screen Result Comment: Non Reactive: Inconsistent with immunity less than <10 mIU/mL Reactive: Consistent with immunity greater than or equal to 10 mIU/mL Performed By: #### L 3890.6200, L3890.6005, L3890.6300, L509.8000, L3890.6100 #### [facility] [address] [place], [place], [id number] Hepatitis B Surface Antigeno n 08-15-2023 HEP B Surf Ag Non-Reactive Normal Nonreactive [facility] Comment on above: Order Comment: Reaso n for Exam: substance abuse Reason for Exam: Hepatitis Screen Performed By: #### L 3890.6200, L3890.6005, L3890.6300, L509.8000, L3890.6100 #### [facility] [address] [place], [place], [id number] Hepatitis C Antibodyon 08-14 Hepatitis C AB Non-Reactive Normal Nonreactive [facility] Comment on above: Order Comment: Reaso n for Exam: substance abuse Reason for Exam: Hepatitis Screen Result Comment: Non Reactive: < 0.8 Equivocal: >/= 0.8 to < 1.0 Reactive: >/= 1.0 The CDC requires that a reactive/equivocal HCV antibody result be sent out for confirmation. HCV Quant by PCR testing. Performed By: #### L 3890.6200, L3890.6005, L3890.6300, L509.8000, L3890.6100 #### [facility] [address] [place], [place], [address] L509.8000on 08-15-2023 Syphilis Abs Non-Reactive Normal [facility] Comment on above: Order Comment: Reaso n for Exam: substance abuse Reason for Exam: Hepatitis Screen Performed By: #### L 3890.6200, L3890.6005, L3890.6300, L509.8000, L3890.6100 #### [facility] [address] [place], [place], [id number] No Panel InformationOrdered By: Carmita Spann on 08-15-2023 Hepatitis B Surface Antigen Non-Reactive Nonreactive [facility] Hepatitis C Antibody Non-Reactive Nonreactive [facility] Comment on above: Non Reactive: < 0.8 Equivocal: >/= 0.8 to < 1.0 Reactive: >/= 1.0The [facility] requires that a reactive/equivocal HCV antibody result be sent out for confirmation. HCV Quant by PCR testing. Serum Treponema species anti body detectionOrdered By: Carmita Spann on 08-15-2023 Treponema sp Ab Ql (S) Non-Reactive [facility] Serum hepatitis B virus surf rudy antibody IgG detectionOrdered By: Carmita Spann on 08-15-2023 HBV surface IgG Ql (S) Reactive [facility] Comment on above: Non Reactive: Incons istent with immunity less than <10 mIU/mL Reactive: Consistent with immunity greater than or equal to 10 mIU/mL Absolute lymphocyte countOrd ered By: Davonte Cole on 08-14-2023 Lymphocytes Auto (Unsp spec) [#/Vol] 2.25 10*3/uL 0.83-4.51 [facility] Alcohol, Blood (Medical)-Ser umon 08-14-2023 SERUM ETOH < 3.0 Normal [facility] Comment on above: Result Comment: The serum:whole blood ethanol ratio is approximately 1.14 and varies slightly with hematocrit. Medical Alcohol reference interval and critical value in non-tolerant individuals; 50 - 100 Impairment 100 Intoxication 100 - 250 Severe Poisoning 250 - 400 Deep/possible fatal coma Performed By: #### L 505.5000, L500.4050, L501.9100, L100.0100 #### [facility] [address] [place], [place], [address] Automated lymphocyte count a s percentage of total leukocytesOrdered By: Davonte Cole on 08-14-2023 Lymphocytes/100 WBC Auto (Unsp spec) 29.3 % 19-41 [facility] Basophil percentageOrdered B y: Davonte Cole on 08-14-2023 Basophils/100 WBC (Bld) 0.8 % 0-1 [facility] Bilirubin [Mass/Vol] 0.50 mg/dL 0.20-1.00 [facility] Comment on above: For patients on eltr ombopag therapy, use of Dimension [place] TBIL is not recommended. Chloride [Moles/Vol] 108 mmol/L 98-107 [facility] Eosinophils/100 WBC (Bld) 4.8 % 0-5 [facility] Glucose [Mass/Vol] 109 mg/dL 74-106 [facility] Comment on above: Fasting Glucose resu lt from 100 to 125 mg/dL suggests IMPAIRED HOMEOSTASIS per A.D.A. criteria. Hemoglobin (Bld) [Mass/Vol] 14.5 g/dL 13.0-16.5 [facility] Monocytes/100 WBC (Bld) 8.2 % 0-10 [facility] Neutrophils (Bld) [#/Vol] 4.4 10*3/uL 2.0-7.7 [facility] Neutrophils/100 WBC (Bld) 56.6 % 47-70 [facility] Potassium [Moles/Vol] 3.6 mmol/L 3.5-5.1 [facility] Protein [Mass/Vol] 7.8 g/dL 6.4-8.2 [facility] Sodium [Moles/Vol] 142 mmol/L 136-145 [facility] WBC (Bld) [#/Vol] 7.7 10*3/uL 4.4-11.0 [facility] CBC W/Diff, Automatedon 05-0 Absolute Lymph 2.25 X10 3/uL Normal 0.83-4.51 [facility] Comment on above: Performed By: #### L 505.5000, L500.4050, L501.9100, L100.0100 #### [facility] [address] [place], [address] Absolute Neut 4.4 X10 3/uL Normal 2.0-7.7 [facility] Comment on above: Performed By: #### L 505.5000, L500.4050, L501.9100, L100.0100 #### [facility] [address] [place], [address] Basophils/100 WBC (Bld) 0.8 % Normal 0-1 [facility] Comment on above: Performed By: #### L 505.5000, L500.4050, L501.9100, L100.0100 #### [facility] [address] [place], [address] Eosinophils/100 WBC (Bld) 4.8 % Normal 0-5 [facility] Comment on above: Performed By: #### L 505.5000, L500.4050, L501.9100, L100.0100 #### [facility] [address] [place], [address] Erythrocyte distribution width (RBC) [Ratio] 12.6 % Normal 11.6-14.6 [facility] Comment on above: Performed By: #### L 505.5000, L500.4050, L501.9100, L100.0100 #### [facility] [address] [place], [address] Hematocrit (Bld) [Volume fraction] 42.3 % Normal 40-54 [facility] Comment on above: Performed By: #### L 505.5000, L500.4050, L501.9100, L100.0100 #### [facility] [address] [place], [address] Hemoglobin (Bld) [Mass/Vol] 14.5 g/dL Normal 13.0-16.5 [facility] Comment on above: Performed By: #### L 505.5000, L500.4050, L501.9100, L100.0100 #### [facility] [address] [place], [address] IG% 0.300 Normal 0.0-0.9 [facility] Comment on above: Result Comment: IG% - Immature Granulocytes (promyelocytes, myelocytes and metamyelocytes) > 1% indicates that a LEFT SHIFT is Present. Performed By: #### L 505.5000, L500.4050, L501.9100, L100.0100 #### [facility] [address] [place], [address] Lymphocytes/100 WBC (Bld) 29.3 % Normal 19-41 [facility] Comment on above: Performed By: #### L 505.5000, L500.4050, L501.9100, L100.0100 #### [facility] [address] [place], [address] MCH (RBC) [Entitic mass] 29.1 pg Normal 27.0-32.0 [facility] Comment on above: Performed By: #### L 505.5000, L500.4050, L501.9100, L100.0100 #### [facility] [address] [place], [address] MCHC (RBC) [Mass/Vol] 34.3 g/dL Normal 32-36 [facility] Comment on above: Performed By: #### L 505.5000, L500.4050, L501.9100, L100.0100 #### [facility] [address] [place], [address] MCV (RBC) [Entitic vol] 84.9 fL Normal 80-94 [facility] Comment on above: Performed By: #### L 505.5000, L500.4050, L501.9100, L100.0100 #### [facility] [address] [place], [address] Monocytes/100 WBC (Bld) 8.2 % Normal 0-10 [facility] Comment on above: Performed By: #### L 505.5000, L500.4050, L501.9100, L100.0100 #### [facility] [address] [place], [address] Neutrophils/100 WBC (Bld) 56.6 % Normal 47-70 [facility] Comment on above: Performed By: #### L 505.5000, L500.4050, L501.9100, L100.0100 #### [facility] [address] [place], [address] Nucleated RBC (Bld) [#/Vol] 0 10*3/uL Normal 0-5 [facility] Comment on above: Performed By: #### L 505.5000, L500.4050, L501.9100, L100.0100 #### [facility] [address] [place], [address] Platelet mean volume (Bld) [Entitic vol] 8.6 fL Normal 6.2-12.0 [facility] Comment on above: Performed By: #### L 505.5000, L500.4050, L501.9100, L100.0100 #### [facility] [address] [place], [address] Platelets (Bld) [#/Vol] 286 10*3/uL Normal 150-450 [facility] Comment on above: Performed By: #### L 505.5000, L500.4050, L501.9100, L100.0100 #### [facility] [address] [place], [address] RBC (Bld) [#/Vol] 4.98 10*6/uL Normal 4.6-6.2 [facility] Comment on above: Performed By: #### L 505.5000, L500.4050, L501.9100, L100.0100 #### [facility] [address] [place], [address] RDW SD 39.0 fl Normal 35.1-43.9 [facility] Comment on above: Performed By: #### L 505.5000, L500.4050, L501.9100, L100.0100 #### [facility] [address] [place], [address] WBC (Bld) [#/Vol] 7.7 10*3/uL Normal 4.4-11.0 [facility] Comment on above: Performed By: #### L 505.5000, L500.4050, L501.9100, L100.0100 #### [facility] [address] [place], [address] Comprehensive Metabolic Prof ilon 08-14-2023 Albumin [Mass/Vol] 3.7 g/dL Normal 3.2-5.0 [facility] Comment on above: Performed By: #### L 505.5000, L500.4050, L501.9100, L100.0100 ####[facility] [address] [place], [address] Albumin/Globulin [Mass ratio] 0.9 {ratio} Normal 0.9-2.4 [facility] Comment on above: Performed By: #### L 505.5000, L500.4050, L501.9100, L100.0100 ####[facility] [address] [place], [address] ALK P 83 U/L Normal 45-117 [facility] Comment on above: Performed By: #### L 505.5000, L500.4050, L501.9100, L100.0100 ####[facility] [address] [place], [address] ALT [Catalytic activity/Vol] 24 U/L Normal 16-61 [facility] Comment on above: Performed By: #### L 505.5000, L500.4050, L501.9100, L100.0100 ####[facility] [address] [place], [address] AST [Catalytic activity/Vol] 18 U/L Normal 15-37 [facility] Comment on above: Performed By: #### L 505.5000, L500.4050, L501.9100, L100.0100 ####[facility] [address] [place], [address] Bilirubin [Mass/Vol] 0.50 mg/dL Normal 0.20-1.00 [facility] Comment on above: Result Comment: For patients on eltrombopag therapy, use of Dimension [place] TBIL is not recommended. Performed By: #### L 505.5000, L500.4050, L501.9100, L100.0100 ####[facility] [address] [place], [address] BUN/CRE 16.8 RATIO Normal 10-20 [facility] Comment on above: Performed By: #### L 505.5000, L500.4050, L501.9100, L100.0100 ####[facility] [address] [place], [address] CA,Total 9.1 mg/dL Normal 8.5-10.1 [facility] Comment on above: Performed By: #### L 505.5000, L500.4050, L501.9100, L100.0100 ####[facility] [address] [place], [address] Chloride [Moles/Vol] 108 mmol/L High 98-107 [facility] Comment on above: Performed By: #### L 505.5000, L500.4050, L501.9100, L100.0100 ####[facility] [address] [place], [address] CO2 [Moles/Vol] 27.0 mmol/L Normal 21.0-32.0 [facility] Comment on above: Performed By: #### L 505.5000, L500.4050, L501.9100, L100.0100 ####[facility] [address] [place], [address] Creatinine [Mass/Vol] 0.95 mg/dL Normal 0.70-1.30 [facility] Comment on above: Result Comment: The validity of the calculated GFR GFRAA in patients over 70 years has not been determined. Clinical correlation is essential. Performed By: #### L 505.5000, L500.4050, L501.9100, L100.0100 ####[facility] [address] [place], [address] ECRCL 98.37 ml/min Normal [facility] Comment on above: Performed By: #### L 505.5000, L500.4050, L501.9100, L100.0100 ####[facility] [address] [place], [address] EST GFR - AA 109 mL/min Normal >60 [facility] Comment on above: Result Comment: Afri can Swazi GFR Calc Performed By: #### L 505.5000, L500.4050, L501.9100, L100.0100 ####[facility] [address] [place], [address] GAP 7 Normal 5-15 [facility] Comment on above: Performed By: #### L 505.5000, L500.4050, L501.9100, L100.0100 ####[facility] [address] [place], [address] GFR/1.73 sq M.predicted among non-blacks MDRD (S/P/Bld) [Vol rate/Area] 90 mL/min/{1.73_m2} Normal >60 [facility] Comment on above: Result Comment: Non- GFR Calc Performed By: #### L 505.5000, L500.4050, L501.9100, L100.0100 ####[facility] [address] [place], [address] Globulin (S) [Mass/Vol] 4.1 g/dL Normal 2.2-4.2 [facility] Comment on above: Performed By: #### L 505.5000, L500.4050, L501.9100, L100.0100 ####[facility] [address] [place], [address] Glucose [Mass/Vol] 109 mg/dL High 74-106 [facility] Comment on above: Result Comment: Fast ing Glucose result from 100 to 125 mg/dL suggests IMPAIRED HOMEOSTASIS per A.D.A. criteria. Performed By: #### L 505.5000, L500.4050, L501.9100, L100.0100 ####[facility] [address] [place], [address] Potassium [Moles/Vol] 3.6 mmol/L Normal 3.5-5.1 [facility] Comment on above: Performed By: #### L 505.5000, L500.4050, L501.9100, L100.0100 ####[facility] [address] [place], [address] Sodium [Moles/Vol] 142 mmol/L Normal 136-145 [facility] Comment on above: Performed By: #### L 505.5000, L500.4050, L501.9100, L100.0100 ####[facility] [address] [place], [address] T PROT 7.8 g/dL Normal 6.4-8.2 [facility] Comment on above: Performed By: #### L 505.5000, L500.4050, L501.9100, L100.0100 ####[facility] [address] [place], [address] Urea nitrogen [Mass/Vol] 16 mg/dL Normal 7-18 [facility] Comment on above: Performed By: #### L 505.5000, L500.4050, L501.9100, L100.0100 ####[facility] [address] [place], [address] Determination of erythrocyte mean corpuscular volume (MCV)Ordered By: Davonte Cole on 08-14-2023 MCV (RBC) [Entitic vol] 84.9 fL 80-94 [facility] Emergency Department Summary on 08-14-2023 Emergency Department Summary [facility] Medical Records Department [address] [place] [address] Emergency Department Summary 08/14/23 MR#: [id number] Acct: [id number] Name: ALMAZ ESTES Rep #: [id number] : 1975 48 From: Davonte [place] PCP: Care Physician,No Primary Status:ADM IN Location: [place] [address] HPI History of Present Illness Chief Complaint: Substance Abuse Informant: patient Narrative Narrative: Presents requesting detox from fentanyl. Has been using this for years. Relapse in 2019 uses almost daily multiple times a day. Last use this morning. Will have withdrawal symptoms with cramps and sweats. Currently denies any other symptoms. 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 His last rehab was 2017. Denies alcohol denies any other recreational drugs. He is IV drug user and denies any serious infections in the past. Prior similar symptoms: Yes PFSH PFSH Medical History Anxiety and depression Irritable bowel syndrome IV drug abuse Polysubstance abuse Tobacco use Home Medications NK 08/15/21 [History Last Taken Unknown] Allergy/AdvReac Type Severity Reaction Status Date / Time No Known Allergies Allergy Verified 08/14/23 20:52 Family History (Updated 08/14/23 @ 22:[address] Carmita Spann MD) Mother Rheumatoid arthritis Diabetes Father CAD (coronary artery disease) Heart disease Hypertension Myocardial infarction Surgical History History of dental surgery Social History (Updated 08/14/23 @ 22:[address] Carmita Spann MD) household members: family Smoking Status: Current every day smoker tobacco type: cigarettes Smoking packs per day: 1 Smoking cigarettes per day: 20.0 alcohol intake: former details: Used to remotely drink more heavy, currently rare intake. substance use type: heroin, opiates, IV drugs and methamphetamine ROS ROS ED Constitutional Constitutional ED: Denies chills, fever(s) or sweats Eyes Eyes: Denies change in vision ENT ENT ED: Denies dysphagia or sore throat Cardiovascular Cardiovascular: Denies chest pain, leg edema, palpitations or racing heartbeat Respiratory/Chest Respiratory/Chest: Denies cough, dyspnea or dyspnea on exertion Gastrointestinal Gastrointestinal: Denies abdominal pain, diarrhea, nausea or vomiting Genitourinary Genitourinary ED: Denies dysuria, hematuria or urinary frequency Musculoskeletal Musculoskeletal: Denies back pain, extremity pain or neck pain Integumentary Denies rash or wounds Neurologic Neurologic: Denies headache(s), paresthesias or weakness EXAM Physical Exam Const Vital Signs: 08/14/23 20:51 08/14/23 21:07 Temperature 97.6 F L Temperature Source Temporal Pulse Rate 115 H 111 H Respiratory Rate 18 18 Blood Pressure 134/87 H 128/90 H Blood Pressure Mean 102 102 Pulse Ox 99 97 Oxygen Delivery Method Room Air Room Air Positive well nourished and well developed General Appearance ED: well developed and NAD HEENT Reports moist mucous membranes normocephalic and atraumatic Eyes PERRL, EOMs intact bilaterally and conjunctivae normal General Eye ED: Yes normal appearance of both eyes Neck no lymphadenopathy and supple General: Negative for tenderness Chest Wall Chest: Negative for tenderness Resp normal respiratory effort and normal air movement Effort and Inspection: symmetric chest movement; Negative for respiratory distress Cardio regular rhythm and no murmurs Rate: tachycardic Peripheral Pulses: pulses 2+ throughout GI normal to inspection, nondistended, normoactive bowel sounds and non-tender Palpation: Negative for guarding or rebound tenderness present Back/Spine no CVA tenderness and no thoracic nor lumbar tenderness Extremity normal to inspection General Extremety ED: Negative for edema or tenderness General Extremity: Negative for edema Neuro oriented x3 and no sensory deficits noted Sensorium / Orientation: awake and alert Skin Skin Narrative: Multiple puncture IV sticks right forearm, no surrounding erythema or drainage. MDM MDM MDM Narrative Medical decision making narrative: Interventions / MDM: Differential diagnosis: Opioid dependence, opiate withdrawal, IV drug user Diagnosis considered but do not suspect: N/A My EKG interpretation: N/A Imaging independently reviewed and interpreted by myself: N/A External documents reviewed: N/A Test considered but not ordered:N/A ED course: Patient nontoxic no active symptoms. No infections from IV punctures. Medical labs will be obtained. Will discuss with hospitalist for admission. Patient labs are stable alcohol negative. His talk screen was pending. I discussed with hospitalist Dr. Spann for admission. A (more content not included)... Normal [facility] Erythrocyte distribution wid th ratioOrdered By: Davonte Kelsey on 08-14-2023 Erythrocyte distribution width (RBC) [Ratio] 12.6 % 11.6-14.6 [facility] Erythrocyte distribution wid th standard deviationOrdered By: Davonte Cole on 08-14-2023 Erythrocyte distribution width (RBC) [Entitic vol] 39.0 fL 35.1-43.9 [facility] H AND P Exam - Hospitaliston 08-14-2023 H&P Exam - Hospitalist [facility] Medical Records Department [address] [place] [address] H P Exam - Hospitalist 08/14/232226 MR#: [id number] Acct: [id number] Name: ALMAZ ESTES Rep #: [id number] : 1975 48 From: Carmita Spann MD PCP: Care Physician,No Primary Status:ADM IN Location: [facility] [id number] HPI - General General Date of Admission: 08/14/23 Date of Service: 08/14/23 Chief Complaint: Acute Opiate Withdrawal HPI Narrative The patient is a 48 y/o M w/ PMHx: Prior diagnosis Anxiety/Depression but patient believes it was misdiagnosis in his youth, Tobacco use, Polysubstance use (Prior Heroin/Meth, currently IV Fentanyl 1/2 gm daily, started using again 2020 has been clean on suboxone prior) who presents to the [facility] ED on 08/14/23 w/ noted acute opiate withdrawal onset starting this evening following last dose of Fentanyl at 11 am-noon on day of presentation with abdominal cramping, generalized body aches and pains, rhinorrhea, fatigue, restless leg, mild diaphoresis. Patient interested in attaining clean status. Workup in the ED included T97.6, heart rate 115, BP 134/87, respiratory rate 18, 99% on room air, CBC with WBC 7.7, hemoglobin 14.5, platelet 286 without marked shift, CMP with chloride 108, glucose 109 otherwise unremarkable, UDS with positive amphetamine, MDMA, cocaine, ethyl alcohol less than 3. [facility] Medical History Anxiety and depression Irritable bowel syndrome IV drug abuse Polysubstance abuse Tobacco use Home Medications NK 08/15/21 [History Last Taken Unknown] Allergy/AdvReac Type Severity Reaction Status Date / Time No Known Allergies Allergy Verified 08/14/23 20:52 Family History (Updated 08/14/23 @ 22:[address] Carmita Spann MD) Mother Rheumatoid arthritis Diabetes Father CAD (coronary artery disease) Heart disease Hypertension Myocardial infarction Surgical History (Updated 08/14/23 @ 22:[address] Carmita Spann MD) History of dental surgery Social History (Updated 08/14/23 @ 22:[address] Carmita Spann MD) household members: family Smoking Status: Current every day smoker tobacco type: cigarettes Smoking packs per day: 1 Smoking cigarettes per day: 20.0 alcohol intake: former details: Used to remotely drink more heavy, currently rare intake. substance use type: heroin, opiates, IV drugs and methamphetamine ROS ROS Narrative Admission Review of Systems: CONSTITUTIONAL: No weight loss, fever, chills, + weakness or fatigue. HEENT: + Rhinorrhea, congestion. Eyes: No visual loss, blurred vision, double vision or yellow sclerae. Ears, Nose, Throat: No hearing loss, sneezing. SKIN: No rash or itching, lesions, wounds. CARDIOVASCULAR: No chest pain, chest pressure or chest discomfort, palpitations, edema, orthopnea, syncopal events. RESPIRATORY: No shortness of breath, cough or sputum, wheezing, hemoptysis. GASTROINTESTINAL: + anorexia, mild abdominal cramping, nausea. No emesis, abdominal pain, melena, BRBPR. GENITOURINARY: No dysuria, frequency, urgency or retention. NEUROLOGICAL: No headache, dizziness, syncope, paralysis, ataxia, numbness or tingling in the extremities, focal weakness, change in bowel or bladder control, seizure. MUSCULOSKELETAL: + muscle, back pain, joint pain or stiffness. HEMATOLOGIC: No anemia, bleeding or bruising. LYMPHATICS: No enlarged nodes. No history of splenectomy. PSYCHIATRIC: + Prior diagnosis of anxiety and depression, denied per patient. ENDOCRINOLOGIC: + reports of sweating, cold or heat intolerance. No polyuria or polydipsia. ALLERGIES: No history of asthma, hives, eczema or rhinitis. Vital Signs Vital Signs Vital Signs: 08/14/23 20:51 08/14/23 21:07 Temperature 97.6 F L Temperature Source Temporal Pulse Rate 115 H 111 H Respiratory Rate 18 18 Blood Pressure 134/87 H 128/90 H Blood Pressure Mean 102 102 Pulse Ox 99 97 Oxygen Delivery Method Room Air Room Air Weight Weight: 180 lb 3 oz Body Mass Index (BMI) 28.2 Physical Exam Narrative Physical Examination: General: Awake, alert, oriented x 3 and cooperative, seated upright in the ED bed, fatigued, yawnin g, restless. Skin: Normal color, normal turgor, no icterus, no cyanosis except various tattoos, staged ecchymoses. HEENT: AT/NC, EOMI, PERRLA, dry MM, no carotid bruits or JVD noted. Lungs: CTA bilaterally, moderate effort, mild decrease BL bases, no rales, ronchi or wheezing. Heart: Tachycardic with regular rhythm; no gallop, rub audible. Abdomen: Soft, mild generalized discomfort but no rebound or guarding, ND, hyperactive BS, no appreciated HSM. Extremities: No cyanosis, clubbing, or edema. Neurological: Patient awake, alert, oriented as noted, cognitive function intact; pupils equally chelsi ctive to light and accommodation, cranial nerves grossly normal, moving a (more content not included)... Normal [facility] Hematocrit Auto (Bld) [Volum e fraction]Ordered By: Davonte Cole on 08-14-2023 Hematocrit (Bld) [Volume fraction] 42.3 % 40-54 [facility] Immature granulocytes/100 WB C Auto (Bld)Ordered By: Davonte Cole on 08-14-2023 Immature granulocytes/100 WBC (Bld) 0.300 % 0.0-0.9 [facility] Comment on above: IG% - Immature Granu locytes (promyelocytes, myelocytes and metamyelocytes) > 1% indicates that a LEFT SHIFT is Present. Laboratory - Chemistry and C hemistry - challengeOrdered By: Davonte Cole on 08-14-2023 Albumin/Globulin [Mass ratio] 0.9 {ratio} 0.9-2.4 [facility] ALP [Catalytic activity/Vol] 83 U/L 45-117 [facility] ALT [Catalytic activity/Vol] 24 U/L 16-61 [facility] CO2 [Moles/Vol] 27.0 mmol/L 21.0-32.0 [facility] Globulin (S) [Mass/Vol] 4.1 g/dL 2.2-4.2 [facility] Urea nitrogen/Creatinine [Mass ratio] 16.8 mg/mg 10-20 [facility] Laboratory - Drug toxicology Ordered By: Davonte Cole on 08-14-2023 Amphetamines Ql (U) Positive <1000 ng/mL [facility] Benzodiazepines Ql (U) Negative < 200 ng/mL [facility] Cannabinoids Screen Ql (U) Negative < 50 ng/mL [facility] Cocaine Ql (U) Positive < 300 ng/mL [facility] Opiates Ql (U) Negative < 300 ng/mL [facility] Laboratory - Hematology and Cell countsOrdered By: Davonte Cole on 08-14-2023 MCH (RBC) [Entitic mass] 29.1 pg 27.0-32.0 [facility] MCHC (RBC) [Mass/Vol] 34.3 g/dL 32-36 [facility] Nucleated RBC/100 WBC (Bld) [Ratio] 0 % 0-5 [facility] Platelet mean volume (Bld) [Entitic vol] 8.6 fL 6.2-12.0 [facility] Platelets (Bld) [#/Vol] 286 10*3/uL 150-450 [facility] No Panel InformationOrdered By: Davonte Cole on 08-14-2023 MDMA (Ecstasy) Screen Positive < 500 ng/mL [facility] Urine Barbiturates Screen Negative < 200 ng/mL [facility] Urine Drug Screen Comment [facility] Comment on above: CONFIRMATORY TESTING FOR ALL POSITIVE URINE DRUG SCREENRESULTS WILL ONLY BE SENT OUT UPON PHYSICIAN ORDER. VISTA Urine Drug Screen methods provide only preliminaryanalytical test results. A more specific alternate chemicalmethod must be used in order to obtain a confirmedanalytical result. Gas chromatography/mass spectrometery(GC/MS) is the preferred confirmatory method. Clinicalconsideration and professional judgement should be appliedto any drug of abuse test result, particularly whenpreliminary positive results are used. URINE TCA TESTING MUST BE ORDERED SEPARATELY. USE TESTMNEMONIC: [facility] Urine Methadone Screen Negative < 300 ng/mL [facility] Estimated Creatinine Clearance Calc 98.37 ml/min [facility] Estimated GFR (MDRD) Amer 109 mL/min >60 [facility] Comment on above: GFR Calc Estimated GFR (MDRD) Non-Af Amer 90 mL/min >60 [facility] Comment on above: Non- GFR Calc Ethyl Alcohol Level < 3.0 mg/dL [facility] Comment on above: The serum:whole bloo d ethanol ratio is approximately 1.14and varies slightly with hematocrit. Medical Alcohol reference interval and critical value innon-tolerant individuals; 50 - 100 Impairment 100 Intoxication 100 - 250 Severe Poisoning 250 - 400 Deep/possible fatal coma RBC Auto (Bld) [#/Vol]Ordere d By: Davonte Cole on 08-14-2023 RBC (Bld) [#/Vol] 4.98 10*6/uL 4.6-6.2 [facility] Serum or plasma calcium john urement (mass/volume)Ordered By: Davonte Cole on 08-14-2023 Calcium [Mass/Vol] 9.1 mg/dL 8.5-10.1 [facility] Serum or plasma creatinine m easurement (mass/volume)Ordered By: Davonte Cole on 08-14-2023 Creatinine [Mass/Vol] 0.95 mg/dL 0.70-1.30 [facility] Comment on above: The validity of the calculated GFR & GFRAA in patients over 70 years has not been determined. Clinical correlation is essential. Serum or plasma urea nitroge n measurement (mass/volume)Ordered By: Davonte Cole on 08-14-2023 Urea nitrogen [Mass/Vol] 16 mg/dL 7-18 [facility] Thin prep Papanicolaou smear with manual screeningOrdered By: Davonte Cole on 08-14-2023 Thin prep Papanicolaou smear with manual screening 3.7 g/dL 3.2-5.0 [facility] Thin prep Papanicolaou smear with manual screening 18 U/L 15-37 [facility] Thin prep Papanicolaou smear with manual screening 7 5-15 [facility] Urine Drug Screen (VISTA)on 08-14-2023 AMPHETAMINES Positive Abnormal <1000 ng/mL [facility] Comment on above: Performed By: #### L 505.5000, L500.4050, L501.9100, L100.0100 ####[facility] [address] [place], [address] BARBITIURATES Negative Normal < 200 ng/mL [facility] Comment on above: Performed By: #### L 505.5000, L500.4050, L501.9100, L100.0100 ####[facility] [address] [place], [address] BENZODIAZIPINE Negative Normal < 200 ng/mL [facility] Comment on above: Performed By: #### L 505.5000, L500.4050, L501.9100, L100.0100 ####[facility] [address] [place], [place], [phone] COCAINE Positive Abnormal < 300 ng/mL [facility] Comment on above: Performed By: #### L 505.5000, L500.4050, L501.9100, L100.0100 ####[facility] [address] [place], [place], [phone] ECSTACY Positive Abnormal < 500 ng/mL [facility] Comment on above: Performed By: #### L 505.5000, L500.4050, L501.9100, L100.0100 ####[facility] [address] [place], [place], [phone] METHADONE Negative Normal < 300 ng/mL [facility] Comment on above: Performed By: #### L 505.5000, L500.4050, L501.9100, L100.0100 ####[facility] [address] [place], [place], [phone] OPIATES Negative Normal < 300 ng/mL [facility] Comment on above: Performed By: #### L 505.5000, L500.4050, L501.9100, L100.0100 ####[facility] [address] [place], [address] PCP Negative Normal < 25 ng/mL [facility] Comment on above: Performed By: #### L 505.5000, L500.4050, L501.9100, L100.0100 ####[facility] [address] [place], [address] THC Negative Normal < 50 ng/mL [facility] Comment on above: Performed By: #### L 505.5000, L500.4050, L501.9100, L100.0100 ####[facility] [address] [place], [address] VISTA UDS PH 5 Normal [facility] Comment on above: Performed By: #### L 505.5000, L500.4050, L501.9100, L100.0100 ####[facility] [address] [place], [address] Urine phencyclidine (PCP) de tectionOrdered By: Davonte Cole on 08-14-2023 Phencyclidine Ql (U) Negative < 25 ng/mL [facility] Comp Metabolic Panelon 09-17 Alanine aminotransferase (ALT) 34 U/L Normal 13-69 [facility] Comment on above: Performed By: #### C MP3, ETOH4, HEMDF ####[facility] [address] [place] [address] Alkaline phosphatase (ALP) 58 U/L Normal 38-126 [facility] Comment on above: Performed By: #### C MP3, ETOH4, HEMDF ####[facility] [address] [place] [address] Anion gap 13 Normal [facility] Comment on above: Performed By: #### C MP3, ETOH4, HEMDF ####[facility] [address] [place] [address] Aspartate aminotransferase (AST) 27 U/L Normal 15-46 [facility] Comment on above: Performed By: #### C MP3, ETOH4, HEMDF ####[id number] [place], [place] Bilirubin (total) 0.9 mg/dL Normal 0.2-1.3 [facility] Comment on above: Performed By: #### C MP3, ETOH4, HEMDF ####[address] [place], [place] Calcium 9.7 mg/dL Normal 8.4-10.2 [facility] Comment on above: Performed By: #### C MP3, ETOH4, HEMDF ####[address] [place], [place] CO2 26 mmol/L Normal 22-30 [facility] Comment on above: Performed By: #### C MP3, ETOH4, HEMDF ####[address] [place], [place] Glucose mass conc 108 mg/dL High 70-100 [facility] Comment on above: Performed By: #### C MP3, ETOH4, HEMDF ####[address] [place], [place] Protein 8.1 g/dL Normal 6.3-8.2 [facility] Comment on above: Performed By: #### C MP3, ETOH4, HEMDF ####[address] [place], [place] Urea nitrogen 10 mg/dL Normal 7-20 [facility] Comment on above: Performed By: #### C MP3, ETOH4, HEMDF ####[address] [place], [place] Creatinine 0.74 mg/dL Normal 0.52-1.25 [facility] Comment on above: Performed By: #### C MP3, ETOH4, HEMDF ####[address] [place], [place] eGFR (black) mL/min/{1.73_m2} Normal >60 [facility] Comment on above: Performed By: #### C MP3, ETOH4, HEMDF ####[address] [place], [place] eGFR (non-black) mL/min/{1.73_m2} Normal >60 [facility] Comment on above: Result Comment: Sour ce- MDRD equation with creatinine calibration to IDMS(NKDEP) eGFR not recommended for drug dose adjustment Performed By: #### C MP3, ETOH4, HEMDF ####[address] [place], [place] Potassium molar conc 4.5 mmol/L Normal 3.5-5.1 [facility] Comment on above: Performed By: #### C MP3, ETOH4, HEMDF ####[id number] [place], [place] Albumin 4.9 g/dL Normal 3.5-5.0 [facility] Comment on above: Performed By: #### C MP3, ETOH4, HEMDF ####[address] [place], [place] Chloride 104 mmol/L Normal 98-107 [facility] Comment on above: Performed By: #### C MP3, ETOH4, HEMDF ####[address] [place], [place] Sodium 144 mmol/L Normal 137-145 [facility] Comment on above: Performed By: #### C MP3, ETOH4, HEMDF ####[address] Drugs of Abuseon 09-17-2017 Oxycodone/Oxymorphin e,Ur Negative Normal [facility] Comment on above: Performed By: #### U AMAC, THC4, DRGA4 ####[id number] [place], [place] Phencyclidine (PCP), Ur Negative Normal [facility] Comment on above: Result Comment: The expected value for all of the drugs listedabove is Negative.The following drugs or drug groups have been screenedfor by Immunoassay at the following thresholds:Amphetamine class (1000 ng/mL), Barbiturates (200 ng/mL),Benzodiazepines (200 ng/mL), Cocaine (300 ng/mL),Methadone (300 ng/mL), Opiates (300 ng/mL),Oxycodone (100 ng/mL), and PCP (25 ng/mL).NOTE: These results are for medical treatment only.Analysis performed using non-forensic procedures. Performed By: #### U AMAC, THC4, DRGA4 ####[address] [address] [place], [place] Opiates, Ur Negative Normal [facility] Comment on above: Performed By: #### U AMAC, THC4, DRGA4 ####[address] [facility] [place] Cocaine, Ur Negative Normal [facility] Comment on above: Performed By: #### U AMAC, THC4, DRGA4 ####[address] Methadone, Ur Negative Normal [facility] Comment on above: Performed By: #### U AMAC, THC4, DRGA4 ####[address] Amphetamines, Ur Negative Normal [facility] Comment on above: Performed By: #### U AMAC, THC4, DRGA4 ####[address] Barbiturates, Ur Negative Normal [facility] Comment on above: Performed By: #### U AMAC, THC4, DRGA4 ####[address] Benzodiazepines, Ur Negative Normal [facility] Comment on above: Performed By: #### U AMAC, THC4, DRGA4 ####[address] [place], [place] Ethanol Serum/Plasmaon 09-17 Ethanol-Serum/Plasma < 0.010 Normal 0.000-0.010 [facility] Comment on above: Result Comment: NOTE : This result is for medical treatment only. Analysis performed using non-forensic procedures. Performed By: #### C MP3, ETOH4, HEMDF ####[address] [address] [place], [place] Hemogram w/ Autodiffon 09-17 Basophils/100 WBC Auto (Bld) 0.6 % Normal 0.0-2.0 [facility] Comment on above: Performed By: #### C MP3, ETOH4, HEMDF ####[address] [place], [place] Eosinophils/100 leukocytes 2.3 % Normal 1.0-6.0 [facility] Comment on above: Performed By: #### C MP3, ETOH4, HEMDF ####[address] [place], [place] Erythrocyte distribution width Auto Ratio (RBC) 13.3 % Normal 11.5-14.5 [facility] Comment on above: Performed By: #### C MP3, ETOH4, HEMDF ####[id number] [place], [place] Erythrocytes (RBC) 5.41 10*6/uL Normal 4.40-5.90 [facility] Comment on above: Performed By: #### C MP3, ETOH4, HEMDF ####[address] Granulocytes/100 WBC (Bld) 77.6 % Normal 40.0-80.0 [facility] Comment on above: Performed By: #### C MP3, ETOH4, HEMDF ####[address] [place], [place] Hematocrit (HCT) 47.2 % Normal 40.0-52.0 [facility] Comment on above: Performed By: #### C MP3, ETOH4, HEMDF ####[address] [place], [place] Hemoglobin mass conc (Bld) 16.6 g/dL Normal 13.0-18.0 [facility] Comment on above: Performed By: #### C MP3, ETOH4, HEMDF ####[address] Lymphocytes/100 leukocytes 13.6 % Low 20.0-40.0 [facility] Comment on above: Performed By: #### C MP3, ETOH4, HEMDF ####[id number] [place], [place] MCH 30.7 pg Normal 26.0-34.0 [facility] Comment on above: Performed By: #### C MP3, ETOH4, HEMDF ####[address] MCHC mass conc (RBC) 35.2 % Normal 32.0-36.0 [facility] Comment on above: Performed By: #### C MP3, ETOH4, HEMDF ####[address] MCV 87.1 fL Normal 80.0-98.0 [facility] Comment on above: Performed By: #### C MP3, ETOH4, HEMDF ####[address] Monocytes/100 leukocytes 5.9 % Normal 2.0-10.0 [facility] Comment on above: Performed By: #### C MP3, ETOH4, HEMDF ####[address] Platelet mean volume (PMV) 7.0 fL Low 7.4-10.4 [facility] Comment on above: Performed By: #### C MP3, ETOH4, HEMDF ####[address] Platelets 257 10*3/uL Normal 140-440 [facility] Comment on above: Performed By: #### C MP3, ETOH4, HEMDF ####[address] WBC (Leukocytes) 8.2 10*3/uL Normal 3.6-10.7 [facility] Comment on above: Performed By: #### C MP3, ETOH4, HEMDF ####[address] Abs Baso Cnt 0.0 10*3/uL Normal 0.0-0.2 [facility] Comment on above: Performed By: #### C MP3, ETOH4, HEMDF ####[id number] [place], [place] Eosinophils 0.0 10*3/uL Normal 0.0-0.5 [facility] Comment on above: Performed By: #### C MP3, ETOH4, HEMDF ####[address] THC, Urineon 09-17-2017 THC, Ur Negative Normal [facility] Comment on above: Result Comment: Thre shold= 50 ng/mL Performed By: #### U AMAC, THC4, DRGA4 ####[address] Urinalysis,Macroon 8 Bilirubin (direct) Negative Normal Negative [facility] Comment on above: Performed By: #### U AMAC, THC4, DRGA4 ####[address] Ketone,Urine Negative Normal Negative [facility] Comment on above: Performed By: #### U AMAC, THC4, DRGA4 ####[id number] [place], [place] Occult Blood,Ur Negative Normal Negative [facility] Comment on above: Performed By: #### U AMAC, THC4, DRGA4 ####[address] Specific [place],Urine 1.005 Normal 1.005-1.030 [facility] Comment on above: Performed By: #### U AMAC, THC4, DRGA4 ####[address] Total Protein,Urine Negative Normal Negative [facility] Comment on above: Performed By: #### U AMAC, THC4, DRGA4 ####[address] Urine, appearance clear Normal Clear [facility] Comment on above: Performed By: #### U AMAC, THC4, DRGA4 ####[facility] [address] [place] [address] Urine, color yellow Normal Lt. Yellow [facility] Comment on above: Performed By: #### U AMAC, THC4, DRGA4 ####[facility] [address] [facility] [address] Urine, glucose presence NORM Normal Negative [facility] Comment on above: Performed By: #### U AMAC, THC4, DRGA4 ####[facility] [address] [facility] [place] Urine, nitrite presence Negative Normal Negative [facility] Comment on above: Performed By: #### U AMAC, THC4, DRGA4 ####[facility] [address] [place], [place] Urine, pH 7.0 Normal 5.0-8.0 [facility] Comment on above: Performed By: #### U AMAC, DANISHA4, DRGA4 ####[facility] [address] [facility], [place] Urine, urobilinogen NORM Normal 0-1 [facility] Comment on above: Performed By: #### U AMAC, THC4, DRGA4 ####[facility] [address] [place], [place] WBC (Leukocytes) Negative Normal Negative [facility] Comment on above: Performed By: #### U AMAC, DANISHA4, DRGA4 ####[facility] [address] [place], [place] PROGRESSon 05-04-2017 PROGRESS HNO ID: [id number] thor: Tom Burtervice: (none)Author Type: PhysicianType: Progress NotesFiled: 05/04/2017 11:40 AMNote Text:OPERATIVE NOTATION FOR [facility] SURGICAL PROCEDURE.April 18, 2017Daheydi Estes 1975 [id number] malePROCEDURE: EGD WITH BIOPSY - [id number]: [place] Madrid M.D. 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, opiates.- Tendonitis- Unspecified gastritis and gastroduodenitis without mention of hemorrhageCOMORBIDITIES - Chronic Drug Abuse and Smoking/TobaccoPost Op Occurrences - NoneWound Classification - Clean ContaminatedOperative note dictated in the [facility] dictationsystem.Tom Madrid MD [facility] CNOVon 04-23-2017 CNOV Office Visit (GENSWS) -------ALMAZ ESTES ([id number]) 1975 MDate Time Provider Department04/23/17 1:30 PM ADRIENNE RICHEY) [place] During your visit today, we recorded the following information about you:Adrienne Richey PA-C 04/23/2017 2:07 PM Signed-Continue Protonix-Strongly recommend tobacco cessation, avoidance of caffeine and foods high incitric acid-Call immediately if symptoms worsen or not resolved in the next 3 monthsdespite above measuresThe following instructions are important for you related to your office visittoday with the [facility].INSTRUCTIONS FOR PEPTIC ULCER DISEASE - ESOPHAGITISI discussed with you the findings of your upper endoscopy. Your upperendoscopy demonstrated esophagitisEsophagitis may be a form of peptic irritation, with acid moving from thestomach to the esophagus (gastroesophageal reflux)Factors that increase acid production include smoking and stress. If yousmoke, stopping smoking will often cure these issues without needing othermedications.Over the counter medications including antiacids and acid reducing medicationsincluding H2 blockers (Zantac and the like) and proton pump inhibitors(prilosec, prevacid and the like) neutralize or prevent acid production.Prescription strength proton pump inhibitors (PPIs) may be necessary if yoursymptoms persist. Carafate may be added to PPI treatment in refractory cases.Avoiding smoking, alcohol and antiinflammatory medications are important in thesuccessful treatment of reflux esophagitis and peptic diseases.Other factors that contribute to GERD and esophagitis are being overweight,eating large meals before laying down and certain foods.Weight loss will help improve many GERD complaints. Remaining upright aftereating large meals and having a small supper will also help symptoms. Avoidingfood that contribute to reflux - chocolate, caffeine, cheddar cheese may alsohelp.Follow up upper endoscopy may be recommended to assure healing of the esophagus.New or worsening symptoms such are epigastric pain, burning, difficultyswallowing or food sticking should be relayed to your physician. Feeling fullearly after eating, or black, tarry, foul smelling stools are also worrisome.If you have any difficulties or concerns, you should contact our officeimmediately.If you note any additional difficulties, questions, or concerns, you shouldcontact our office immediately @ [phone] and [facility].Adrienne Richey PA-C 04/23/2017 4:58 PM SignedFOLLOW UP VISIT - ENDOSCOPYNAME: Almaz Bang NO.: [id number] OF SERVICE: 04/23/2017DOB: 1975REFERRING PHYSICIAN: Haylee Galicia is a patient I am following with Dr. Madrid for suspected upper GIbleeding. Dr. Madrid performed upper endoscopy on 04/18/16. The patient wasfound to have gastritis, duodenitis and distal esophagitis suspicious forcandidal esophagitis. Pathology demonstrated:MICROSCOPIC DIAGNOSISA. Gastric antrum, biopsy: Gastritis.B. Distal esophagus, biopsy: Fragment of squamous mucosa with mild acute inflammation. Fibrinopurulent material. Fragments of superficial gastric mucosa with mild chronic inflammation. Negative for fungal organisms.AM:patrizia 04/21/17COMMENTA. Immunohistochemistry ([id number]) supports the above diagnosis.B. GMS stain with matched control was used in the evaluation of this case.MICROSCOPIC DESCRIPTIONSlides are reviewed.A. Sections show small collections and groups of plasma cells in the mucosa.Active inflammation is not present. These findings are consistent with mildchronic gastritis.GROSS DESCRIPTIONA - Received in fixative is one container labeled with the patient's name anddesignated ANDquot;antral biopsy.ANDquot; The specimen consists of one irregularfragment of light ace soft tissue that measures 0.5 x 0.1 x 0.1 cm. Thespecimen is totally submitted in one cassette.B - Received in fixative is one container labeled with the patient's name anddesignated ANDquot;distal esophageal biopsy.ANDquot; The specimen consists ofmultiple irregular fragments of light ace soft tissue that in aggregate measure0.5 x 0.3 x 0.1 cm. The specimen is totally submitted in one cassette. /SJ:patrizia 04/18/17 TC:2CPT: 24846 x2, 88312 ___- Electronically Signed by: Dr. Tate Dietrich04/21/17 1414RESULTS:ANTIBODY / CLONE RESULTBlock AH Pylori (polyclonal) negativeThese tests were developed and [facility]. They may not have been cleared orapproved by the U.S. Food and Drug Administration. The FDA has determined thatsuch clearance or approval is not necessary.INTERPRETATION:A. Antral biopsy: Negative for Helicobacter pylori organisms.AM:patrizia 04/22/17The patient notes no new complaints since the procedure. His symptoms areimproving currently although not completely resolved. The patient admits hechews tobacco regularly and does sometimes swallow the tobacco juice. He alsoconsumes a large amount of black coffee and admits to poor eating habits.VITALS: There were no vitals taken for this visit.On examination, the abdomen is benign.AssessmentIMPRESSION : gastritis and esophagitis, heavy caffeine and tobacco usePLAN:-Continue Protonix-Strongly recommend tobacco cessation, as well as avoidance of caffeine andfoods high in citric acid-Avoid eating or drinking at night/within 2 hours before laying down to sleep-Call immediately if symptoms worsen or not resolved in the next 3 monthsdespite above measures-if still symptomatic would plan for follow-up EGD atthat time. Otherwise recommend repeat EGD in 2-3 yearsDiagnoses: (K29.50) Chronic antral gastritis (primary encounter diagnosis)(K21.0) Gastro-esophageal reflux disease with esophagitisI spent 25 minutes in the visit, with more than 50% of the total xley-xr-dmaqytig of the visit in counseling / coordination of care. BUCK Cast-CReferring Provider: TOM MADRID [[id number]]Allergies As of Date: 04/23/2017(No Known Allergies)Date Reviewed: 04/23/2017Reviewed by: Adrienne Ray) - Fully AssessedReason for Visit: Post Op [174] Cmt: Endoscopy f/uPrimary Visit Diagnosis:Chronic antral gastritis [K29.50] Other Visit Diagnosis:Gastro-esophageal reflux disease with esophagitis [K21.0]Prescriptions as of 04/23/2017 Sig: PANTOPRAZOLE 40 MG TABLET,DEL*Problem List As Of Date 04/23/2017 Noted Resolved ROTATOR CUFF SYNDR ET AL [726.1] INVALID FOR* Abdominal Pain, Epigastric [R10.13] INVALID FOR* Abdominal Pain, Right Lower Quadrant [R10.31] INVALID FOR* Gastritis/Duodenitis [K29.70, K29.90] INVALID FOR* Right upper quadrant abdominal pain [R10.11] INVALID FOR* Abdominal bloating [R14.0] INVALID FOR* Malaise and fatigue [R53.81, R53.83] INVALID FOR* Other instructions from your clinician: -Continue Protonix -Strongly recommend tobacco cessation, avoidance of caffeine and foods high in citric acid -Call immediately if symptoms worsen or not resolved in the next 3 months despite above measures The following instructions are important for you related to your office visit today with the [facility]. INSTRUCTIONS FOR PEPTIC ULCER DISEASE - ESOPHAGITIS I discussed with you the findings of your upper endoscopy. Your upper endoscopy demonstrated esophagitis Esophagitis may be a form of peptic irritation, with acid moving from the stomach to the esophagus (gastroesophageal reflux) Factors that increase acid production include smoking and stress. If you smoke, stopping smoking will often cure these issues without needing other medications. Over the counter medications including antiacids and acid reducing medications including H2 blockers (Zantac and the like) and proton pump inhibitors (prilosec, prevacid and the like) neutralize or prevent acid production. Prescription strength proton pump inhibitors (PPIs) may be necessary if your symptoms persist. Carafate may be added to PPI treatment in refractory cases. Avoiding smoking, alcohol and antiinflammatory medications are important in the successful treatment of reflux esophagitis and peptic diseases. Other factors that contribute to GERD and esophagitis are being overweight, eating large meals before laying down and certain foods. Weight loss will help improve many GERD complaints. Remaining upright after eating large meals and having a small supper will also help symptoms. Avoiding food that contribute to reflux - chocolate, caffeine, cheddar cheese may also help. Follow up upper endoscopy may be recommended to assure healing of the esophagus. New or worsening symptoms such are epigastric pain, burning, difficulty swallowing or food sticking should be relayed to your physician. Feeling full early after eating, or black, tarry, foul smelling stools are also worrisome. If you have any difficulties or concerns, you should contact our office immediately. If you note any additional difficulties, questions, or concerns, you should contact our office immediately @ [phone] and ask to be transferred to the General Surgery department.Follow-up and Disposition History RecordedEncounter Number: [id number] Status:Closed by ADRIENNE RICHEY PA-C on 04/23/17 [facility] PROGRESSon 04-23-2017 PROGRESS HNO ID: [id number] thor: Adrienne (Buck) GrafService: (none)Author Type: Physician AssistantType: Progress NotesFiled: 04/23/2017 4:58 PMNote Text:FOLLOW UP VISIT - ENDOSCOPYNAME: Almaz Bang NO.: [id number] OF SERVICE: 04/23/2017DOB: 1975REFERRING PHYSICIAN: Haylee Galicia is a patient I am following with Dr. Madrid for suspected upper GIbleeding. Dr. Madrid performed upper endoscopy on 04/18/16. The patientwas found to have gastritis, duodenitis and distal esophagitis suspiciousfor candidal esophagitis. Pathology demonstrated:MICROSCOPIC DIAGNOSISA. Gastric antrum, biopsy: Gastritis.B. Distal esophagus, biopsy: Fragment of squamous mucosa with mild acute inflammation. Fibrinopurulent material. Fragments of superficial gastric mucosa with mild chronic inflammation. Negative for fungal organisms.AM:patrizia 04/21/17COMMENTA. Immunohistochemistry ([id number]) supports the above diagnosis.B. GMS stain with matched control was used in the evaluation of thiscase.MICROSCOPIC DESCRIPTIONSlides are reviewed.A. Sections show small collections and groups of plasma cells in themucosa. Active inflammation is not present. These findings areconsistent with mild chronic gastritis.GROSS DESCRIPTIONA - Received in fixative is one container labeled with the patient's nameand designated antral biopsy. The specimen consists of one irregularfragment of light ace soft tissue that measures 0.5 x 0.1 x 0.1 cm. Thespecimen is totally submitted in one cassette.B - Received in fixative is one container labeled with the patient's nameand designated distal esophageal biopsy. The specimen consists ofmultiple irregular fragments of light ace soft tissue that in aggregatemeasure 0.5 x 0.3 x 0.1 cm. The specimen is totally submitted in onecassette. / SJ:patrizia 04/18/17 TC:2CPT: 65883 x2, 88312 Electronically Signed by: Dr. Tate Dietrich 04/21/17 1414RESULTS:ANTIBODY / CLONE RESULTBlock AH Pylori (polyclonal) negativeThese tests were developed and their performance characteristicsdetermined by [facility]. They may not havebeen cleared or approved by the U.S. Food and Drug Administration. TheFDA has determined that such clearance or approval is not necessary.INTERPRETATION:A. Antral biopsy: Negative for Helicobacter pylori organisms.AM:patrizia 04/22/17The patient notes no new complaints since the procedure. His symptomsare improving currently although not completely resolved. The patientadmits he chews tobacco regularly and does sometimes swallow the tobaccojuice. He also consumes a large amount of black coffee and admits to pooreating habits.VITALS: There were no vitals taken for this visit.On examination, the abdomen is benign.AssessmentIMPRESSION : gastritis and esophagitis, heavy caffeine and tobacco usePLAN:-Continue Protonix-Strongly recommend tobacco cessation, as well as avoidance of caffeineand foods high in citric acid-Avoid eating or drinking at night/within 2 hours before laying down tosleep-Call immediately if symptoms worsen or not resolved in the next 3 monthsdespite above measures-if still symptomatic would plan for follow-up EGDat that time. Otherwise recommend repeat EGD in 2-3 yearsDiagnoses: (K29.50) Chronic antral gastritis (primary encounterdiagnosis)(K21.0) Gastro-esophageal reflux disease with esophagitisI spent 25 minutes in the visit, with more than 50% of the oqsylpdrq-ki-lxtn time of the visit in counseling / coordination of care. Adrienne Richey PA-C [facility] CNSWon 04-21-2017 [facility] Social Work ([place]) -------ALMAZ ESTES ([id number]) 1975 MDate Time Provider Department04/21/17 KEIRY MELO (SW) During your visit today, we recorded the following information about you:FIORELLA Mccray 04/21/2017 10:46 AM SignedSocial Work Problem Referral NoteINFORMATION/REFERRAL : Almaz Estes 42 year old male was referred to [facility] [facility] for the following reason(s): Short term disabilityPERSONS INTERVIEWED: could not reach patientINTERVENTION: attempted to call patientAffect/Mood: The patient is noted as patient not presentIDENTIFIED PROBLEMS/NEEDS: DisabilityIntervention/Refe rral to be provided:Could not contact patientIMPRESSION/PLAN: PAUL received paperwork for short-term disability for a Lorena, 1975. This is the only patient that comes up for that .This patient has never been seen by this department and has nohematology/oncology diagnosis. PAUL attempted to call patient to see what doctortracy needs to be directed to. Patient's phone went straight to voiceWeather Trends Internationalil, buthe does not have voicemail set up at this time, so SW was unable to leave amessage. PAUL then called patient's emergency contact. That number stated it wasno longer in services so SW was once again unable to leave a message. PAUL willattempt to call back again later.F/U APPOINTMENT: Jovanny Davidson As of Date: 04/21/2017(No Known Allergies)Date Reviewed: 08/06/2016Reviewed by: Zoraida Hudson) Nany Morillo AssessedReason for Visit: Social Work Services [507] Cmt: short term disabilityProblem List As Of Date 04/21/2017 Noted Resolved ROTATOR CUFF SYNDR ET AL [726.1] INVALID FOR* Abdominal Pain, Epigastric [R10.13] INVALID FOR* Abdominal Pain, Right Lower Quadrant [R10.31] INVALID FOR* Gastritis/Duodenitis [K29.70, K29.90] INVALID FOR* Right upper quadrant abdominal pain [R10.11] INVALID FOR* Abdominal bloating [R14.0] INVALID FOR* Malaise and fatigue [R53.81, R53.83] INVALID FOR* Status:Closed by KEIRY MELO on 04/21/17 Normal [facility] PROGRESSon 04-21-2017 PROGRESS HNO ID: [id number] thor: Keiry Terrazas) Nathanielvice: (none)Author Type: Social WorkerType: Progress NotesFiled: 04/21/2017 10:46 AMNote Text:Social Work Problem Referral NoteINFORMATION/REFERRAL : Almaz Estes 42 year old male was referred [facility] Work for the following reason(s): Short termdisabilityPERSONS INTERVIEWED: could not reach patientINTERVENTION: attempted to call patientAffect/Mood: The patient is noted as patient not presentIDENTIFIED PROBLEMS/NEEDS: DisabilityIntervention/Refe rral to be provided:Could not contact patientIMPRESSION/PLAN: SW received paperwork for short-term disability for VERONICA Her 1975. This is the only patient that comes up forthat . This patient has never been seen by this department and has nohematology/oncology diagnosis. SW attempted to call patient to see whatdoctor this needs to be directed to. Patient's phone went straight tovoicemail, but he does not have voicemail set up at this time, so SW wasunable to leave a message. SW then called patient's emergency contact.That number stated it was no longer in services so SW was once againunable to leave a message. SW will attempt to call back again later.F/U APPOINTMENT: FIORELLA Davidson [facility] CNChuyitan 04-18-2017 CNOP Operative Note (Enc) (GENSWS) -------Progress Notes:Tom Madrid MD 05/04/2017 11:40 AM SignedOPERATIVE NOTATION FOR [facility] SURGICAL PROCEDURE.April 18, 2017Almaz Estes 1975 [id number] malePROCEDURE: EGD WITH BIOPSY - 36[address]-7[address]CYBUREV: Berlin Madrid M.D. FACS MANUFACTURING COST ESTIMATOR: NoneDEPT: NO PROVIDER: A07=BfibvryTom Madrid MD POS:0Z2=EERLDZAATPTLWKIBLC: (K92.2, T39.395A) GI bleed due to NSAIDs (primary encounterdiagnosis)ASA CLASS: 3 - SevereFINDINGS: Gastritis, duodenitis and moderate esophagitisCOMPLICATIONS: NonePMHx -PAST MEDICAL HISTORYDiagnosis Date- Abdominal pain, right lower quadrant- Back pain- Chemical dependency (HCC)- Narcotic abuse in remission Heroin, opiates.- Tendonitis- Unspecified gastritis and gastroduodenitis without mention of hemorrhageCOMORBIDITIES - Chronic Drug Abuse and Smoking/TobaccoPost Op Occurrences - NoneWound Classification - Clean ContaminatedOperative note dictated in the [facility] dictation system.Tom Madrid MDEncounter Status:Closed by TOM MADRID MD on 05/04/17Encounter Number: [id number] Normal [facility] Vital Signs Date Time Vital Sign Value Performing Clinician Faci lity 08-17-2023 12:00-0400 Body temperature 97.2 [degF] No Primary Care Physician [facility] 08-17-2023 12:00-0400 Diastolic blood pressure 83 mm[Hg] No Primary Care Physician [facility] 08-17-2023 12:00-0400 Heart rate 71 /min No Primary Care Physician [facility] 08-17-2023 12:00-0400 Respiratory rate 14 /min No Primary Care Physician [facility] 08-17-2023 12:00-0400 SaO2% (BldA) [Mass fraction] 98 % No Primary Care Physician [facility] 08-17-2023 12:00-0400 Systolic blood pressure 127 mm[Hg] No Primary Care Physician [facility] 08-14-2023 23:37-0400 Body height 170.18 cm No Primary Care Physician [facility] 08-14-2023 23:37-0400 Body mass index (BMI) [Ratio] 28.4 kg/m2 No Primary Care Physician [facility] 08-14-2023 23:37-0400 Body weight 82.37 kg No Primary Care Physician [facility] 08-14-2023 22:53-0400 Body temperature 97.6 [degF] [facility] 08-14-2023 22:53-0400 Diastolic blood pressure 110 mm[Hg] [facility] 08-14-2023 22:53-0400 Heart rate 100 /min [facility] 08-14-2023 22:53-0400 Respiratory rate 18 /min [facility] 08-14-2023 22:53-0400 SaO2% (BldA) [Mass fraction] 97 % [facility] 08-14-2023 22:53-0400 Systolic blood pressure 121 mm[Hg] [facility] 08-14-2023 20:51-0400 Body height 170.18 cm [facility] 08-14-2023 20:51-0400 Body mass index (BMI) [Ratio] 28.2 kg/m2 [facility] 08-14-2023 20:51-0400 Body weight 81.73 kg [facility] Encounters Encounter Date Encounter Type Care Provider Facility Start: 08-17-2023 Non-patient / Non-visit No [facility] Work Phone: Start: 08-16-2023 Non-patient / Non-visit No [facility] Physician [facility] Work Phone: Start: 08-15-2023 Non-patient / Non-visit No [facility] Phys[facility] Work Phone: Start: 08-14-2023 End: 08-17-2023 ambulatory [facility] Facility:[facility] Start: 08-14-2023 End: 08-17-2023 Evaluation and management of inpatient [facility] Work Phone: Start: 09-17-2017 Emergency department patient visit UNKNOWN PROVIDER [facility] Start: 04-23-2017 End: 04-28-2017 Ambulatory ADRIENNE RICHEY (PA) [facility] Plan of Treatment Date Care Activity Detail Author Start: 08-17-2023 Patient discharge [facility] Start: 08-15-2023 Assessment using assessment scale [facility] Start: 08-15-2023 [facility] Start: 08-14-2023 Following clinical p athway protocol [facility] Start: 08-14-2023 Assessment of risk o f venous thromboembolism [facility] Start: 08-14-2023 Introduction of urinary catheter [facility] Start: 08-14-2023 Notification of physician [facility] Start: 08-14-2023 Provision of activity privileges [facility] Start: 08-14-2023 Referral to service [facility] Start: 08-14-2023 Vital signs measurements [facility] Start: 08-14-2023 [facility] Start: 08-14-2023 Verification routine [facility] Start: 08-14-2023 Admission procedure [facility] Start: 08-14-2023 Hospital admission, emergency, from emergency room, medical nature [facility] Start: 08-14-2023 [facility] Patient referral [facility] Work Phone: Payers Date Payer Category Payer Self-pay [id number] 2023 Unknown [id number] 2023 Unknown [id number] 2023 Unknown 1983 Unknown Unknown ANTHEM [id number] Unknown [facility] PLAN [id number] Unknown [facility] [id number] Unknown [id number] 2.16.8 [id number] Unknown [id number] 2.16.8 [id number] Unknown [id number] 2.16.8 [id number] Unknown [id number] 2.16.8 [id number] Unknown [id number] 2.16.8 [id number] Social History Date Type Detail Facility Start: 08-14-2023 End: 08-15-2023 Tobacco smoking status NHIS Unknown if ever smoked [facility] Start: 04-17-2017 None [facility] Start: 04-17-2017 With Family [facility] Start: 04-17-2017 Cigarettes;Chew [facility] Start: 1975 Sex Assigned At Male [facility] Goals Date Patient Goal Desired Activity /State Functional Status Date Assessment Result Facility 08-17-2023 Functional status Ambulates;Up ad hannah [facility] Work Phone: 08-16-2023 Functional status None [facility] Work Phone: Mental Status Date Assessment Result Facility 08-16-2023 Cognitive function Voice/Name [facility] Work Phone: Progress note 08-17-2023 Note Date & Type Note Facility 08-17-2023 Progress note Note Date/Time August 17, 2023 11:14a m [facility] Medical Records Department [address] [place] [address] Progress Note - Hospitalist 08/17/23 1114 MR#: [id number] Acct: [id number] Name: ALMAZ ESTES Rep #:[id number] : 1975 48 From: Anthony sterling DO PCP: Care Physician,No Primary Status :ADM IN Location: [address] Reason for Visit Reason for Visit: Diagnoses Opioid dependence, uncomplicated (08/14/23) Opioid use, unspecified with withdrawal (08/14/23) Subjective Subjective No acute events overnight. Patient seen at bedside this morning. Patient was sleeping on arrival to the room. Reported feeling fatigued but withdrawal symptoms were improved today. Did start taking Subutex again yesterday evening with some relief of withdrawal symptoms. No other acute concerns today. Objective Data Objective Data Vital Signs: Vital Signs Temp Pulse Resp BP Pulse Ox O2 Del Method 98.1 F 79 20 H 121/74 H 96 Room Air 08/17/23 06:00 08/17/23 06:00 08/17/23 06:00 08/17/23 06:00 08/17/23 06:00 08/17/23 06:00 Oxygen Delivery Method Room Air Weight: 82.372 kg Body Mass Index (BMI) 28.4 Intake & Output: Intake and Output for Last 24 Hours 08/15/23 08/16/23 08/17/23 23:59 23:59 23:59 Intake Total 1650 / 1650 500 / 500 Balance 1650 / 1650 500 / 500 Lab / Micro Data 08/14/23 21:14 08/14/23 21:14 Physical Exam Const alert and oriented x3 Constitutional Narrative: Middle-age male, lying comfortably in bed, fatigued appearing, otherwise answering questions appropriately and conversing normally. General Appearance: cooperative HEENT normocephalic, head/scalp atraumatic, hearing grossly normal bilaterally and nasal mucous membranes and turbinates normal Eyes PERRL, EOMs intact bilaterally and conjunctivae normal Neck full ROM Chest inspection of chest normal Resp normal respiratory effort, normal air movement, no use of accessory muscles and clear to auscultation bilaterally Cardio regular rate, regular rhythm, no murmurs and peripheral pulses 2+ throughout GI normal to inspection, nondistended, normoactive bowel sounds, soft to palpation,non-tender and non-distended Back/Spine normal ROM Extremity normal to inspection, full ROM and no pedal edema Skin no rashes or lesions noted Neuro moves all extremities and no focal motor deficits Speech: speech normal Psych mental status grossly normal Mood & Affect: anxious Assessment & Plan Assessment/Plan (1) Opioid withdrawal: (2) Opioid dependence: PLAN: Plan Patient is a 48-year-old male who presented to [facility] ED on 08/14/2023 for opiate detoxification. 1. Opiate use disorder with acute withdrawal, polysubstance abuse Reported IV fentanyl use daily recently with prior history of heroin and meth abuse. Last used on morning of admission. UDS on admit positive for amphetamines, MDMA, cocaine. Notably negative for opiates but fentanyl does notshow up. Suspect patient's fentanyl was being cut with these other drugs. ? Continue Subutex taper with other as needed medications per opiate withdrawal order set. Addiction medicine following. Likely stable for home tomorrow with outpatient follow up with [facility] on discharge. 2. Tobacco abuse ? Encouraged cessation. Nicotine patch ordered per patient request. DVT prophylaxis: Lovenox CODE STATUS: Full code, verified Expected disposition: Home, 1 to 2 days Total clinical time spent by myself addressing the patient's medical issues, reviewing all the data, and collaborating with patient's care team: 25 minutes. Charges/Coding Visit Charges Inpatient E&M: 20520 Subs Hosp L1 08/17/23 1248 <Electronically signed by Anthony Villanueva DO> Cosigner Signature (if applicable): CC: ~ Signed [facility] Work Phone: Discharge summary note 08-17-2023 Note Date & Type Note Facility 08-17-2023 Note [facility] Medical Records Department [address] [place] [address] Discharge Summary 08/17/23 1436 MR#: [id number] Acct: [id number] Name: ALMAZ ESTES Rep #: [id number] : 1975 48 From: Anthony Villanueva DO PCP: Care Physician,No Primary Status:ADM IN [id number] Prov[facility] Date of Admission: 08/14/23 Date of Discharge: 08/17/23 Primary Care Physician: No Primary Care Phys Reason For Visit: ACUTE OPIATE WITHDRAWL Diagnosis Discharge Diagnosis (1) Opioid withdrawal: Status: Acute Code(s): F11.93 - Opioid use, unspecified with withdrawal (2) Opioid dependence: Status: Acute Code(s): F11.20 - Opioid dependence, uncomplicated Medications at Discharge Home Medications NK 08/15/21 Hospital Course Operations None Procedures None Summary of Care Provided Minutes Spent on Discharge: 25 Hospital Course: Patient is a 48-year-old male who presented to [facility] ED on 08/14/2023 for opiate detoxification. Hospital course as noted below. Patient discharged home in stable condition on . 1. Opiate use disorder with acute withdrawal, polysubstance abuse Reported IV fentanyl use daily recently with prior history of heroin and meth abuse. Last used on morning of admission. UDS on admit positive for amphetamines, MDMA, cocaine. Notably negative for opiates but fentanyl does not show up. Suspect patient's fentanyl was being cut with these other drugs. ??? Treated with Subutex taper with other as needed medications per opiate withdrawal order set during hospitalization with good symptom control. Addiction medicine followed. Discharged home with plan for outpatient follow-up with [facility]. 2. Tobacco abuse ??? Encouraged cessation. Nicotine patch provided per patient request while inpatient. Total clinical time spent by myself addressing the patient's medical issues, reviewing all the data, and collaborating with patient's care team: 25 minutes. Physical Exam Const alert and oriented x3 Constitutional Narrative: Middle-age male, lying comfortably in bed, fatigued appearing, otherwise answering questions appropriately and conversing normally. General Appearance: cooperative HEENT normocephalic, head/scalp atraumatic, hearing grossly normal bilaterally and nasal mucous membranes and turbinates normal Eyes PERRL, EOMs intact bilaterally and conjunctivae normal Neck full ROM Chest inspection of chest normal Resp normal respiratory effort, normal air movement, no use of accessory muscles and clear to auscultation bilaterally Cardio regular rate, regular rhythm, no murmurs and peripheral pulses 2+ throughout GI normal to inspection, nondistended, normoactive bowel sounds, soft to palpation, non-tender and non- distended Back/Spine normal ROM Extremity normal to inspection, full ROM and no pedal edema Skin no rashes or lesions noted Neuro moves all extremities and no focal motor deficits Speech: speech normal Psych mental status grossly normal Mood Affect: anxious Weight / BMI Weight Weight: 82.372 kg Body Mass Index (BMI) 28.4 ABG / Lab / Microbiology Data 08/14/23 21:14 08/14/23 21:14 D/C Instructions Discharge Diet: No restrictions Meaningful Use Info Meaningful Use Meaningful Use Diagnoses (Choose all that apply): None applicable Ischemic Stroke Statin Dosing Therapy Reference: STATIN DOSE THERAPY REFERENCE: * Patients > 75 years receive moderate or high dose statin therapy. * Patients 75 years or YOUNGER should receive HIGH intensity statin dose unless contraindicated. You will be required to document reason for non-treatment if statin daily dose does not meet guidelines. HIGH DOSE STATIN THERAPY DAILY Atorvastatin > than or = to 40 mg Rosuvastatin > than or = to 20 mg Amlodipine + Atorvastatin > than or = to 2.5/40 mg Ezetimibe + Simvastatin 10/80 mg Simvastatin 80mg Discharge Plan Admission Admit Date/Time: 08/14/23 22:28 Primary Reason for Your Visit: opiate detox Attending Provider: Anthony Villanueva Primary Care Provider: Care Physician,No Primary Consulting Providers: Carmita Spann Discharge Orders/Prescriptions Prescriptions: No Action NK Referrals / Follow Up: Care Physician,No Primary [Primary Care Provider] - Disposition Disposition (needs filled in before D/C Order can be placed): Home, Self Care Charges/Coding Visit Charges Inpatient E M: 49044 Disch Hosp 08/17/23 1437 Cosigner Signature (if applicable): CC: Dr. Anthony Villanueva DO; No Primary Care Physician Signed [facility] Progress note 08-16-2023 Note Date & Type Note Facility 08-16-2023 Progress note Note Date/Time August 16, 2023 9:24am [facility] Medical Records Department [address] [place] [address] Progress Note - Hospitalist 08/16/23923 MR#: [id number] Acct: [id number] Name: ALMAZ ESTES Rep #:[id number] : 1975 48 From: Anthony sterling DO PCP: Care Physician,No Primary Status :ADM IN Location: [facility] RI025-8 Reason for Visit Reason for Visit: Diagnoses Opioid dependence, uncomplicated (08/14/23) Opioid use, unspecified with withdrawal (08/14/23) Subjective Subjective No acute events overnight. Patient seen in bed this morning. Patient was sleeping on my arrival to the room. He did appear fatigued during our encounter. Patient took 2 doses of Subutex yesterday but notably refused his dose this morning; when asked why he stated he felt like the Subutex caused worsening withdrawal symptoms yesterday. Stated he would not like to take anymore Subutex going forward, would rather like to manage the withdrawal symptoms with the other as needed medications. He reported mild to moderate withdrawal symptoms this morning, slightly improved from yesterday. No other acute concerns this morning. Objective Data Objective Data Vital Signs: Vital Signs Temp Pulse Resp BP Pulse Ox O2 Del Method 97.6 F L 80 18 131/91 H 96 Room Air 08/16/23 06:12 08/16/23 06:12 08/16/23 06:12 08/16/23 06:12 08/16/23 08:01 08/16/23 08:01 Oxygen Delivery Method Room Air Weight: 82.372 kg Body Mass Index (BMI) 28.4 Intake & Output: Intake and Output for Last 24 Hours 08/14/23 08/15/23 08/16/23 23:59 23:59 23:59 Intake Total 1650 / 1650 Balance 1650 / 1650 Lab / Micro Data 08/14/23 21:14 08/14/23 21:14 Physical Exam Const alert and oriented x3 Constitutional Narrative: Middle-age male, lying comfortably in bed, fatigued appearing, otherwise answering questions appropriately and conversing normally. General Appearance: cooperative HEENT normocephalic, head/scalp atraumatic, hearing grossly normal bilaterally and nasal mucous membranes and turbinates normal Eyes PERRL, EOMs intact bilaterally and conjunctivae normal Neck full ROM Chest inspection of chest normal Resp normal respiratory effort, normal air movement, no use of accessory muscles and clear to auscultation bilaterally Cardio regular rate, regular rhythm, no murmurs and peripheral pulses 2+ throughout GI normal to inspection, nondistended, normoactive bowel sounds, soft to palpation,non-tender and non-distended Back/Spine normal ROM Extremity normal to inspection, full ROM and no pedal edema Skin no rashes or lesions noted Neuro moves all extremities and no focal motor deficits Speech: speech normal Psych mental status grossly normal Mood & Affect: anxious Assessment & Plan Assessment/Plan (1) Opioid withdrawal: (2) Opioid dependence: PLAN: Plan Patient is a 48-year-old male who presented to [facility] ED on 08/14/2023 for opiate detoxification. 1. Opiate use disorder with acute withdrawal, polysubstance abuse ? Reported IV fentanyl use daily recently with prior history of heroin and meth abuse. Last used on morning of admission. UDS on admit positive for amphetamines, MDMA, cocaine. Notably negative for opiates but fentanyl does notshow up. Suspect patient's fentanyl was being cut with these other drugs. Started on Subutex taper with other as needed medications per opiate withdrawal order set on admission. Took 2 doses of Subutex and felt like this precipitatedwithdrawal symptoms so he does not want to take this going forward, prefers to manage withdrawal symptoms with other as needed medications which is reasonable. Addiction medicine following. Likely planning for outpatient follow-up with 180 on discharge. 2. Tobacco abuse ? Encouraged cessation. Nicotine patch ordered per patient request. DVT prophylaxis: Lovenox CODE STATUS: Full code, verified Expected disposition: Home, 1 to 2 days Total clinical time spent by myself addressing the patient's medical issues, reviewing all the data, and collaborating with patient's care team: 25 minutes. Charges/Coding Visit Charges Inpatient E&M: 09687 Subs Hosp L1 08/16/23 1026 <Electronically signed by Anthony Villanueva DO> Cosigner Signature (if applicable): CC: ~ Signed [facility] Work Phone: Progress note 08-15-2023 Note Date & Type Note Facility 08-15-2023 Progress note Note Date/Time August 15, 2023 11:44am [facility] Medical Records Department [address] [place] [address] Progress Note - Hospitalist 08/15/23 1144 MR#: [id number] Acct: [id number] Name: ALMAZ ESETS Rep #:[id number] : 1975 48 From: Anthony sterling DO PCP: Care Physician,No Primary Status :ADM IN [facility] Reason for Visit Reason for Visit: Diagnoses Opioid use, unspecified with withdrawal (08/14/23) Subjective Subjective Patient admitted yesterday evening for opiate detoxification. Seen at bedside this morning. Patient had not received any doses of Subutex yet when I saw him apparently given concern for other substances noted on his UDS. He did appear fatigued and mildly diaphoretic. Noted that he felt fairly nauseous but did want to try to eat breakfast this morning. He otherwise felt generally achy andsomewhat sick. Denies any fevers or chills. No other acute concerns. Objective Data Objective Data Vital Signs: Vital Signs Temp Pulse Resp BP Pulse Ox O2 Del Method 98.7 F 72 18 129/83 H 98 Room Air 08/15/23 11:03 08/15/23 11:03 08/15/23 11:03 08/15/23 11:08/15/23 11:08/15/23 11:03 Oxygen Delivery Method Room Air Weight: 82.372 kg Body Mass Index (BMI) 28.4 Lab / Micro Data 08/14/23 21:14 08/14/23 21:14 Labs: Laboratory Results - last 24 hr 08/14/23 21:14: WBC 7.7, RBC 4.98, Hgb 14.5, Hct 42.3, MCV 84.9, MCH 29.1, MCHC 34.3, RDW Std Deviation 39.0, RDW Coeff of Jorge 12.6, Plt Count 286, MPV 8.6, Immature Gran % (Auto) 0.300, Neut % (Auto) 56.6, Lymph % (Auto) 29.3, [place] % (Auto) 8.2, Eos % (Auto) 4.8, Baso % (Auto) 0.8, Absolute Neuts (auto) 4.4, Absolute Lymphs (auto) 2.25, Nucleated RBC % 0, Sodium 142, Potassium 3.6, Chloride 108 H, Carbon Dioxide 27.0, Anion Gap 7, BUN 16, Creatinine 0.95, EstimCreat Clear Calc 98.37, Est GFR (MDRD) Af Amer 109, Est GFR (MDRD) Non-Af 90, BUN/Creatinine Ratio 16.8, Glucose 109 H, Calcium 9.1, Total Bilirubin 0.50, AST 18, ALT 24, Alkaline Phosphatase 83, Total Protein 7.8, Albumin 3.7, Globulin 4.1, Albumin/Globulin Ratio 0.9, Ethyl Alcohol < 3.0 08/14/23 22:00: Urine Opiates Screen NEGATIVE, Urine Methadone Screen NEGATIVE, Ur Barbiturates Screen NEGATIVE, Ur Phencyclidine Scrn NEGATIVE, Ur AmphetaminesScreen POSITIVE H, MDMA (Ecstasy) Screen POSITIVE H, U Benzodiazepines Scrn NEGATIVE, Urine Cocaine Screen POSITIVE H, U Cannabinoids Screen NEGATIVE, Ur Drug Screen Comment 08/15/23 06:19: Syphilis Total Ab Non-reactive, Hep Bs Antigen Non-Reactive, HepBs Antibody Reactive, Hepatitis C Antibody Non-Reactive, HIV 1&2 Antibody Non-Reactive Physical Exam Const alert and oriented x3 Constitutional Narrative: Middle-age male, sitting up in bed, fatigued and somewhat diaphoretic appearing,otherwise answering questions appropriately and conversing normally. General Appearance: cooperative HEENT normocephalic, head/scalp atraumatic, hearing grossly normal bilaterally and nasal mucous membranes and turbinates normal Eyes PERRL, EOMs intact bilaterally and conjunctivae normal Neck full ROM Chest inspection of chest normal Resp normal respiratory effort, normal air movement, no use of accessory muscles and clear to auscultation bilaterally Cardio regular rate, regular rhythm, no murmurs and peripheral pulses 2+ throughout GI normal to inspection, nondistended, normoactive bowel sounds, soft to palpation,non-tender and non-distended Back/Spine normal ROM Extremity normal to inspection, full ROM and no pedal edema Skin no rashes or lesions noted Neuro moves all extremities and no focal motor deficits Speech: speech normal Psych mental status grossly normal Mood & Affect: anxious Assessment & Plan Assessment/Plan (1) Opioid withdrawal: (2) Opioid dependence: PLAN: Plan Patient is a 48-year-old male who presented to [facility] ED on 08/14/2023 for opiate detoxification. 1. Opiate use disorder with acute withdrawal, polysubstance abuse ? Reported IV fentanyl use daily recently with prior history of heroin and meth abuse. Last used on morning of admission. UDS on admit positive for amphetamines, MDMA, cocaine. Notably negative for opiates but fentanyl does notshow up. Suspect patient's fentanyl was being cut with these other drugs. Okayfor Subutex taper and other as needed medications per opiate withdrawal order set. Addiction medicine following. 2. Tobacco abuse ? Encouraged cessation. Nicotine patch ordered per patient request. DVT prophylaxis: Lovenox CODE STATUS: Full code, verified Expected disposition: Home, 2 to 3 days Total clinical time spent by myself addressing the patient's medical issues, reviewing all the data, and collaborating with patient's care team: 25 minutes. Charges/Coding Visit Charges Inpatient E&M: 08532 Subs Hosp L1 08/15/23 1536 <Electronically signed by Anthony Villanueva DO> Cosigner Signature (if applicable): CC: ~ Signed [facility] Work Phone: Discharge summary 08-15-2023 Note Date & Type Note Facility 08-15-2023 Discharge summary Note Date/Time August 14, 2023 9:13pm [facility] Medical Records Department [address] [place] [address] Emergency Department Summary 08/14/23 MR#: [id number] Acct: [id number] Name: ALMAZ ESTES Jazmine Rep #:[id number] : 1975 48 From: Davonte England PCP: Care Physician,No Primary Status :ADM IN Location: [place] [address] HPI History of Present Illness Chief Complaint: Substance Abuse Informant: patient Narrative Narrative: Presents requesting detox from fentanyl. Has been using this for years. Relapse in 2019 uses almost daily multiple times a day. Last use this morning. Will have withdrawal symptoms with cramps and sweats. Currently denies any other symptoms. 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 His last rehab was 2018. Denies alcohol denies any other recreational drugs. He is IV drug user and denies any serious infections in the past. Prior similar symptoms: Yes PFSH PFSH Medical History Anxiety and depression Irritable bowel syndrome IV drug abuse Polysubstance abuse Tobacco use Home Medications NK 08/15/21 [History Last Taken Unknown] Allergy/AdvReac Type Severity Reaction Status Date / Time No Known Allergies Allergy Verified 08/14/23 20:52 Family History (Updated 08/14/23 @ 22:[address] Carmita Spann MD) Mother Rheumatoid arthritis Diabetes Father CAD (coronary artery disease) Heart disease Hypertension Myocardial infarction Surgical History History of dental surgery Social History (Updated 08/14/23 @ 22:[address] Carmita Spann MD) household members: family Smoking Status: Current every day smoker tobacco type: cigarettes Smoking packsper day: 1 Smoking cigarettes per day: 20.0 alcohol intake: former details: Used to remotely drink more heavy, currently rare intake. substance use type: heroin, opiates, IV drugs and methamphetamine ROS ROS ED Constitutional Constitutional ED: Denies chills, fever(s) or sweats Eyes Eyes: Denies change in vision ENT ENT ED: Denies dysphagia or sore throat Cardiovascular Cardiovascular: Denies chest pain, leg edema, palpitations or racing heartbeat Respiratory/Chest Respiratory/Chest: Denies cough, dyspnea or dyspnea on exertion Gastrointestinal Gastrointestinal: Denies abdominal pain, diarrhea, nausea or vomiting Genitourinary Genitourinary ED: Denies dysuria, hematuria or urinary frequency Musculoskeletal Musculoskeletal: Denies back pain, extremity pain or neck pain Integumentary Denies rash or wounds Neurologic Neurologic: Denies headache(s), paresthesias or weakness EXAM Physical Exam Const Vital Signs: 08/14/23 20:51 08/14/23 21:07 Temperature 97.6 F L Temperature Source Temporal Pulse Rate 115 H 111 H Respiratory Rate 18 18 Blood Pressure 134/87 H 128/90 H Blood Pressure Mean 102 102 Pulse Ox 99 97 Oxygen Delivery Method Room Air Room Air Positive well nourished and well developed General Appearance ED: well developed and NAD HEENT Reports moist mucous membranes normocephalic and atraumatic Eyes PERRL, EOMs intact bilaterally and conjunctivae normal General Eye ED: Yes normal appearance of both eyes Neck no lymphadenopathy and supple General: Negative for tenderness Chest Wall Chest: Negative for tenderness Resp normal respiratory effort and normal air movement Effort and Inspection: symmetric chest movement; Negative for respiratory distress Cardio regular rhythm and no murmurs Rate: tachycardic Peripheral Pulses: pulses 2+ throughout GI normal to inspection, nondistended, normoactive bowel sounds and non-tender Palpation: Negative for guarding or rebound tenderness present Back/Spine no CVA tenderness and no thoracic nor lumbar tenderness Extremity normal to inspection General Extremety ED: Negative for edema or tenderness General Extremity: Negative for edema Neuro oriented x3 and no sensory deficits noted Sensorium / Orientation: awake and alert Skin Skin Narrative: Multiple puncture IV sticks right forearm, no surrounding erythema or drainage. MDM MDM MDM Narrative Medical decision making narrative: Interventions / MDM: Differential diagnosis: Opioid dependence, opiate withdrawal, IV drug user Diagnosis considered but do not suspect: N/A My EKG interpretation: N/A Imaging independently reviewed and interpreted by myself: N/A External documents reviewed: N/A Test considered but not ordered:N/A ED course: Patient nontoxic no active symptoms. No infections from IV punctures. Medical labs will be obtained. Will discuss with hospitalist for admission. Patient labs are stable alcohol negative. His talk screen was pending. I discussed with hospitalist Dr. Spann for admission. After admission toxicology screen returning positive for cocaine, amphetamines, ecstasy. Re-evaluation: stable Disposition discussed with patient/family/significant other: Patient Case discussed with consulting clinician: Hospitalist This note was generated with [employer] dictation software. It may contain incorrectwords, spelling, and punctuation that were not noted in checking the note beforesigning. Lab Data Attestation: I reviewed the patient's lab results. Labs: Laboratory Results - last 24 hr 08/14/23 08/14/23 21:14 22:00 WBC 7.7 RBC 4.98 Hgb 14.5 Hct 42.3 MCV 84.9 MCH 29.1 MCHC 34.3 RDW Std Deviation 39.0 RDW Coeff of Jorge 12.6 Plt Count 286 MPV 8.6 Immature Gran % (Auto) 0.300 Neut % (Auto) 56.6 Lymph % (Auto) 29.3 [place] % (Auto) 8.2 Eos % (Auto) 4.8 Baso % (Auto) 0.8 Absolute Neuts (auto) 4.4 Absolute Lymphs (auto) 2.25 Nucleated RBC % 0 Sodium 142 Potassium 3.6 Chloride 108 H Carbon Dioxide 27.0 Anion Gap 7 BUN 16 Creatinine 0.95 Estim Creat Clear Calc 98.37 Est GFR (MDRD) Af Amer 109 Est GFR (MDRD) Non-Af 90 BUN/Creatinine Ratio 16.8 Glucose 109 H Calcium 9.1 Total Bilirubin 0.50 AST 18 ALT 24 Alkaline Phosphatase 83 Total Protein 7.8 Albumin 3.7 Globulin 4.1 Albumin/Globulin Ratio 0.9 Urine Opiates Screen NEGATIVE Urine Methadone Screen NEGATIVE Ur Barbiturates Screen NEGATIVE Ur Phencyclidine Scrn NEGATIVE Ur Amphetamines Screen POSITIVE H MDMA (Ecstasy) Screen POSITIVE H U Benzodiazepines Scrn NEGATIVE Urine Cocaine Screen POSITIVE H U Cannabinoids Screen NEGATIVE Ur Drug Screen Comment Ethyl Alcohol < 3.0 Discharge Plan Dx/Rx/DC Orders Clinical Impression: Opioid withdrawal, Opioid dependence, Intravenous drug user Disposition Disposition: Acute Care Hospital [facility] Discharge Date/Time: 08/14/23 23:00 What to do if you have Problems For any increased pain, shortness of breath, bleeding, nausea or vomiting, chestpain, or any unexpected problems, contact your Primary Care Provider. Call [facility] ([phone]) or report to the closest Emergency Room. Call 911 if necessary. 08/15/23 0035 <Electronically signed by Davonte England> Cosigner Signature (if applicable): CC: No Primary Care Physician ~ Signed [facility] Work Phone: History and physical note 08-15-2023 Note Date & Type Note Facility 08-15-2023 History and physi ravi note Note Date/Time August 14, 2023 10:28pm [facility] Medical Records Department [address] [place] [address] H&P Exam - Hospitalist 08/14/237 MR#: [id number] Acct: [id number] Name: ALMAZ ESTES Rep #:[id number] : 1975 48 From: Carmita Spann MD PCP: Care Physician,No Primary Status :ADM IN Location: [facility] [id number] HPI - General General Date of Admission: 08/14/23 Date of Service: 08/14/23 Chief Complaint: Acute Opiate Withdrawal HPI Narrative The patient is a 48 y/o M w/ PMHx: Prior diagnosis Anxiety/Depression but patient believes it was misdiagnosis in his youth, Tobacco use, Polysubstance use (Prior Heroin/Meth, currently IV Fentanyl 1/2 gm daily, started using again 2020 has been clean on suboxone prior) who presents to the [facility] ED on 08/14/23 w/ noted acute opiate withdrawal onset starting this evening following last dose ofFentanyl at ~ 11 am-noon on day of presentation with abdominal cramping, generalized body aches and pains, rhinorrhea, fatigue, restless leg, mild diaphoresis. Patient interested in attaining clean status. Workup in the ED included T97.6, heart rate 115, BP 134/87, respiratory rate 18, 99% on room air,CBC with WBC 7.7, hemoglobin 14.5, platelet 286 without marked shift, CMP with chloride 108, glucose 109 otherwise unremarkable, UDS with positive amphetamine,MDMA, cocaine, ethyl alcohol less than 3. [facility] Medical History Anxiety and depression Irritable bowel syndrome IV drug abuse Polysubstance abuse Tobacco use Home Medications NK 08/15/21 [History Last Taken Unknown] Allergy/AdvReac Type Severity Reaction Status Date / Time No Known Allergies Allergy Verified 08/14/23 20:52 Family History (Updated 08/14/23 @ 22:[address] Carmita Spann MD) Mother Rheumatoid arthritis Diabetes Father CAD (coronary artery disease) Heart disease Hypertension Myocardial infarction Surgical History (Updated 08/14/23 @ 22:[address] Carmita Spann MD) History of dental surgery Social History (Updated 08/14/23 @ 22:[address] Carmita Spann MD) household members: family Smoking Status: Current every day smoker tobacco type: cigarettes Smoking packsper day: 1 Smoking cigarettes per day: 20.0 alcohol intake: former details: Used to remotely drink more heavy, currently rare intake. substance use type: heroin, opiates, IV drugs and methamphetamine ROS ROS Narrative Admission Review of Systems: CONSTITUTIONAL: No weight loss, fever, chills, + weakness or fatigue. HEENT: + Rhinorrhea, congestion. Eyes: No visual loss, blurred vision, double vision or yellow sclerae. Ears, Nose, Throat: No hearing loss, sneezing. SKIN: No rash or itching, lesions, wounds. CARDIOVASCULAR: No chest pain, chest pressure or chest discomfort, palpitations,edema, orthopnea, syncopal events. RESPIRATORY: No shortness of breath, cough or sputum, wheezing, hemoptysis. GASTROINTESTINAL: + anorexia, mild abdominal cramping, nausea. No emesis, abdominal pain, melena, BRBPR. GENITOURINARY: No dysuria, frequency, urgency or retention. NEUROLOGICAL: No headache, dizziness, syncope, paralysis, ataxia, numbness or tingling in the extremities, focal weakness, change in bowel or bladder control,seizure. MUSCULOSKELETAL: + muscle, back pain, joint pain or stiffness. HEMATOLOGIC: No anemia, bleeding or bruising. LYMPHATICS: No enlarged nodes. No history of splenectomy. PSYCHIATRIC: + Prior diagnosis of anxiety and depression, denied per patient. ENDOCRINOLOGIC: + reports of sweating, cold or heat intolerance. No polyuria or polydipsia. ALLERGIES: No history of asthma, hives, eczema or rhinitis. Vital Signs Vital Signs Vital Signs: 08/14/23 20:51 08/14/23 21:07 Temperature 97.6 F L Temperature Source Temporal Pulse Rate 115 H 111 H Respiratory Rate 18 18 Blood Pressure 134/87 H 128/90 H Blood Pressure Mean 102 102 Pulse Ox 99 97 Oxygen Delivery Method Room Air Room Air Weight Weight: 180 lb 3 oz Body Mass Index (BMI) 28.2 Physical Exam Narrative Physical Examination: General: Awake, alert, oriented x 3 and cooperative, seated upright in the ED bed, fatigued, yawning, restless. Skin: Normal color, normal turgor, no icterus, no cyanosis except various tattoos, staged ecchymoses. HEENT: AT/NC, EOMI, PERRLA, dry MM, no carotid bruits or JVD noted. Lungs: CTA bilaterally, moderate effort, mild decrease BL bases, no rales, ronchi or wheezing. Heart: Tachycardic with regular rhythm; no gallop, rub audible. Abdomen: Soft, mild generalized discomfort but no rebound or guarding, ND, hyperactive BS, no appreciated HSM. Extremities: No cyanosis, clubbing, or edema. Neurological: Patient awake, alert, oriented as noted, cognitive function intact; pupils equally reactive to light and accommodation, cranial nerves grossly normal, moving all 4 extremities, no focal deficits, strength moderatelyglobally decreased given withdrawal symptoms, restless. Psychiatric: Affect appears fatigued, restless, no acute evidence of depressive or anxiety feelings but does report a remote history but reports feeling this was a misdiagnosis. Results Lab / Micro Data 08/14/23 21:14 08/14/23 21:14 Labs: Laboratory Results - last 24 hr 08/14/23 21:14: WBC 7.7, RBC 4.98, Hgb 14.5, Hct 42.3, MCV 84.9, MCH 29.1, MCHC 34.3, RDW Std Deviation 39.0, RDW Coeff of Jorge 12.6, Plt Count 286, MPV 8.6, Immature Gran % (Auto) 0.300, Neut % (Auto) 56.6, Lymph % (Auto) 29.3, [place] % (Auto) 8.2, Eos % (Auto) 4.8, Baso % (Auto) 0.8, Absolute Neuts (auto) 4.4, Absolute Lymphs (auto) 2.25, Nucleated RBC % 0, Sodium 142, Potassium 3.6, Chloride 108 H, Carbon Dioxide 27.0, Anion Gap 7, BUN 16, Creatinine 0.95, EstimCreat Clear Calc 98.37, Est GFR (MDRD) Af Amer 109, Est GFR (MDRD) Non-Af 90, BUN/Creatinine Ratio 16.8, Glucose 109 H, Calcium 9.1, Total Bilirubin 0.50, AST 18, ALT 24, Alkaline Phosphatase 83, Total Protein 7.8, Albumin 3.7, Globulin 4.1, Albumin/Globulin Ratio 0.9, Ethyl Alcohol < 3.0 08/14/23 22:00: Urine Opiates Screen NEGATIVE, Urine Methadone Screen NEGATIVE, Ur Barbiturates Screen NEGATIVE, Ur Phencyclidine Scrn NEGATIVE, Ur AmphetaminesScreen POSITIVE H, MDMA (Ecstasy) Screen POSITIVE H, U Benzodiazepines Scrn NEGATIVE, Urine Cocaine Screen POSITIVE H, U Cannabinoids Screen NEGATIVE, Ur Drug Screen Comment Assessment & Plan Assessment/Plan (1) Opioid withdrawal: PLAN: Plan The patient is a 48 y/o M w/ PMHx: Prior diagnosis Anxiety/Depression but patient believes it was misdiagnosis in his youth, Tobacco use, Polysubstance use (Prior Heroin/Meth, currently IV Fentanyl 1/2 gm daily, started using again 2020 has been clean on suboxone prior) who presents to the [facility] ED on 08/14/23 w/ noted acute opiate withdrawal. #1. Acute Opiate Withdrawal: Will admit to [facility], routine labs including CBC, CMP,urine for drug screen obtained in the ED, will initiate and continue on protocolwith tapering course of Subutex, as needed tylenol, ibuprofen, bowel regimen, gabapentin, Bentyl, Vistaril, methocarbamol, clonidine, PRN nightly trazodone for insomnia, IV fluids, IV antiemetics. Once patient clinically improved and completion of taper nearing will plan consultation with case management for transition to next level of rehabilitation care. #2. Elevated BP without hypertensive diagnosis: BP in the ED with elevated diastolic blood pressure, potentially related with withdrawal, continue to monitor and add regimen if appropriate. #3. Polysubstance Abuse, IVDA: Given ongoing substance abuse with IV drug abusediscussed with patient and will obtain hepatitis panel, HIV and syphilis. #4. Prior diagnoses anxiety/depression: Noted to been diagnosed in his youth, he believes it was a misdiagnosis but given polysubstance abuse certainly could be an underlying diagnosis and encourage continued outpatient evaluation and treatment if appropriate. #5. Tobacco Abuse: Encouraged cessation, inpatient consultation per RT, NR if desired. #6. DVT prophylaxis: Low risk for type of admission. Charges/Coding Visit Charges Inpatient E&M: 08371 Init Hosp L2 08/14/23 2252 <Electronically signed by Carmita Spann MD> Cosigner Signature (if applicable): CC: Dr. Carmita Spann MD; No Primary Care Physician~ Signed [facility] Work Phone: Discharge summary Note Date & Type Note Facility Discharge summary Note Date/Time August 17, 2023 2:35pm [facility] Medical Records Department [address] [place] [address] Instructions for Home/Discharge Instructions 08/17/23 1435 MR#: [id number] Acct: [id number] Name: CHELSIALMAZ Jazmine Rep #:[id number] : 1975 48 From: Anthony sterling DO PCP: Care Physician,No Primary Status :ADM IN Discharge Instructions Diet Discharge Diet: No restrictions Activity Discharge Activity: No Restrictions Follow Up Care Test Results: Test results from this visit will be discussed in further detail at your follow-up appointment, if applicable. Discharge Plan Admission Admit Date/Time: 08/14/23 22:28 Primary Reason for Your Visit: opiate detox Attending Provider: Anthony Villanueva Primary Care Provider: Care Physician,No Primary Consulting Providers: Carmita Spann Discharge Orders/Prescriptions Prescriptions: No Action NK Referrals / Follow Up: Care Physician,No Primary [Primary Care Provider] - Disposition Disposition (needs filled in before D/C Order can be placed): Home, Self Care 08/17/23 1436<Electronically signed by Anthony Villanueva DO>Anthony Villanueva DO CC: Dr. Carmita Spann MD; No Primary Care Physician ~ Signed [facility] Work Phone: Discharge summary Note Date & Type Note Facility Discharge summary Note Date/Time August 17, 2023 2:38pm [facility] Medical Records Department [address] [place] [id number] Discharge Summary 08/17/23 1436 MR#: [id number] Acct: [id number] Name: ALMAZ ESTES Rep #:[id number] : 1975 48 From: Anthony sterling DO PCP: Care Physician,No Primary Status :ADM IN Location: [place] [address] Providers Date of Admission: 08/14/23 Date of Discharge: 08/17/23 Primary Care Physician: No Primary Care Phys Reason For Visit: ACUTE OPIATE WITHDRAWL Diagnosis Discharge Diagnosis (1) Opioid withdrawal: Status: Acute Code(s): F11.93 - Opioid use, unspecified with withdrawal (2) Opioid dependence: Status: Acute Code(s): F11.20 - Opioid dependence, uncomplicated Medications at Discharge Home Medications NK 08/15/21 Hospital Course Operations None Procedures None Summary of Care Provided Minutes Spent on Discharge: 25 Hospital Course: Patient is a 48-year-old male who presented to [facility] ED on 08/14/2023 for opiate detoxification. Hospital course as noted below. Patient discharged home in stable condition on 08/16. 1. Opiate use disorder with acute withdrawal, polysubstance abuse Reported IV fentanyl use daily recently with prior history of heroin and meth abuse. Last used on morning of admission. UDS on admit positive for amphetamines, MDMA, cocaine. Notably negative for opiates but fentanyl does notshow up. Suspect patient's fentanyl was being cut with these other drugs. ? Treated with Subutex taper with other as needed medications per opiate withdrawal order set during hospitalization with good symptom control. Addiction medicine followed. Discharged home with plan for outpatient follow-upwith [facility]. 2. Tobacco abuse ? Encouraged cessation. Nicotine patch provided per patient request while inpatient. Total clinical time spent by myself addressing the patient's medical issues, reviewing all the data, and collaborating with patient's care team: 25 minutes. Physical Exam Const alert and oriented x3 Constitutional Narrative: Middle-age male, lying comfortably in bed, fatigued appearing, otherwise answering questions appropriately and conversing normally. General Appearance: cooperative HEENT normocephalic, head/scalp atraumatic, hearing grossly normal bilaterally and nasal mucous membranes and turbinates normal Eyes PERRL, EOMs intact bilaterally and conjunctivae normal Neck full ROM Chest inspection of chest normal Resp normal respiratory effort, normal air movement, no use of accessory muscles and clear to auscultation bilaterally Cardio regular rate, regular rhythm, no murmurs and peripheral pulses 2+ throughout GI normal to inspection, nondistended, normoactive bowel sounds, soft to palpation,non-tender and non-distended Back/Spine normal ROM Extremity normal to inspection, full ROM and no pedal edema Skin no rashes or lesions noted Neuro moves all extremities and no focal motor deficits Speech: speech normal Psych mental status grossly normal Mood & Affect: anxious Weight / BMI Weight Weight: 82.372 kg Body Mass Index (BMI) 28.4 ABG / Lab / Microbiology Data 08/14/23 21:14 08/14/23 21:14 D/C Instructions Discharge Diet: No restrictions Meaningful Use Info Meaningful Use Meaningful Use Diagnoses (Choose all that apply): None applicable Ischemic Stroke Statin Dosing Therapy Reference: STATIN DOSE THERAPY REFERENCE: * Patients > 75 years receive moderate or high dose statin therapy. * Patients 75 years or YOUNGER should receive HIGH intensity statin dose unless contraindicated. You will be required to document reason for non-treatment if statin daily dose does not meet guidelines. HIGH DOSE STATIN THERAPY DAILY Atorvastatin > than or = to 40 mg Rosuvastatin > than or = to 20 mg Amlodipine + Atorvastatin > than or = to 2.5/40 mg Ezetimibe + Simvastatin 10/80 mg Simvastatin 80mg Discharge Plan Admission Admit Date/Time: 08/14/23 22:28 Primary Reason for Your Visit: opiate detox Attending Provider: Anthony Villanueva Primary Care Provider: Care Physician,No Primary Consulting Providers: Carmita Spann Discharge Orders/Prescriptions Prescriptions: No Action NK Referrals / Follow Up: Care Physician,No Primary [Primary Care Provider] - Disposition Disposition (needs filled in before D/C Order can be placed): Home, Self Care Charges/Coding Visit Charges Inpatient E&M: 04318 Disch Hosp 08/17/23 1437 <Electronically signed by Anthony Villanueva DO> Cosigner Signature (if applicable): CC: Dr. Anthony Villanueva DO; No Primary Care Physician~ Signed [facility] Work Phone: Evaluation note Note Date & Type Note Facility Evaluation note Diagnosis Onset Date Intravenous drug user acute Opioid dependence acute Opioid withdrawal acute [facility] Work Phone: History and physical note Note Date & Type Note Facility History and physical note Note Date/Time August 14, 2023 10:28pm [facility] Medical Records Department [address] [place] [address] H&P Exam - Hospitalist 08/14/232226 MR#: [id number] Acct: [id number] Name: ALMAZ ESTES Rep #:[id number] : 1975 48 From: Carmita Spann MD PCP: Care Physician,No Primary Status :ADM IN Location: [facility] [id number] HPI - General General Date of Admission: 08/14/23 Date of Service: 08/14/23 Chief Complaint: Acute Opiate Withdrawal HPI Narrative The patient is a 48 y/o M w/ PMHx: Prior diagnosis Anxiety/Depression but patient believes it was misdiagnosis in his youth, Tobacco use, Polysubstance use (Prior Heroin/Meth, currently IV Fentanyl 1/2 gm daily, started using again 2020 has been clean on suboxone prior) who presents to the [facility] ED on 08/14/23 w/ noted acute opiate withdrawal onset starting this evening following last dose ofFentanyl at ~ 11 am-noon on day of presentation with abdominal cramping, generalized body aches and pains, rhinorrhea, fatigue, restless leg, mild diaphoresis. Patient interested in attaining clean status. Workup in the ED included T97.6, heart rate 115, BP 134/87, respiratory rate 18, 99% on room air,CBC with WBC 7.7, hemoglobin 14.5, platelet 286 without marked shift, CMP with chloride 108, glucose 109 otherwise unremarkable, UDS with positive amphetamine,MDMA, cocaine, ethyl alcohol less than 3. PFSH Medical History Anxiety and depression Irritable bowel syndrome IV drug abuse Polysubstance abuse Tobacco use Home Medications NK 08/15/21 [History Last Taken Unknown] Allergy/AdvReac Type Severity Reaction Status Date / Time No Known Allergies Allergy Verified 08/14/23 20:52 Family History (Updated 08/14/23 @ 22:[address] Carmita Spann MD) Mother Rheumatoid arthritis Diabetes Father CAD (coronary artery disease) Heart disease Hypertension Myocardial infarction Surgical History (Updated 08/14/23 @ 22:[address] Carmita Spann MD) History of dental surgery Social History (Updated 08/14/23 @ 22:[address] Carmita Spann MD) household members: family Smoking Status: Current every day smoker tobacco type: cigarettes Smoking packsper day: 1 Smoking cigarettes per day: 20.0 alcohol intake: former details: Used to remotely drink more heavy, currently rare intake. substance use type: heroin, opiates, IV drugs and methamphetamine ROS ROS Narrative Admission Review of Systems: CONSTITUTIONAL: No weight loss, fever, chills, + weakness or fatigue. HEENT: + Rhinorrhea, congestion. Eyes: No visual loss, blurred vision, double vision or yellow sclerae. Ears, Nose, Throat: No hearing loss, sneezing. SKIN: No rash or itching, lesions, wounds. CARDIOVASCULAR: No chest pain, chest pressure or chest discomfort, palpitations,edema, orthopnea, syncopal events. RESPIRATORY: No shortness of breath, cough or sputum, wheezing, hemoptysis. GASTROINTESTINAL: + anorexia, mild abdominal cramping, nausea. No emesis, abdominal pain, melena, BRBPR. GENITOURINARY: No dysuria, frequency, urgency or retention. NEUROLOGICAL: No headache, dizziness, syncope, paralysis, ataxia, numbness or tingling in the extremities, focal weakness, change in bowel or bladder control,seizure. MUSCULOSKELETAL: + muscle, back pain, joint pain or stiffness. HEMATOLOGIC: No anemia, bleeding or bruising. LYMPHATICS: No enlarged nodes. No history of splenectomy. PSYCHIATRIC: + Prior diagnosis of anxiety and depression, denied per patient. ENDOCRINOLOGIC: + reports of sweating, cold or heat intolerance. No polyuria or polydipsia. ALLERGIES: No history of asthma, hives, eczema or rhinitis. Vital Signs Vital Signs Vital Signs: 08/14/23 20:51 08/14/23 21:07 Temperature 97.6 F L Temperature Source Temporal Pulse Rate 115 H 111 H Respiratory Rate 18 18 Blood Pressure 134/87 H 128/90 H Blood Pressure Mean 102 102 Pulse Ox 99 97 Oxygen Delivery Method Room Air Room Air Weight Weight: 180 lb 3 oz Body Mass Index (BMI) 28.2 Physical Exam Narrative Physical Examination: General: Awake, alert, oriented x 3 and cooperative, seated upright in the ED bed, fatigued, yawning, restless. Skin: Normal color, normal turgor, no icterus, no cyanosis except various tattoos, staged ecchymoses. HEENT: AT/NC, EOMI, PERRLA, dry MM, no carotid bruits or JVD noted. Lungs: CTA bilaterally, moderate effort, mild decrease BL bases, no rales, ronchi or wheezing. Heart: Tachycardic with regular rhythm; no gallop, rub audible. Abdomen: Soft, mild generalized discomfort but no rebound or guarding, ND, hyperactive BS, no appreciated HSM. Extremities: No cyanosis, clubbing, or edema. Neurological: Patient awake, alert, oriented as noted, cognitive function intact; pupils equally reactive to light and accommodation, cranial nerves grossly normal, moving all 4 extremities, no focal deficits, strength moderatelyglobally decreased given withdrawal symptoms, restless. Psychiatric: Affect appears fatigued, restless, no acute evidence of depressive or anxiety feelings but does report a remote history but reports feeling this was a misdiagnosis. Results Lab / Micro Data 08/14/23 21:14 08/14/23 21:14 Labs: Laboratory Results - last 24 hr 08/14/23 21:14: WBC 7.7, RBC 4.98, Hgb 14.5, Hct 42.3, MCV 84.9, MCH 29.1, MCHC 34.3, RDW Std Deviation 39.0, RDW Coeff of Jorge 12.6, Plt Count 286, MPV 8.6, Immature Gran % (Auto) 0.300, Neut % (Auto) 56.6, Lymph % (Auto) 29.3, [place] % (Auto) 8.2, Eos % (Auto) 4.8, Baso % (Auto) 0.8, Absolute Neuts (auto) 4.4, Absolute Lymphs (auto) 2.25, Nucleated RBC % 0, Sodium 142, Potassium 3.6, Chloride 108 H, Carbon Dioxide 27.0, Anion Gap 7, BUN 16, Creatinine 0.95, EstimCreat Clear Calc 98.37, Est GFR (MDRD) Af Amer 109, Est GFR (MDRD) Non-Af 90, BUN/Creatinine Ratio 16.8, Glucose 109 H, Calcium 9.1, Total Bilirubin 0.50, AST 18, ALT 24, Alkaline Phosphatase 83, Total Protein 7.8, Albumin 3.7, Globulin 4.1, Albumin/Globulin Ratio 0.9, Ethyl Alcohol < 3.0 08/14/23 22:00: Urine Opiates Screen NEGATIVE, Urine Methadone Screen NEGATIVE, Ur Barbiturates Screen NEGATIVE, Ur Phencyclidine Scrn NEGATIVE, Ur AmphetaminesScreen POSITIVE H, MDMA (Ecstasy) Screen POSITIVE H, U Benzodiazepines Scrn NEGATIVE, Urine Cocaine Screen POSITIVE H, U Cannabinoids Screen NEGATIVE, Ur Drug Screen Comment Assessment & Plan Assessment/Plan (1) Opioid withdrawal: PLAN: Plan The patient is a 48 y/o M w/ PMHx: Prior diagnosis Anxiety/Depression but patient believes it was misdiagnosis in his youth, Tobacco use, Polysubstance use (Prior Heroin/Meth, currently IV Fentanyl 1/2 gm daily, started using again 2020 has been clean on suboxone prior) who presents to the [facility] ED on 08/14/23 w/ noted acute opiate withdrawal. #1. Acute Opiate Withdrawal: Will admit to [facility], routine labs including CBC, CMP,urine for drug screen obtained in the ED, will initiate and continue on protocolwith tapering course of Subutex, as needed tylenol, ibuprofen, bowel regimen, gabapentin, Bentyl, Vistaril, methocarbamol, clonidine, PRN nightly trazodone for insomnia, IV fluids, IV antiemetics. Once patient clinically improved and completion of taper nearing will plan consultation with case management for transition to next level of rehabilitation care. #2. Elevated BP without hypertensive diagnosis: BP in the ED with elevated diastolic blood pressure, potentially related with withdrawal, continue to monitor and add regimen if appropriate. #3. Polysubstance Abuse, IVDA: Given ongoing substance abuse with IV drug abusediscussed with patient and will obtain hepatitis panel, HIV and syphilis. #4. Prior diagnoses anxiety/depression: Noted to been diagnosed in his youth, he believes it was a misdiagnosis but given polysubstance abuse certainly could be an underlying diagnosis and encourage continued outpatient evaluation and treatment if appropriate. #5. Tobacco Abuse: Encouraged cessation, inpatient consultation per RT, NR if desired. #6. DVT prophylaxis: Low risk for type of admission. Charges/Coding Visit Charges Inpatient E&M: 57346 Init Hosp L2 08/14/23 2257 <Electronically signed by Carmita Spann MD> Cosigner Signature (if applicable): CC: Dr. Carmita Spann MD; No Primary Care Physician~ Signed [facility] Work Phone: Summary Purpose Family History No Family History Records Found Relationship Condition Age at Onset Recorded Date/T gurpreet mother Rheumatoid arthritis Unknown Diabetes mellitus Unknown father Coronary artery disease Unknown Cardiac disease Unknown Hypertension Unknown Myocardial infarction Unknown Advance Directives No Advanced Directives Records Found Advance Directive Response Recorded Date/ Time Advance Directives No November 21, 2013 10:18pm Living Will No August 14, 2023 9: 04pm Power of Sports Anchor No August 14, 2023 9:04pm Advance Directive Response Recorded Date/ Time Advance Directives No November 21, 2013 10:18pm Living Will No August 14, 2023 11 :37pm Power of Sports Anchor No August 14, 2023 11:37pm Chief Complaint and Reason for Visit Chief Complaint ACUTE OPIATE WITHDRA WL Reason for Visit Intravenous drug use r Opioid dependence Opioid withdrawal Chief Complaint ACUTE OPIATE WITHDRA WL ACUTE OPIATE WITHDRAWL ACUTE OPIATE WITHDRAWL ACUTE OPIATE WITHDRAWL Reason for Visit Intravenous drug use r Opioid dependence Opioid withdrawal Additional Source Comments (unrecognized sect ion and content) No Status Records FoundNo Status Records FoundNo Status Records Found INFORMATION SOURCE (unrecogn ized section and content) DATE CREATED AUTHOR 09/30/2017 [facility] DATE CREATED AUTHOR AUTHOR'S ORGANIZ ATION 10/06/2017 [facility] DATE CREATED AUTHOR AUTHOR'S ORGANIZ ATION 11/29/2023 [facility] Care Teams (unrecognized sec tion and content) Team Status: Active Member Role Status Dates No Primary Care Physician Family Provider Active No Primary Care Physician Primary Care Provider Active Team Status: Active Member Role Status Dates No Primary Care Physician Primary Care Provider Active Dr. Davonte Cole , DO Emergency Provider Active Dr. Carmita Spann MD Admit Provider, Attending Prov ider Active Team Status: Active Member Role Status Dates No Primary Care Physician Primary Care Provider Active Dr. Davonte Cole , Emergency Provider Active Dr. Carmita Spann MD Admit Provider, Other Provider Active Dr. Anthony Villanueva , Attending Provider, Other Provider Active Team Status: Inactive Member Role Status Dates No Primary Care Physician Primary Care Provider Active Dr. Davonte Cole , Emergency Provider Active Dr. Carmita Spann MD Admit Provider, Other Provider Active Dr. Anthony Villanueva , DO Attending Provider Active Goals (unrecognized section and content) Goals may be documented in a n alternate section FOR RECORDS PERTAINING TO PATIENTS WHO ARE OR HAVE BEEN ENROLLED IN A CHEMICAL DEPENDENCY/SUBSTANCEABUSE PROGRAM, SOME INFORMATION MAY BE OMITTED. This clinical summary was aggregated from multiple sources. Caution should be exercised in using it in the provision of clinical care. This summary normalizes information from multiple sources, and as a consequence, information in this document may materially change the coding, format and clinical context of patient data. In addition, data may be omitted in some cases. CLINICAL DECISIONS SHOULD BE BASED ON THE PRIMARY CLINICAL RECORDS. [employer] provides no warranty or guarantee of the accuracy or completeness of information in this document.
== END 2024-12-31 18:54 | disposition left against medical advice (07) ==
LOC: ED 19:04
DX: Z53.21 Procedure and treatment not carried out due to patient leaving prior to being seen by health care provider (principal)

== ENCOUNTER 2025-01-01 15:25 | Emergency (ER) | payer BC, MEDICAID, SELFPAY ==
[2025-01-01 15:27] VITALS: BP 161/147; PULSE 91; RESP 16; TEMP 36.9; O2SAT 100; BMI 35.9
--- NOTE | 2025-01-01 16:20 | CM.ED ---
Social Work Date of referral: 01/01/2025 Reason for referral: No primary care physician (PCP) on file. Referred by: Social Work Identification Patient provided consent for social work visit. Teen Counselor provided a written handout to the [facility] which patient accepted and expressed appreciation for. Martha Doran, FARM EQUIPMENT MAINTENANCE SUPERVISOR, CERNER ANALYST
--- NOTE | 2025-01-01 16:33 | RAD_ITS ---
PROCEDURE: CHEST PA AND LATERAL 01/01/2025 REASON FOR EXAM: ORTHOPNEA AND EDEMA TECHNIQUE: Procedure Code: RADCXR Modality: DX Procedure: CHEST PA AND LATERAL COMPARISON: Chest x-ray August 16, 2021. Prior report is not available. FINDINGS: Lungs: The right hemidiaphragm is slightly elevated compared to the left of indeterminate significance. Lung volumes are low, particularly the right. There is no consolidation. Mildly coarsened reticular lung markings noted likely secondary to chronic interstitial change. There is no peribronchial thickening. There is no pulmonary vascular redistribution. Pleura: No significant pleural effusion seen. There is no evidence of pneumothorax. Mediastinum: There is no mediastinal widening or mediastinal shift. Heart: The cardiac silhouette is not enlarged. Kerrie: The pulmonary kerrie are not enlarged or retracted. Osseous: No acute fracture is seen. RAD/Chest PA and Lateral IMPRESSION: No radiographic evidence of an acute pulmonary infiltrate. - Other findings discussed above. Reading Location: [id number]
--- NOTE | 2025-01-01 16:33 | EKG12_ITS ---
Test Reason : Blood Pressure : */* mmHG Vent. Rate : 77 BPM Atrial Rate : 77 BPM P-R Int : 134 ms QRS Dur : 90 ms QT Int : 354 ms P-R-T Axes : 20 12 17 degrees QTcB Int : 400 ms Normal sinus rhythm with sinus arrhythmia Normal ECG Confirmed by NIKITA STEVENS, CHRISSIE ([id number]), writer editor AMI FLORES ([id number]) on 01/03/2025 8:29:52 AM Referred By: Confirmed By: CHRISSIE SHELTON MD
--- OUTSIDE RECORDS SUMMARY | 2025-01-01 16:53 | XMS RPT_ITS | CCD ---
Author Organization [facility] Care Team Providers Care Elevator Dispatcher Name Role Phone PROVIDER, UNKNOWN Unavailable Unavailable Marisa, PCP Unavailable Unavailable Almaz Cagle Unavailable Unavailable ADRIENNE RICHEY ([place]) Unavailable Unavailable TOM MADRID Unavailable Unavailable Care Physician, No Primary Primary Care Provider Unavailable Dr. Davonte Cole Emergency Provider Dr. Carmita Spann Admit Provider [phone] Carmita Spann Other Provider [phone] Anthony Villanueva Attending Provider Dr. Anthony Villanueva Other Provider [phone] Carmita Spann Consulting Unavailable Anthony Villanueva Attending [...] Reference Range Facility Discharge Instructionon Discharge Instruction [facility] Medical Records Department [address] [place] [address] Instructions for Home/Discharge Instructions 08/17/23 1435 MR#: [id number] Acct: [id number] Name: ALMAZ ESTES Rep #: [id number] : 1975 48 From: Anthony Villanueva DO [...] MD; No Primary Care Physician Signed Normal [facility] HIV - WCHon 08-15-2023 HIV Non-Reactive Normal Nonreactive [facility] Comment on above: Order Comment: Reaso n for Exam: substance abuse Reason for Exam: Hepatitis Screen Performed By: #### L 3890.6200, L3890.6005, L3890.6300, L509.8000, L3890.6100 #### [facility] [address] [place], [address] HIV 1 and HIV-2 antibody ass ay with HIV-1 p24 antigen detectionOrdered By: Carmita Spann on 08-15-2023 HIV 1+2 Ab+HIV1 p24 Ag IA Ql Non-Reactive Nonreactive [facility] Hepatitis B Surface Antibody on 08-15-2023 HEP B Surf Ab Reactive Normal [facility] Comment on above: Order Comment: Reaso n for Exam: substance abuse Reason for Exam: Hepatitis Screen Result Comment: Non Reactive: Inconsistent with immunity less than <10 mIU/mL Reactive: Consistent with immunity greater than or equal to 10 mIU/mL Performed By: #### L 3890.6200, L3890.6005, L3890.6300, L509.8000, L3890.6100 #### [facility] [address] [place], [place], [address] Hepatitis B Surface Antigeno n 08-15-2023 HEP B Surf Ag Non-Reactive Normal Nonreactive [facility] Comment on above: Order Comment: Reaso n for Exam: substance abuse Reason for Exam: Hepatitis Screen Performed By: #### L 3890.6200, L3890.6005, L3890.6300, L509.8000, L3890.6100 #### [facility] [address] [place], [place], [address] Hepatitis C Antibodyon 08-14 Hepatitis C AB Non-Reactive Normal Nonreactive [facility] Comment on above: Order Comment: Reaso n for Exam: substance abuse Reason for Exam: Hepatitis Screen Result Comment: Non Reactive: < 0.8 Equivocal: >/= 0.8 to < 1.0 Reactive: >/= 1.0 The CDC requires that a reactive/equivocal HCV antibody result be sent out for confirmation. HCV Quant by PCR testing. Performed By: #### L 3890.6200, L3890.6005, L3890.6300, L509.8000, L3890.6100 #### [facility] [address] [place], [place], [address] L509.8000on 08-15-2023 Syphilis Abs Non-Reactive Normal [facility] Comment on above: Order Comment: Reaso n for Exam: substance abuse Reason for Exam: Hepatitis Screen Performed By: #### L 3890.6200, L3890.6005, L3890.6300, L509.8000, L3890.6100 #### [facility] [address] [place], [place], [address] No Panel InformationOrdered By: Carmita Spann on 08-15-2023 Hepatitis B Surface Antigen Non-Reactive Nonreactive [facility] Hepatitis C Antibody Non-Reactive Nonreactive [facility] Comment on above: Non Reactive: < 0.8 Equivocal: >/= 0.8 to < 1.0 Reactive: >/= 1.0The [facility] requires that a reactive/equivocal HCV antibody result be sent out for confirmation. HCV Quant by PCR testing. Serum Treponema species anti body detectionOrdered By: Carmita Spann on 08-15-2023 Treponema sp Ab Ql (S) Non-Reactive [facility] Serum hepatitis B virus surf rudy antibody IgG detectionOrdered By: Carmita Spann on 08-15-2023 HBV surface IgG Ql (S) Reactive [facility] Comment on above: Non Reactive: Incons istent with immunity less than <10 mIU/mL Reactive: Consistent with immunity greater than or equal to 10 mIU/mL Absolute lymphocyte countOrd ered By: Davonte Cole on 08-14-2023 Lymphocytes Auto (Unsp spec) [#/Vol] 2.25 10*3/uL 0.83-4.51 [facility] Alcohol, Blood (Medical)-Ser umon 08-14-2023 SERUM ETOH < 3.0 Normal [facility] Comment on above: Result Comment: The serum:whole blood ethanol ratio is approximately 1.14 and varies slightly with hematocrit. Medical Alcohol reference interval and critical value in non-tolerant individuals; 50 - 100 Impairment 100 Intoxication 100 - 250 Severe Poisoning 250 - 400 Deep/possible fatal coma Performed By: #### L 505.5000, L500.4050, L501.9100, L100.0100 #### [facility] [address] [place], [place], [address] Automated lymphocyte count a s percentage of total leukocytesOrdered By: Davonte Cole on 08-14-2023 Lymphocytes/100 WBC Auto (Unsp spec) 29.3 % 19-41 [facility] Basophil percentageOrdered B y: Davonte Cole on 08-14-2023 Basophils/100 WBC (Bld) 0.8 % 0-1 [facility] Bilirubin [Mass/Vol] 0.50 mg/dL 0.20-1.00 [facility] Comment on above: For patients on eltr ombopag therapy, use of Dimension [place] TBIL is not recommended. Chloride [Moles/Vol] 108 mmol/L 98-107 [facility] Eosinophils/100 WBC (Bld) 4.8 % 0-5 [facility] Glucose [Mass/Vol] 109 mg/dL 74-106 [facility] Comment on above: Fasting Glucose resu lt from 100 to 125 mg/dL suggests IMPAIRED HOMEOSTASIS per A.D.A. criteria. Hemoglobin (Bld) [Mass/Vol] 14.5 g/dL 13.0-16.5 [facility] Monocytes/100 WBC (Bld) 8.2 % 0-10 [facility] Neutrophils (Bld) [#/Vol] 4.4 10*3/uL 2.0-7.7 [facility] Neutrophils/100 WBC (Bld) 56.6 % 47-70 [facility] Potassium [Moles/Vol] 3.6 mmol/L 3.5-5.1 [facility] Protein [Mass/Vol] 7.8 g/dL 6.4-8.2 [facility] Sodium [Moles/Vol] 142 mmol/L 136-145 [facility] WBC (Bld) [#/Vol] 7.7 10*3/uL 4.4-11.0 [facility] CBC W/Diff, Automatedon 05-0 Absolute Lymph 2.25 X10 3/uL Normal 0.83-4.51 [facility] Comment on above: Performed By: #### L 505.5000, L500.4050, L501.9100, L100.0100 #### [facility] [address] [place], [address] Absolute Neut 4.4 X10 3/uL Normal 2.0-7.7 [facility] Comment on above: Performed By: #### L 505.5000, L500.4050, L501.9100, L100.0100 #### [facility] [address] [place], [address] Basophils/100 WBC (Bld) 0.8 % Normal 0-1 [facility] Comment on above: Performed By: #### L 505.5000, L500.4050, L501.9100, L100.0100 #### [facility] [address] [place], [address] Eosinophils/100 WBC (Bld) 4.8 % Normal 0-5 [facility] Comment on above: Performed By: #### L 505.5000, L500.4050, L501.9100, L100.0100 #### [facility] [address] [place], [address] Erythrocyte distribution width (RBC) [Ratio] 12.6 % Normal 11.6-14.6 [facility] Comment on above: Performed By: #### L 505.5000, L500.4050, L501.9100, L100.0100 #### [facility] [address] [place], [address] Hematocrit (Bld) [Volume fraction] 42.3 % Normal 40-54 [facility] Comment on above: Performed By: #### L 505.5000, L500.4050, L501.9100, L100.0100 #### [facility] [address] [place], [address] Hemoglobin (Bld) [Mass/Vol] 14.5 g/dL Normal 13.0-16.5 [facility] Comment on above: Performed By: #### L 505.5000, L500.4050, L501.9100, L100.0100 #### [facility] [address] [place], [address] IG% 0.300 Normal 0.0-0.9 [facility] Comment on above: Result Comment: IG% - Immature Granulocytes (promyelocytes, myelocytes and metamyelocytes) > 1% indicates that a LEFT SHIFT is Present. Performed By: #### L 505.5000, L500.4050, L501.9100, L100.0100 #### [facility] [address] [place], [address] Lymphocytes/100 WBC (Bld) 29.3 % Normal 19-41 [facility] Comment on above: Performed By: #### L 505.5000, L500.4050, L501.9100, L100.0100 #### [facility] [address] [place], [address] MCH (RBC) [Entitic mass] 29.1 pg Normal 27.0-32.0 [facility] Comment on above: Performed By: #### L 505.5000, L500.4050, L501.9100, L100.0100 #### [facility] [address] [place], [address] MCHC (RBC) [Mass/Vol] 34.3 g/dL Normal 32-36 [facility] Comment on above: Performed By: #### L 505.5000, L500.4050, L501.9100, L100.0100 #### [facility] [address] [place], [address] MCV (RBC) [Entitic vol] 84.9 fL Normal 80-94 [facility] Comment on above: Performed By: #### L 505.5000, L500.4050, L501.9100, L100.0100 #### [facility] [address] [place], [address] Monocytes/100 WBC (Bld) 8.2 % Normal 0-10 [facility] Comment on above: Performed By: #### L 505.5000, L500.4050, L501.9100, L100.0100 #### [facility] [address] [place], [address] Neutrophils/100 WBC (Bld) 56.6 % Normal 47-70 [facility] Comment on above: Performed By: #### L 505.5000, L500.4050, L501.9100, L100.0100 #### [facility] [address] [place], [address] Nucleated RBC (Bld) [#/Vol] 0 10*3/uL Normal 0-5 [facility] Comment on above: Performed By: #### L 505.5000, L500.4050, L501.9100, L100.0100 #### [facility] [address] [place], [address] Platelet mean volume (Bld) [Entitic vol] 8.6 fL Normal 6.2-12.0 [facility] Comment on above: Performed By: #### L 505.5000, L500.4050, L501.9100, L100.0100 #### [facility] [address] [place], [address] Platelets (Bld) [#/Vol] 286 10*3/uL Normal 150-450 [facility] Comment on above: Performed By: #### L 505.5000, L500.4050, L501.9100, L100.0100 #### [facility] [address] [place], [address] RBC (Bld) [#/Vol] 4.98 10*6/uL Normal 4.6-6.2 [facility] Comment on above: Performed By: #### L 505.5000, L500.4050, L501.9100, L100.0100 #### [facility] [address] [place], [address] RDW SD 39.0 fl Normal 35.1-43.9 [facility] Comment on above: Performed By: #### L 505.5000, L500.4050, L501.9100, L100.0100 #### [facility] [address] [place], [address] WBC (Bld) [#/Vol] 7.7 10*3/uL Normal 4.4-11.0 [facility] Comment on above: Performed By: #### L 505.5000, L500.4050, L501.9100, L100.0100 #### [facility] [address] [place], [address] Comprehensive Metabolic Prof ilon 08-14-2023 Albumin [Mass/Vol] 3.7 g/dL Normal 3.2-5.0 [facility] Comment on above: Performed By: #### L 505.5000, L500.4050, L501.9100, L100.0100 ####[facility] [address] [place], [address] Albumin/Globulin [Mass ratio] 0.9 {ratio} Normal 0.9-2.4 [facility] Comment on above: Performed By: #### L 505.5000, L500.4050, L501.9100, L100.0100 ####[facility] [address] [place], [address] ALK P 83 U/L Normal 45-117 [facility] Comment on above: Performed By: #### L 505.5000, L500.4050, L501.9100, L100.0100 ####[facility] [address] [place], [address] ALT [Catalytic activity/Vol] 24 U/L Normal 16-61 [facility] Comment on above: Performed By: #### L 505.5000, L500.4050, L501.9100, L100.0100 ####[facility] [address] [place], [address] AST [Catalytic activity/Vol] 18 U/L Normal 15-37 [facility] Comment on above: Performed By: #### L 505.5000, L500.4050, L501.9100, L100.0100 ####[facility] [address] [place], [address] Bilirubin [Mass/Vol] 0.50 mg/dL Normal 0.20-1.00 [facility] Comment on above: Result Comment: For patients on eltrombopag therapy, use of Dimension [place] TBIL is not recommended. Performed By: #### L 505.5000, L500.4050, L501.9100, L100.0100 ####[facility] [address] [place], [address] BUN/CRE 16.8 RATIO Normal 10-20 [facility] Comment on above: Performed By: #### L 505.5000, L500.4050, L501.9100, L100.0100 ####[facility] [address] [place], [address] CA,Total 9.1 mg/dL Normal 8.5-10.1 [facility] Comment on above: Performed By: #### L 505.5000, L500.4050, L501.9100, L100.0100 ####[facility] [address] [place], [address] Chloride [Moles/Vol] 108 mmol/L High 98-107 [facility] Comment on above: Performed By: #### L 505.5000, L500.4050, L501.9100, L100.0100 ####[facility] [address] [place], [address] CO2 [Moles/Vol] 27.0 mmol/L Normal 21.0-32.0 [facility] Comment on above: Performed By: #### L 505.5000, L500.4050, L501.9100, L100.0100 ####[facility] [address] [place], [address] Creatinine [Mass/Vol] 0.95 mg/dL Normal 0.70-1.30 [facility] Comment on above: Result Comment: The validity of the calculated GFR GFRAA in patients over 70 years has not been determined. Clinical correlation is essential. Performed By: #### L 505.5000, L500.4050, L501.9100, L100.0100 ####[facility] [address] [place], [address] ECRCL 98.37 ml/min Normal [facility] Comment on above: Performed By: #### L 505.5000, L500.4050, L501.9100, L100.0100 ####[facility] [address] [place], [address] EST GFR - AA 109 mL/min Normal >60 [facility] Comment on above: Result Comment: Afri can Martiniquais GFR Calc Performed By: #### L 505.5000, L500.4050, L501.9100, L100.0100 ####[facility] [address] [place], [address] GAP 7 Normal 5-15 [facility] Comment on above: Performed By: #### L 505.5000, L500.4050, L501.9100, L100.0100 ####[facility] [address] [place], [address] GFR/1.73 sq M.predicted among non-blacks MDRD (S/P/Bld) [Vol rate/Area] 90 mL/min/{1.73_m2} Normal >60 [facility] Comment on above: Result Comment: Non- GFR Calc Performed By: #### L 505.5000, L500.4050, L501.9100, L100.0100 ####[facility] [address] [place], [address] Globulin (S) [Mass/Vol] 4.1 g/dL Normal 2.2-4.2 [facility] Comment on above: Performed By: #### L 505.5000, L500.4050, L501.9100, L100.0100 ####[facility] [address] [place], [address] Glucose [Mass/Vol] 109 mg/dL High 74-106 [facility] Comment on above: Result Comment: Fast ing Glucose result from 100 to 125 mg/dL suggests IMPAIRED HOMEOSTASIS per A.D.A. criteria. Performed By: #### L 505.5000, L500.4050, L501.9100, L100.0100 ####[facility] [address] [place], [address] Potassium [Moles/Vol] 3.6 mmol/L Normal 3.5-5.1 [facility] Comment on above: Performed By: #### L 505.5000, L500.4050, L501.9100, L100.0100 ####[facility] [address] [place], [address] Sodium [Moles/Vol] 142 mmol/L Normal 136-145 [facility] Comment on above: Performed By: #### L 505.5000, L500.4050, L501.9100, L100.0100 ####[facility] [address] [place], [address] T PROT 7.8 g/dL Normal 6.4-8.2 [facility] Comment on above: Performed By: #### L 505.5000, L500.4050, L501.9100, L100.0100 ####[facility] [address] [place], [address] Urea nitrogen [Mass/Vol] 16 mg/dL Normal 7-18 [facility] Comment on above: Performed By: #### L 505.5000, L500.4050, L501.9100, L100.0100 ####[facility] [address] [place], [address] Determination of erythrocyte mean corpuscular volume (MCV)Ordered By: Davonte Cole on 08-14-2023 MCV (RBC) [Entitic vol] 84.9 fL 80-94 [facility] Emergency Department Summary on 08-14-2023 Emergency Department Summary [facility] Medical Records Department [address] [place] [address] Emergency Department Summary 08/14/23 MR#: [id number] Acct: [id number] Name: ALMAZ ESTES Rep #: [id number] : 1975 48 From: Davonte [place] PCP: Care Physician,No Primary Status:ADM IN Location: [place] [address] HPI History of Present Illness Chief Complaint: [...] admission. A (more content not included)... Normal [facility] Erythrocyte distribution wid th ratioOrdered By: Davonte Kelsey on 08-14-2023 Erythrocyte distribution width (RBC) [Ratio] 12.6 % 11.6-14.6 [facility] Erythrocyte distribution wid th standard deviationOrdered By: Davonte Cole on 08-14-2023 Erythrocyte distribution width (RBC) [Entitic vol] 39.0 fL 35.1-43.9 [facility] H AND P Exam - Hospitaliston 08-14-2023 H&P Exam - Hospitalist [facility] Medical Records Department [address] [place] [address] H P Exam - Hospitalist 08/14/232226 MR#: [id number] Acct: [id number] Name: ALMAZ ESTES Rep #: [id number] : 1975 48 From: Carmita Spann MD PCP: Care Physician,No Primary Status:ADM IN Location: [facility] [id number] HPI - General General Date of Admission: [...] on suboxone prior) who [facility] 08[facility] w/ noted acute opiate [...] MDMA, cocaine, ethyl alcohol less than 3. [facility] Medical History Anxiety and depression Irritable bowel [...] moving a (more content not included)... Normal [facility] Hematocrit Auto (Bld) [Volum e fraction]Ordered By: Davonte Cole on 08-14-2023 Hematocrit (Bld) [Volume fraction] 42.3 % 40-54 [facility] Immature granulocytes/100 WB C Auto (Bld)Ordered By: Davonte Cole on 08-14-2023 Immature granulocytes/100 WBC (Bld) 0.300 % 0.0-0.9 [facility] Comment on above: IG% - Immature Granu locytes (promyelocytes, myelocytes and metamyelocytes) > 1% indicates that a LEFT SHIFT is Present. Laboratory - Chemistry and C hemistry - challengeOrdered By: Davonte Cole on 08-14-2023 Albumin/Globulin [Mass ratio] 0.9 {ratio} 0.9-2.4 [facility] ALP [Catalytic activity/Vol] 83 U/L 45-117 [facility] ALT [Catalytic activity/Vol] 24 U/L 16-61 [facility] CO2 [Moles/Vol] 27.0 mmol/L 21.0-32.0 [facility] Globulin (S) [Mass/Vol] 4.1 g/dL 2.2-4.2 [facility] Urea nitrogen/Creatinine [Mass ratio] 16.8 mg/mg 10-20 [facility] Laboratory - Drug toxicology Ordered By: Davonte Cole on 08-14-2023 Amphetamines Ql (U) Positive <1000 ng/mL [facility] Benzodiazepines Ql (U) Negative < 200 ng/mL [facility] Cannabinoids Screen Ql (U) Negative < 50 ng/mL [facility] Cocaine Ql (U) Positive < 300 ng/mL [facility] Opiates Ql (U) Negative < 300 ng/mL [facility] Laboratory - Hematology and Cell countsOrdered By: Davonte Cole on 08-14-2023 MCH (RBC) [Entitic mass] 29.1 pg 27.0-32.0 [facility] MCHC (RBC) [Mass/Vol] 34.3 g/dL 32-36 [facility] Nucleated RBC/100 WBC (Bld) [Ratio] 0 % 0-5 [facility] Platelet mean volume (Bld) [Entitic vol] 8.6 fL 6.2-12.0 [facility] Platelets (Bld) [#/Vol] 286 10*3/uL 150-450 [facility] No Panel InformationOrdered By: Davonte Cole on 08-14-2023 MDMA (Ecstasy) Screen Positive < 500 ng/mL [facility] Urine Barbiturates Screen Negative < 200 ng/mL [facility] Urine Drug Screen Comment [facility] Comment on above: CONFIRMATORY TESTING FOR [...] Urine Methadone Screen Negative < 300 ng/mL [facility] Estimated Creatinine Clearance Calc 98.37 ml/min [facility] Estimated GFR (MDRD) Amer 109 mL/min >60 [facility] Comment on above: GFR Calc Estimated GFR (MDRD) Non-Af Amer 90 mL/min >60 [facility] Comment on above: Non- GFR Calc Ethyl Alcohol Level < 3.0 mg/dL [facility] Comment on above: The serum:whole bloo d ethanol ratio is approximately 1.14and varies slightly with hematocrit. Medical Alcohol reference interval and critical value innon-tolerant individuals; 50 - 100 Impairment 100 Intoxication 100 - 250 Severe Poisoning 250 - 400 Deep/possible fatal coma RBC Auto (Bld) [#/Vol]Ordere d By: Davonte Cole on 08-14-2023 RBC (Bld) [#/Vol] 4.98 10*6/uL 4.6-6.2 [facility] Serum or plasma calcium john urement (mass/volume)Ordered By: Davonte Cole on 08-14-2023 Calcium [Mass/Vol] 9.1 mg/dL 8.5-10.1 [facility] Serum or plasma creatinine m easurement (mass/volume)Ordered By: Davonte Coel on 08-14-2023 Creatinine [Mass/Vol] 0.95 mg/dL 0.70-1.30 [facility] Comment on above: The validity of the calculated GFR & GFRAA in patients over 70 years has not been determined. Clinical correlation is essential. Serum or plasma urea nitroge n measurement (mass/volume)Ordered By: Davonte Cole on 08-14-2023 Urea nitrogen [Mass/Vol] 16 mg/dL 7-18 [facility] Thin prep Papanicolaou smear with manual screeningOrdered By: Davonte Cole on 08-14-2023 Thin prep Papanicolaou smear with manual screening 3.7 g/dL 3.2-5.0 [facility] Thin prep Papanicolaou smear with manual screening 18 U/L 15-37 [facility] Thin prep Papanicolaou smear with manual screening 7 5-15 [facility] Urine Drug Screen ([facility]IST[facility])on 08-14-2023 AMPHETAMINES Positive Abnormal <1000 ng/mL [facility] Comment on above: Performed By: #### L 505.5000, L500.4050, L501.9100, L100.0100 ####[facility] [address] [place], [address] BARBITIURATES Negative Normal < 200 ng/mL [facility] Comment on above: Performed By: #### L 505.5000, L500.4050, L501.9100, L100.0100 ####[facility] [address] [place], [address] BENZODIAZIPINE Negative Normal < 200 ng/mL [facility] Comment on above: Performed By: #### L 505.5000, L500.4050, L501.9100, L100.0100 ####[facility] [address] [place], [place], [phone] COCAINE Positive Abnormal < 300 ng/mL [facility] Comment on above: Performed By: #### L 505.5000, L500.4050, L501.9100, L100.0100 ####[facility] [address] [place], [place], [phone] ECSTACY Positive Abnormal < 500 ng/mL [facility] Comment on above: Performed By: #### L 505.5000, L500.4050, L501.9100, L100.0100 ####[facility] [address] [place], [place], [phone] METHADONE Negative Normal < 300 ng/mL [facility] Comment on above: Performed By: #### L 505.5000, L500.4050, L501.9100, L100.0100 ####[facility] [address] [place], [place], [phone] OPIATES Negative Normal < 300 ng/mL [facility] Comment on above: Performed By: #### L 505.5000, L500.4050, L501.9100, L100.0100 ####[facility] [address] [place], [address] PCP Negative Normal < 25 ng/mL [facility] Comment on above: Performed By: #### L 505.5000, L500.4050, L501.9100, L100.0100 ####[facility] [address] [place], [address] THC Negative Normal < 50 ng/mL [facility] Comment on above: Performed By: #### L 505.5000, L500.4050, L501.9100, L100.0100 ####[facility] [address] [place], [address] VISTA UDS PH 5 Normal [facility] Comment on above: Performed By: #### L 505.5000, L500.4050, L501.9100, L100.0100 ####[facility] [address] [place], [address] Urine phencyclidine (PCP) de tectionOrdered By: Davonte Cole on 08-14-2023 Phencyclidine Ql (U) Negative < 25 ng/mL [facility] Comp Metabolic Panelon 09-17 Alanine aminotransferase (ALT) 34 U/L Normal 13-69 [facility] Comment on above: Performed By: #### C MP3, ETOH4, HEMDF ####[facility] [employer] [id number] [place] [address] Alkaline phosphatase (ALP) 58 U/L Normal 38-126 [facility] Comment on above: Performed By: #### C MP3, ETOH4, HEMDF ####[facility] [employer] [id number] [place] [address] Anion gap 13 Normal [facility] Comment on above: Performed By: #### C MP3, ETOH4, HEMDF ####[facility] [employer] [id number] [place] [address] Aspartate aminotransferase (AST) 27 U/L Normal 15-46 [facility] Comment on above: Performed By: #### C MP3, ETOH4, HEMDF ####[address] [place], [place] Bilirubin (total) 0.9 mg/dL Normal 0.2-1.3 [facility] Comment on above: Performed By: #### C MP3, ETOH4, HEMDF ####[address] [place], [place] Calcium 9.7 mg/dL Normal 8.4-10.2 [facility] Comment on above: Performed By: #### C MP3, ETOH4, HEMDF ####[address] [place] CO2 26 mmol/L Normal 22-30 [facility] Comment on above: Performed By: #### C MP3, ETOH4, HEMDF ####[address] [place], [place] Glucose mass conc 108 mg/dL High 70-100 [facility] Comment on above: Performed By: #### C MP3, ETOH4, HEMDF ####[address] [place] Protein 8.1 g/dL Normal 6.3-8.2 [facility] Comment on above: Performed By: #### C MP3, ETOH4, HEMDF ####[address] [place], [place] Urea nitrogen 10 mg/dL Normal 7-20 [facility] Comment on above: Performed By: #### C MP3, ETOH4, HEMDF ####[address] [place] Creatinine 0.74 mg/dL Normal 0.52-1.25 [facility] Comment on above: Performed By: #### C MP3, ETOH4, HEMDF ####[address] [place] eGFR (black) mL/min/{1.73_m2} Normal >60 [facility] Comment on above: Performed By: #### C MP3, ETOH4, HEMDF ####[address] [place] eGFR (non-black) mL/min/{1.73_m2} Normal >60 [facility] Comment on above: Result Comment: Sour ce- MDRD equation with creatinine calibration to IDMS(NKDEP) eGFR not recommended for drug dose adjustment Performed By: #### C MP3, ETOH4, HEMDF ####[address] [place], [place] Potassium molar conc 4.5 mmol/L Normal 3.5-5.1 [facility] Comment on above: Performed By: #### C MP3, ETOH4, HEMDF ####[address] [place] Albumin 4.9 g/dL Normal 3.5-5.0 [facility] Comment on above: Performed By: #### C MP3, ETOH4, HEMDF ####[address] [place] Chloride 104 mmol/L Normal 98-107 [facility] Comment on above: Performed By: #### C MP3, ETOH4, HEMDF ####[address] [place] Sodium 144 mmol/L Normal 137-145 [facility] Comment on above: Performed By: #### C MP3, ETOH4, HEMDF ####[address] Drugs of Abuseon 09-17-2017 Oxycodone/Oxymorphin e,Ur Negative Normal [facility] Comment on above: Performed By: #### U AMAC, THC4, DRGA4 ####[address] [place], [place] Phencyclidine (PCP), Ur Negative Normal [facility] Comment on above: Result Comment: The [...] Performed By: #### U AMAC, THC4, DRGA4 ####[address] [address] [place], [place] Opiates, Ur Negative Normal [facility] Comment on above: Performed By: #### U AMAC, THC4, DRGA4 ####[address] [address] [facility] [place] Cocaine, Ur Negative Normal [facility] Comment on above: Performed By: #### U AMAC, THC4, DRGA4 ####[address] Methadone, Ur Negative Normal [facility] Comment on above: Performed By: #### U AMAC, THC4, DRGA4 ####[address] Amphetamines, Ur Negative Normal [facility] Comment on above: Performed By: #### U AMAC, THC4, DRGA4 ####[address] Barbiturates, Ur Negative Normal [facility] Comment on above: Performed By: #### U AMAC, THC4, DRGA4 ####[address] Benzodiazepines, Ur Negative Normal [facility] Comment on above: Performed By: #### U AMAC, THC4, DRGA4 ####[address] [place], [place] Ethanol Serum/Plasmaon 09-17 Ethanol-Serum/Plasma < 0.010 Normal 0.000-0.010 [facility] Comment on above: Result Comment: NOTE : This result is for medical treatment only. Analysis performed using non-forensic procedures. Performed By: #### C MP3, ETOH4, HEMDF ####[address] [address] [place], [place] Hemogram w/ Autodiffon 09-17 Basophils/100 WBC Auto (Bld) 0.6 % Normal 0.0-2.0 [facility] Comment on above: Performed By: #### C MP3, ETOH4, HEMDF ####[address] [place] Eosinophils/100 leukocytes 2.3 % Normal 1.0-6.0 [facility] Comment on above: Performed By: #### C MP3, ETOH4, HEMDF ####[address] [place] Erythrocyte distribution width Auto Ratio (RBC) 13.3 % Normal 11.5-14.5 [facility] Comment on above: Performed By: #### C MP3, ETOH4, HEMDF ####[address] [place] Erythrocytes (RBC) 5.41 10*6/uL Normal 4.40-5.90 [facility] Comment on above: Performed By: #### C MP3, ETOH4, HEMDF ####[address] Granulocytes/100 WBC (Bld) 77.6 % Normal 40.0-80.0 [facility] Comment on above: Performed By: #### C MP3, ETOH4, HEMDF ####[address] [place] Hematocrit (HCT) 47.2 % Normal 40.0-52.0 [facility] Comment on above: Performed By: #### C MP3, ETOH4, HEMDF ####[address] [place] Hemoglobin mass conc (Bld) 16.6 g/dL Normal 13.0-18.0 [facility] Comment on above: Performed By: #### C MP3, ETOH4, HEMDF ####[address] Lymphocytes/100 leukocytes 13.6 % Low 20.0-40.0 [facility] Comment on above: Performed By: #### C MP3, ETOH4, HEMDF ####[address] [place] MCH 30.7 pg Normal 26.0-34.0 [facility] Comment on above: Performed By: #### C MP3, ETOH4, HEMDF ####[address] MCHC mass conc (RBC) 35.2 % Normal 32.0-36.0 [facility] Comment on above: Performed By: #### C MP3, ETOH4, HEMDF ####[address] MCV 87.1 fL Normal 80.0-98.0 [facility] Comment on above: Performed By: #### C MP3, ETOH4, HEMDF ####[address] Monocytes/100 leukocytes 5.9 % Normal 2.0-10.0 [facility] Comment on above: Performed By: #### C MP3, ETOH4, HEMDF ####[address] Platelet mean volume (PMV) 7.0 fL Low 7.4-10.4 [facility] Comment on above: Performed By: #### C MP3, ETOH4, HEMDF ####[address] Platelets 257 10*3/uL Normal 140-440 [facility] Comment on above: Performed By: #### C MP3, ETOH4, HEMDF ####[address] WBC (Leukocytes) 8.2 10*3/uL Normal 3.6-10.7 [facility] Comment on above: Performed By: #### C MP3, ETOH4, HEMDF ####[address] Abs Baso Cnt 0.0 10*3/uL Normal 0.0-0.2 [facility] Comment on above: Performed By: #### C MP3, ETOH4, HEMDF ####[address] [place] Eosinophils 0.0 10*3/uL Normal 0.0-0.5 [facility] Comment on above: Performed By: #### C MP3, ETOH4, HEMDF ####[address] THC, Urineon 09-17-2017 THC, Ur Negative Normal [facility] Comment on above: Result Comment: Thre shold= 50 ng/mL Performed By: #### U AMAC, THC4, DRGA4 ####[address] Urinalysis,Macroon 8 Bilirubin (direct) Negative Normal Negative [facility] Comment on above: Performed By: #### U AMAC, THC4, DRGA4 ####[address] Ketone,Urine Negative Normal Negative [facility] Comment on above: Performed By: #### U AMAC, THC4, DRGA4 ####[address] [place], [place] Occult Blood,Ur Negative Normal Negative [facility] Comment on above: Performed By: #### U AMAC, THC4, DRGA4 ####[address] Specific [place],Urine 1.005 Normal 1.005-1.030 [facility] Comment on above: Performed By: #### U AMAC, THC4, DRGA4 ####[address] Total Protein,Urine Negative Normal Negative [facility] Comment on above: Performed By: #### U AMAC, THC4, DRGA4 ####[address] Urine, appearance clear Normal Clear [facility] Comment on above: Performed By: #### U AMAC, THC4, DRGA4 ####[facility] [address] [place] [address] Urine, color yellow Normal Lt. Yellow [facility] Comment on above: Performed By: #### U AMAC, THC4, DRGA4 ####[facility] [address] [place] [place] [place] [address] Urine, glucose presence NORM Normal Negative [facility] Comment on above: Performed By: #### U AMAC, THC4, DRGA4 ####[facility] [address] [facility], [place] Urine, nitrite presence Negative Normal Negative [facility] Comment on above: Performed By: #### U AMAC, THC4, DRGA4 ####[facility] [address] [place], [place] Urine, pH 7.0 Normal 5.0-8.0 [facility] Comment on above: Performed By: #### U AMAC, DANISHA4, DRGA4 ####[facility] [address] [facility], [place] Urine, urobilinogen NORM Normal 0-1 [facility] Comment on above: Performed By: #### U AMAC, THC4, DRGA4 ####[facility] [employer] [address] [place], [place] WBC (Leukocytes) Negative Normal Negative [facility] Comment on above: Performed By: #### U AMAC, DANISHA4, DRGA4 ####[facility] [address] [place], [place] PROGRESSon 05-04-2017 PROGRESS HNO ID: [id number] thor: Tom Burtervice: (none)Author Type: PhysicianType: Progress NotesFiled: 05/04/2017 11:40 AMNote Text:OPERATIVE NOTATION FOR [facility] SURGICAL PROCEDURE.April 18, 2017Daheydi Estes 1975 [id number] malePROCEDURE: EGD WITH BIOPSY - 69971-056ESILJAT: [place] Madrid M.D. FACS UTILIZATION MANAGEMENT MANAGER: NoneDEPT: WQ PROVIDER: X57=UchemvbTom Madrid MD POS: 4R7=GWGGCIRNHTYLZKNXZG: (K92.2, T39.395A) GI bleed due to NSAIDs [...] - Clean ContaminatedOperative note dictated in the [facility] dictationsystem.Tom Madrid MD [facility] CNOVon 04-23-2017 CNOV Office Visit (GENSWS) -------ALMAZ ESTES ([id number]) 1975 MDate Time Provider Department04/23/17 1:30 PM [...] related to your office visittoday with the [facility] General Surgeons.INSTRUCTIONS FOR PEPTIC ULCER DISEASE - [...] concerns, you shouldcontact our office immediately @ [phone] and [facility].Adrienne Richey PA-C 04/23/2017 4:58 PM SignedFOLLOW UP VISIT - ENDOSCOPYNAME: Almaz Bang NO.: [id number] OF SERVICE: 04/23/2017DOB: 1975REFERRING PHYSICIAN: Haylee Galicia [...] submitted in one cassette. /SJ:patrizia 04/18/17 TC:2CPT: 57704 x2, 88312 ___- Electronically Signed by: Dr. Tate Dietrich04/21/17 1414RESULTS:ANTIBODY / CLONE RESULTBlock AH Pylori (polyclonal) negativeThese tests were developed and their [facility]. They may not have been [...] with more than 50% of the total biyg-bh-khvxuwjw of the visit in counseling / coordination of care. BUCK Cast-CReferring Provider: TOM MADRID [[id number]]Allergies As of Date: 04/23/2017(No Known Allergies)Date Reviewed: [...] to your office visit today with the [facility] General Surgeons. INSTRUCTIONS FOR PEPTIC ULCER DISEASE [...] you should contact our office immediately @ [phone] and ask to be transferred to the General Surgery department.Follow-up and Disposition History RecordedEncounter Number: [id number] Status:Closed by ADRIENNE RICHEY PA-C on 04/23/17 [facility] PROGRESSon 04-23-2017 PROGRESS HNO ID: [id number] thor: Adrienne (Buck) GrafService: (none)Author Type: Physician AssistantType: Progress NotesFiled: 04/23/2017 4:58 PMNote Text:FOLLOW UP VISIT - ENDOSCOPYNAME: Almaz Bang NO.: [id number] OF SERVICE: 04/23/2017DOB: 1975REFERRING PHYSICIAN: Haylee Galicia [...] submitted in onecassette. / SJ:patrizia 04/18/17 TC:2CPT: 02949 x2, 88312 Electronically Signed by: Dr. Tate Dietrich 04/21/17 1414RESULTS:ANTIBODY / CLONE RESULTBlock AH Pylori (polyclonal) negativeThese tests were developed and their performance characteristicsdetermined by [facility]. They may not havebeen cleared [...] visit, with more than 50% of the rvphftrgt-wl-mbhe time of the visit in counseling / coordination of care. Adrienne Richey PA-C [facility] CNSWon 04-21-2017 [facility] Social Work (NORMA) -------ALMAZ ESTES ([id number]) 1975 MDate Time Provider Department04/21/17 KEIRY MELO (SW) During your visit today, we recorded the following information about you:FIORELLA Mccray 04/21/2017 10:46 AM SignedSocial Work Problem Referral NoteINFORMATION/REFERRAL : Almaz Estes 42 year old male was referred to [facility] for the following reason(s): Short term [...] directed to. Patient's phone went straight to voicePacketHopil, buthe does not have voicemail set up [...] Status:Closed by KEIRY MELO on 04/21/17 Normal [facility] PROGRESSon 04-21-2017 PROGRESS HNO ID: [id number] thor: Keiry Terrazas) Nathanielvice: (none)Author Type: Social WorkerType: Progress NotesFiled: 04/21/2017 10:46 AMNote Text:Social Work Problem Referral NoteINFORMATION/REFERRAL : Almaz Estes 42 year old male was referred [facility] Social Work for the following reason(s): [...] call back again later.F/U APPOINTMENT: FIORELLA Davidson [facility] CNChuyitan 04-18-2017 CNOP Operative Note (Enc) (GENSWS) -------Progress Notes:Tom Madrid MD 05/04/2017 11:40 AM SignedOPERATIVE NOTATION FOR [facility] SURGICAL PROCEDURE.April 18, 2017Almaz Estes 1975 [id number] malePROCEDURE: EGD WITH BIOPSY - 54029-760CWHISDG: Berlin Madrid M.D. FACS UTILIZATION MANAGEMENT MANAGER: NoneDEPT: NO PROVIDER: Z04=PdlyataTom Madrid MD POS:7A8=XCRDDZPQVLZANFGBPC: (K92.2, T39.395A) GI bleed due to NSAIDs [...] - Clean ContaminatedOperative note dictated in the [facility] dictation system.Tom Madrid MDEncounter Status:Closed by TOM MADRID MD on 05/04/17Encounter Number: [id number] Normal [facility] Vital Signs Date Time Vital Sign Value Performing Clinician Faci lity 08-17-2023 12:00-0400 Body temperature 97.2 [degF] No Primary Care Physician [facility] 08-17-2023 12:00-0400 Diastolic blood pressure 83 mm[Hg] No Primary Care Physician [facility] 08-17-2023 12:00-0400 Heart rate 71 /min No Primary Care Physician [facility] 08-17-2023 12:00-0400 Respiratory rate 14 /min No Primary Care Physician [facility] 08-17-2023 12:00-0400 SaO2% (BldA) [Mass fraction] 98 % No Primary Care Physician [facility] 08-17-2023 12:00-0400 Systolic blood pressure 127 mm[Hg] No Primary Care Physician [facility] 08-14-2023 23:37-0400 Body height 170.18 cm No Primary Care Physician [facility] 08-14-2023 23:37-0400 Body mass index (BMI) [Ratio] 28.4 kg/m2 No Primary Care Physician [facility] 08-14-2023 23:37-0400 Body weight 82.37 kg No Primary Care Physician [facility] 08-14-2023 22:53-0400 Body temperature 97.6 [degF] [facility] 08-14-2023 22:53-0400 Diastolic blood pressure 110 mm[Hg] [facility] 08-14-2023 22:53-0400 Heart rate 100 /min [facility] 08-14-2023 22:53-0400 Respiratory rate 18 /min [facility] 08-14-2023 22:53-0400 SaO2% (BldA) [Mass fraction] 97 % [facility] 08-14-2023 22:53-0400 Systolic blood pressure 121 mm[Hg] [facility] 08-14-2023 20:51-0400 Body height 170.18 cm [facility] 08-14-2023 20:51-0400 Body mass index (BMI) [Ratio] 28.2 kg/m2 [facility] 08-14-2023 20:51-0400 Body weight 81.73 kg [facility] Encounters Encounter Date Encounter Type Care Provider Facility Start: 08-17-2023 Non-patient / Non-visit No [facility] Physician [facility] Work Phone: Start: 08-16-2023 Non-patient / Non-visit No [facility] Physician [facility] Work Phone: Start: 08-15-2023 Non-patient / Non-visit No [facility] Physician [facility] Work Phone: Start: 08-14-2023 End: 08-17-2023 ambulatory [facility] Facility:[facility] Start: 08-14-2023 End: 08-17-2023 Evaluation and management of inpatient [facility] Work Phone: Start: 09-17-2017 Emergency department patient visit UNKNOWN PROVIDER [facility] Start: 04-23-2017 End: 04-28-2017 Ambulatory ADRIENNE RICHEY (PA) [facility] Plan of Treatment Date Care Activity Detail Author Start: 08-17-2023 Patient discharge [facility] Start: 08-15-2023 Assessment using assessment scale [facility] Start: 08-15-2023 [facility] Start: 08-14-2023 Following clinical p athway protocol [facility] Start: 08-14-2023 Assessment of risk o f venous thromboembolism [facility] Start: 08-14-2023 Introduction of urinary catheter [facility] Start: 08-14-2023 Notification of physician [facility] Start: 08-14-2023 Provision of activity privileges [facility] Start: 08-14-2023 Referral to service [facility] Start: 08-14-2023 Vital signs measurements [facility] Start: 08-14-2023 [facility] Start: 08-14-2023 Verification routine [facility] Start: 08-14-2023 Admission procedure [facility] Start: 08-14-2023 Hospital admission, emergency, from emergency room, medical nature [facility] Start: 08-14-2023 [facility] Patient referral [facility] Work Phone: Payers Date Payer Category Payer Self-pay [id number] 2023 Unknown [id number] 2023 Unknown [id number] 2023 Unknown [id number] Unknown Unknown ANTHEM [id number] Unknown [facility] PLAN [id number] Unknown [facility] [id number] Unknown [id number] 2.16.8 [id number] Unknown [id number] 2.16.8 [id number] Unknown [id number] 2.16.8 [id number] Unknown [id number] 2.16.8 [id number] Unknown [id number] 2.16.8 [id number] Social History Date Type Detail Facility Start: 08-14-2023 End: 08-15-2023 Tobacco smoking status NHIS Unknown if ever smoked [facility] Start: 04-17-2017 None [facility] Start: 04-17-2017 With Family [facility] Start: 04-17-2017 Cigarettes;Chew [facility] Start: 1975 Sex Assigned At Male [facility] Goals Date Patient Goal Desired Activity /State Functional Status Date Assessment Result Facility 08-17-2023 Functional status Ambulates;Up ad [facility] Work Phone: 08-16-2023 Functional status None [facility] Work Phone: Mental Status Date Assessment Result Facility 08-16-2023 Cognitive function Voice/Name [facility] Work Phone: Progress note 08-17-2023 Note Date & Type Note Facility 08-17-2023 Progress note Note Date/Time August 17, 2023 11:14a m [facility] Medical Records Department [address] [place] [address] Progress Note - Hospitalist 08/17/23 1114 MR#: [id number] Acct: [id number] Name: ALMAZ ESTES Rep #:[id number] : 1975 48 From: Anthony sterling DO PCP: Care Physician,No Primary Status :ADM IN Location: [address] Reason for Visit Reason for Visit: [...] is a 48-year-old male who presented to [facility] ED on 08/14/2023 for opiate detoxification. [...] 25 minutes. Charges/Coding Visit Charges Inpatient E&M: 91785 Subs Hosp L1 08/17/23 1248 <Electronically signed by Anthony Villanueva DO> Cosigner Signature (if applicable): CC: ~ Signed [facility] Work Phone: Discharge summary note 08-17-2023 Note Date & Type Note Facility 08-17-2023 Note [facility] Medical Records Department [address] [place] [address] Discharge Summary 08/17/23 1436 MR#: [id number] Acct: [id number] Name: ALMAZ ESTES Rep #: [id number] : 1975 48 From: Anthony Villanueva DO PCP: Care Physician,No Primary Status:ADM IN [facility] Prov[facility] Date of Admission: 08/14/23 Date of [...] is a 48-year-old male who presented to [facility] ED on 08/14/2023 for opiate detoxification. [...] Care Charges/Coding Visit Charges Inpatient E M: 12790 Disch Hosp 08/17/23 1437 Cosigner Signature (if applicable): CC: Dr. Anthony Villanueva DO; No Primary Care Physician Signed [facility] Progress note 08-16-2023 Note Date & Type Note Facility 08-16-2023 Progress note Note Date/Time August 16, 2023 9:24am [facility] Medical Records Department [address] [place] [address] Progress Note - Hospitalist 08/16/23923 MR#: [id number] Acct: [id number] Name: ALMAZ ESTES Rep #:[id number] : 1975 48 From: Anthony sterling DO PCP: Care Physician,No Primary Status :ADM IN Location: [facility] DA355-8 Reason for Visit Reason for Visit: Diagnoses [...] is a 48-year-old male who presented to [facility] ED on 08/14/2023 for opiate detoxification. [...] 25 minutes. Charges/Coding Visit Charges Inpatient E&M: 62358 Subs Hosp L1 08/16/23 1026 <Electronically signed by Anthony Villanueva DO> Cosigner Signature (if applicable): CC: ~ Signed [facility] Work Phone: Progress note 08-15-2023 Note Date & Type Note Facility 08-15-2023 Progress note Note Date/Time August 15, 2023 11:44am [facility] Medical Records Department [address] [place] [address] Progress Note - Hospitalist 08/15/23 1144 MR#: [id number] Acct: [id number] Name: ALMAZ ESTES Rep #:[id number] : 1975 48 From: Anthony sterling DO PCP: Care Physician,No Primary Status :ADM IN [facility] Reason for Visit Reason for Visit: Diagnoses [...] % (Auto) 56.6, Lymph % (Auto) 29.3, [place] % (Auto) 8.2, Eos % (Auto) 4.8, [...] is a 48-year-old male who presented to [facility] ED on 08/14/2023 for opiate detoxification. [...] 25 minutes. Charges/Coding Visit Charges Inpatient E&M: 44925 Subs Hosp L1 08/15/23 1536 <Electronically signed by Anthony Villanueva DO> Cosigner Signature (if applicable): CC: ~ Signed [facility] Work Phone: Discharge summary 08-15-2023 Note Date & Type Note Facility 08-15-2023 Discharge summary Note Date/Time August 14, 2023 9:13pm [facility] Medical Records Department [address] [place] [address] Emergency Department Summary 08/14/23 MR#: [id number] Acct: [id number] Name: ALMAZ ESTES Jazmine Rep #:[id number] : 1975 48 From: Davonte England PCP: Care Physician,No Primary Status :ADM IN Location: [place] [address] HPI History of Present Illness Chief Complaint: [...] clinician: Hospitalist This note was generated with [employer] dictation software. It may contain incorrectwords, spelling, [...] % (Auto) 56.6 Lymph % (Auto) 29.3 [place] % (Auto) 8.2 Eos % (Auto) 4.8 [...] drug user Disposition Disposition: Acute Care [facility] Discharge Date/Time: 08/14/23 23:00 What to do if you have Problems For any increased pain, shortness of breath, bleeding, nausea or vomiting, chestpain, or any unexpected problems, contact your Primary Care Provider. Call [facility] ([phone]) or report to the closest Emergency Room. Call 911 if necessary. 08/15/23 0035 <Electronically signed by Davonte England> Cosigner Signature (if applicable): CC: No Primary Care Physician ~ Signed [facility] Work Phone: History and physical note 08-15-2023 Note Date & Type Note Facility 08-15-2023 History and physi ravi note Note Date/Time August 14, 2023 10:28pm [facility] Records Department [address] [place] [address] H&P Exam - Hospitalist 08/14/237 MR#: [id number] Acct: [id number] Name: ALMAZ ESTES Rep #:[id number] : 1975 48 From: Carmita Spann MD PCP: Care Physician,No Primary Status :ADM IN Location: [facility] [id number] HPI - General General Date of Admission: [...] on suboxone prior) who presents [facility] on 08/14[facility]23 w/ noted acute opiate [...] amphetamine,MDMA, cocaine, ethyl alcohol less than 3. [facility] Medical History Anxiety and depression Irritable [...] % (Auto) 56.6, Lymph % (Auto) 29.3, Haskell % (Auto) 8.2, Eos % (Auto) 4.8, [...] on suboxone prior) who presents to the [facility] on 08/14/23 w/ noted acute opiate [...] of admission. Charges/Coding Visit Charges Inpatient E&M: 18387 Init Hosp L2 08/14/23 2252 <Electronically signed by Carmita Spann MD> Cosigner Signature (if applicable): CC: Dr. Carmita Spann MD; No Primary Care Physician~ Signed [facility] Work Phone: Discharge summary Note Date & Type Note Facility Discharge summary Note Date/Time August 17, 2023 2:35pm [facility] Medical Records Department [address] [place] [address] Instructions for Home/Discharge Instructions 08/17/23 1435 MR#: [id number] Acct: [id number] Name: CHELSIALMAZ Jazmine Rep #:[id number] : 1975 48 From: Anthony sterling DO [...] MD; No Primary Care Physician ~ Signed [facility] Work Phone: Discharge summary Note Date & Type Note Facility Discharge summary Note Date/Time August 17, 2023 2:38pm [facility] Medical Records Department [address] [place] [id number] Discharge Summary 08/17/23 1436 MR#: [id number] Acct: [id number] Name: ALMAZ ESTES Rep #:[id number] : 1975 48 From: Anthony sterling DO PCP: Care Physician,No Primary Status :ADM IN Location: [place] [address] Providers Date of Admission: 08/14/23 Date of [...] is a 48-year-old male who presented to [facility] ED on 08/14/2023 for opiate detoxification. [...] Self Care Charges/Coding Visit Charges Inpatient E&M: 17226 Disch Hosp 08/17/23 1437 <Electronically signed by Anthony Villanueva DO> Cosigner Signature (if applicable): CC: Dr. Anthony Villanueva DO; No Primary Care Physician~ Signed [facility] Work Phone: Evaluation note Note Date & Type Note Facility Evaluation note Diagnosis Onset Date Intravenous drug user acute Opioid dependence acute Opioid withdrawal acute [facility] Work Phone: History and physical note Note Date & Type Note Facility History and physical note Note Date/Time August 14, 2023 10:28pm [facility] Medical Records Department [address] [place] [address] H&P Exam - Hospitalist 08/14/232226 MR#: [id number] Acct: [id number] Name: ALMAZ ESTES Rep #:[id number] : 1975 48 From: Carmita Spann MD PCP: Care Physician,No Primary Status :ADM IN Location: [facility] [id number] HPI - General General Date of Admission: [...] on suboxone prior) who presents to [facility] on 08/14/23 w/ noted acute opiate [...] % (Auto) 56.6, Lymph % (Auto) 29.3, Haskell % (Auto) 8.2, Eos % (Auto) 4.8, [...] on suboxone prior) who presents to [facility] on 08/14/23 w/ noted acute opiate [...] of admission. Charges/Coding Visit Charges Inpatient E&M: 27129 Init Hosp L2 08/14/23 2251 <Electronically signed by Carmita Spann MD> Cosigner Signature (if applicable): CC: Dr. Carmita Spann MD; No Primary Care Physician~ Signed [facility] Work Phone: Summary Purpose Family History [...] August 14, 2023 9: 04pm Power of Edi Coordinator No August 14, 2023 9:04pm Advance Directive Response Recorded Date/ Time Advance Directives No November 21, 2013 10:18pm Living Will No August 14, 2023 11 :37pm Power of Edi Coordinator No August 14, 2023 11:37pm Chief Complaint [...] section and content) DATE CREATED AUTHOR 09/30/2017 [facility] DATE CREATED AUTHOR AUTHOR'S ORGANIZ ATION 10/06/2017 [facility] DATE CREATED AUTHOR AUTHOR'S ORGANIZ ATION 11/29/2023 [facility] Care Teams (unrecognized sec tion and content) [...] BE BASED ON THE PRIMARY CLINICAL RECORDS. [employer] provides no warranty or guarantee of the accuracy or completeness of information in this document.
[2025-01-01 16:56] LABS: Hematocrit 46.9 % (40-54); Hemoglobin 16.1 g/dL (13.0-16.5); Immature Granulocytes Count 0.050 X10^3/uL (0.0-0.0); Mean Corp Hgb Conc 34.3 g/dL (32-36); Mean Corpuscular Volume 90.4 fL (80-94); Mean Platelet Vol. 8.9 fl (6.2-12.0); NRBC Flagged by Analyzer 0 % (0-5); Platelet Count 265 K/mm3 (150-450); RBC Distribution Width CV 15.0 % (11.6-14.6); RBC Distribution Width SD 49.5 fl (35.1-43.9); Red Blood Count 5.19 M/mm3 (4.6-6.2); White Blood Count 10.0 K/mm3 (4.4-11.0)
[2025-01-01 16:59] LABS: Mucous, Urine 0 SEEN /hpf (<or=2+); Red Blood Cells-Urine 0 SEEN /hpf (0-5); Squamous Epithelial Cells - UA 0 SEEN /hpf (0-5)
[2025-01-01 17:04] LABS: Color, Urine Yellow (Yellow); Glucose, Dipstick Normal (Normal); Ketone-Dipstick 5 mg/dl (Negative); Leukocyte Esterase-Dipstick 25 /ul (Negative); Nitrite-Dipstick Negative (Negative); Occult Blood-Urine Negative /ul (Negative); Protein-Dipstick 30 mg/dl (Negative); Specific Gravity, Urine 1.025 (1.002-1.030); Urine Bilirubin Dipstick Negative (Negative)
[2025-01-01 17:28] LABS: Pro- Brain NATRIURETIC PEPTIDE 89 pg/mL (<=450); Troponin T High Sensitivity < 6 ng/L (<=22)
[2025-01-01 17:38] LABS: AST(SGOT) 25 U/L (<=37); Alanine Aminotransfer ALT/SGPT 17 U/L (<=46); Albumin, Serum 4.0 g/dL (3.5-5.0); Alkaline Phosphatase 76 U/L (40-129); Anion Gap 12 (5-15); BUN 6 mg/dL (4-19); BUN/Creat Ratio 7.5 RATIO (10-20); CORTISOL PM 1.84 ug/dL (2.68-10.50); Calcium,Total 8.8 mg/dL (7.6-11.0); Carbon Dioxide 22.3 mmol/L (21.0-32.0); Chloride 104 mmol/L (98-108); Estimated Creatinine Clearance 135.00 ml/min (50-250); Globulin 2.9 g/dL (2.2-4.2); Glucose 85 mg/dL (70-99); Potassium 3.9 mmol/L (3.3-5.1)
[2025-01-01 17:40] VITALS: BP 146/94; PULSE 67; RESP 18; O2SAT 97
[2025-01-01 18:58] VITALS: BP 157/95; PULSE 78; RESP 16; O2SAT 100
[2025-01-01 19:16] LABS: Troponin T High Sens 2 HR < 6 ng/L (<=22)
[2025-01-01 21:00] VITALS: BP 153/80; PULSE 98; RESP 16; O2SAT 100
--- NOTE | 2025-01-01 21:38 | EDS_ITS ---
HPI History of Present Illness Chief Complaint: Edema Detail of Chief Complaint: Edema, weight gain, orthopnea, pain in arms when he sleeps Informant: patient Onset/Context/Timing Onset: - (Varies detailed HPI narrative) Context: Sudden Onset Timing: Continuous Quality: Edema lower extremities, 60 pound weight gain, arm pain with sleep Location: Multiple Current Severity: Mild Maximum Severity: Moderate Worsened by: Arm pain when he sleeps otherwise not applicable Relieved by: Nothing Associated Symptoms Associated Symptoms: HPI narrative Narrative Narrative: Patient is a 49-year-old male. He is a former IV drug user. He has been clean for 8 months. He denies history of hepatitis or HIV. He denies fever, chills night sweats. He denies headache, visual, ocular auditory symptoms. He denies trouble with speech or swallowing. He does complain of some discomfort when he lies flat. He denies orthopnea or PND. He denies history of heart failure. He denies history of VTE. He has no risk factors for VTE. He denies chest pain, dyspnea. He has mild dyspnea with activity. He denies abdominal pain. He denies vomiting or diarrhea. He denies urologic symptoms. He states this past Friday he had trouble getting his right foot into his boot. He does stand a lot at work. He does have a history of anxiety per review of prior records. Prior similar symptoms: No Recent Illness/Hospitalization: No PFSH PFS Medical History Anxiety and depression IV drug abuse Polysubstance abuse Tobacco use Irritable bowel syndrome Home Medications ?Medication ?Instructions ?Recorded ?Last Taken ?Type NK 08/15/21 Unknown History Allergy/AdvReac Type Severity Reaction Status Date / Time No Known Allergies Allergy Verified 12/31/24 17:11 Family History Mother Rheumatoid arthritis Diabetes Father CAD (coronary artery disease) Heart disease Hypertension Myocardial infarction Surgical History History of dental surgery Social History household members: family Smoking Status: Current every day smoker tobacco type: cigarettes alcohol intake: former details: Used to remotely drink more heavy, currently rare intake. substance use type: heroin, opiates, IV drugs and methamphetamine ROS ROS ED Constitutional Constitutional ED: Denies chills, fever(s), subjective, sweats or weight loss Eyes Eyes: Denies blurry vision or change in vision ENT ENT ED: Denies ear pain, rhinorrhea or sore throat Cardiovascular Cardiovascular: Denies chest pain, orthopnea, palpitations, paroxysmal nocturnal dyspnea or racing heartbeat Respiratory/Chest Respiratory/Chest: Reports dyspnea and dyspnea on exertion; Denies cough, orthopnea or paroxysmal nocturnal dyspnea Gastrointestinal Gastrointestinal: Denies abdominal pain, diarrhea, nausea or vomiting Genitourinary Genitourinary ED: Reports other Details: Denies decreased or increased urine output. ; Denies dysuria, hematuria or urinary frequency Musculoskeletal Musculoskeletal: Reports back pain, myalgias and other Details: The myalgias and back pain are when he sleeps. ; Denies arthralgias or neck pain Integumentary Denies rash Neurologic Neurologic: Reports paresthesias RUE and LUE; Denies headache(s) or weakness Psychiatric Psychiatric: Denies anxiety or depression Endocrine Endocrinology: Denies cold intolerance or heat intolerance Hematologic/Lymphatic Hematologic/Lymphatic: Reports systems reviewed and no addt'l complaints, except as documented EXAM Physical Exam Const Vital Signs: 01/01/25 15:27 01/01/25 16:49 01/01/25 17:40 Temperature 98.5 F Temperature Source Oral Pulse Rate 91 67 Respiratory Rate 16 18 Respiratory Effort Normal Non-Labored Respiratory Pattern Normal Blood Pressure 161/147 H 146/94 H Blood Pressure Mean 151 111 Pulse Ox 100 97 Oxygen Delivery Method Room Air Room Air 01/01/25 18:58 01/01/25 21:00 Temperature Temperature Source Pulse Rate 78 98 Respiratory Rate 16 16 Respiratory Effort Respiratory Pattern Blood Pressure 157/95 H 153/80 H Blood Pressure Mean 115 104 Pulse Ox 100 100 Oxygen Delivery Method Room Air Room Air Positive well nourished and well developed Constitutional Narrative: BMI is 36.0. Patient's had numerous elevated blood pressure readings. He does not have history of hypertension. General Appearance ED: well developed; Negative for pallor HEENT Reports moist mucous membranes HEENT Narrative: Head is atraumatic normocephalic. Ears normal. TMs normal. Nares patent. Uvula midline. No deviation of the tongue with protrusion. Posterior pharynx is normal. Eyes PERRL and EOMs intact bilaterally General Eye ED: Negative for pale conjunctiva or scleral icterus Neck no lymphadenopathy, supple and no JVD Neck Narrative: There are no carotid bruits. Chest Wall palpation of chest normal Resp normal respiratory effort and clear to auscultation bilaterally Cardio regular rate, regular rhythm, S1 normal heart sound, S2 normal heart sound and no murmurs GI normal to inspection, nondistended, normoactive bowel sounds, non-tender, non- distended and no masses; Negative for hepatosplenomegaly Back/Spine no CVA tenderness Extremity normal to inspection Extremity Narrative: Bilateral pitting edema up to 2 mm. There is no asymmetry, discoloration, leg vein distention, palpable cords tenderness on the distribution deep venous system. General Extremety ED: Yes edema General Extremity: edema Neuro oriented x3, CN's II-XII intact bilaterally and no sensory deficits noted Sensorium / Orientation: alert Motor Exam: strength 5/5 throughout Psych mental status grossly normal Skin no rashes or lesions noted, no wounds and skin turgor normal General Skin Exam: elasticity normal; Negative for jaundice or pallor MDM MDM MDM Narrative Medical decision making narrative: Differential diagnosis would include dependent lymphedema, obstructive lymphedema, cardiac, renal disease or possibly liver disease. He has no symptoms that suggest malignancy. With his weight gain need to consider Cushi ng's. Will obtain cortisol level. He does not have a price face or buffalo hump noted. Also will obtain TSH to evaluate for hypothyroidism. Would not expect a 60 pound weight gain. More likely to have a 5 to 10 pound weight gain. History & Record Review Additional record(s) reviewed:: Prior inpatient record (Admitted for detox for intravenous drug use August 2023 at [facility].) and Prior ED visit (Intractable hiccups August 2021 and right upper quadrant pain October [address] Barnett and [address] Rahman respectively) Lab Data Attestation: I reviewed the patient's lab results. Lab results narrative: CBC is unremarkable. Comprehensive metabolic panel is unremarkable. Both troponins are normal. Urinalysis reveals mild proteinuria. Specific gravity is elevated 1.25. Cortisol level is low. In light of this we will refer to Dr. Cota. TSH is normal. Do not believe this to be Bobby's disease since his sodium and potassium are normal. Labs: Laboratory Results - last 24 hr 01/01/25 01/01/25 01/01/25 16:45 16:50 18:41 WBC 10.0 RBC 5.19 Hgb 16.1 Hct 46.9 MCV 90.4 MCH 31.0 MCHC 34.3 RDW Std Deviation 49.5 H RDW Coeff of Jorge 15.0 H Plt Count 265 MPV 8.9 Immature Gran % (Auto) 0.500 Neut % (Auto) 63.4 Lymph % (Auto) 24.6 Hitchcock % (Auto) 7.6 Eos % (Auto) 3.3 Baso % (Auto) 0.6 Absolute Neuts (auto) 6.4 Absolute Lymphs (auto) 2.46 Nucleated RBC % 0 Sodium 138 Potassium 3.9 Chloride 104 Carbon Dioxide 22.3 Anion Gap 12 BUN 6 Creatinine 0.77 Estim Creat Clear Calc 135.00 Est GFR (MDRD) Non-Af 110 BUN/Creatinine Ratio 7.5 L Glucose 85 Calcium 8.8 Total Bilirubin 0.34 AST 25 ALT 17 Alkaline Phosphatase 76 Troponin T High Sens < 6 Troponin T Hi Sens 2 Hr < 6 NT pro BNP II 89 Total Protein 6.9 Albumin 4.0 Globulin 2.9 Albumin/Globulin Ratio 1.4 TSH 2.480 Cortisol PM Sample 1.84 L Urine Color Yellow Urine Clarity Clear Urine pH 6.0 Ur Specific [place] 1.025 Urine Protein 30 H Urine Glucose (UA) Normal Urine Ketones 5 H Urine Occult Blood Negative Urine Nitrite Negative Urine Bilirubin Negative Urine Urobilinogen Normal Ur Leukocyte Esterase 25 H Urine RBC 0 SEEN Urine WBC 0-5 SEEN Ur Squamous Epith Cells 0 SEEN Urine Bacteria RARE Urine Mucus 0 SEEN Radiography Diagnostic Testing: Clinical Impression(s) from Imaging Studies Chest X-Ray 01/01/25 16:33 IMPRESSION: No radiographic evidence of an acute pulmonary infiltrate. - Other findings discussed above. Reading Location: [id number] Discharge Plan Triage Chief Complaint: Edema ED Provider: Eladio Tobar Dx/Rx/DC Orders Clinical Impression: Lymphedema of both lower extremities, Abnormal weight gain, Low serum cortisol level, Back pain Instructions: ED Lymphedema Prescriptions: No Action NK Primary Care Provider: Care Physician,No Primary Referrals: Fast,Keerthi, DO [Med Staff - Environmental Technician, Internal Medicine] - 1 Week Geovanni Cota MD [Med Staff - Courtesy Staff, Endocrinology] - 1 Week Care Physician,No Primary [Primary Care Provider, Medical] Activity Restrictions/Additional Instructions: Because your cortisol level is low you refer to Dr. Cota who is an process consultant. This will need further outpatient workup. You refer to Dr. Nguyen in the event you do not have a primary care physician to follow-up with. Print Language: Peruvian Disposition Disposition: Home, Self Care
[2025-01-01 21:59] VITALS: BP 149/78; PULSE 90; RESP 16; TEMP 36.7; O2SAT 100
== END 2025-01-01 21:59 | disposition home or self-care (01) ==
PROVIDERS: Emergency Provider Emergency Medicine; Visit Provider Emergency Medicine
DX: I89.0 Lymphedema, not elsewhere classified (principal); R63.4 Abnormal weight loss; M54.9 Dorsalgia, unspecified; F17.210 Nicotine dependence, cigarettes, uncomplicated; R06.00 Dyspnea, unspecified
CPT/HCPCS: 71046; 80053; 81001; 82533; 83880; 84443; 84484; 85025; 93005; 99283; A4216